=== PATIENT | female | born 1955 | race Caucasian/White ===

== ENCOUNTER 2016-11-16 14:24 | Inpatient (IN) | payer BC, MEDICAID ==
[~2016-11-16] VITALS: Ht 165.1 cm; Wt 63.5 kg
[2016-11-16 14:37] VITALS: Ht 165.1 cm; Wt 63.5 kg
[2016-11-16] MEDS ORDERED: ALBUTEROL 0.5% (NEB) 2.5 MG/0.5 ML AMP INH STA (14:53)
[2016-11-16] MEDS ORDERED: KETOROLAC 15 MG INJ IV STA (14:53)
[2016-11-16] MEDS ORDERED: SOD CHLORIDE 0.9% 1,000 ML IV STA (14:53)
--- NOTE | 2016-11-16 15:04 | ERA ---
ER Documentation Chief Complaint Date/Time DATE: 11/16/16 TIME: 15:01 Chief Complaint palpable chest wall pain since last night, non-radiating described as press HPI 61-year-old woman here for evaluation of anterior chest pain and complaints of shortness of breath, which occurred shortly after being placed at [facility]. She was just discharged from [facility] after being admitted for sepsis. She is on DNR status and has a long history of quadriplegia due to amyotrophic lateral sclerosis, and chronic respiratory failure with tracheostomy on mechanical ventilator dependence. Patient has chronic dysphagia and has a gastrostomy tube as well. Patient is nonverbal and can communicate with a consignee who was later at the bedside. HPI supplemented by speaking to consignee, reviewing residential records, previous medical records. ROS All systems reviewed and are negative except as per history of present illness. Medications Home Meds Reported Medications Eye Lubricant Combination No.1 (Freshkote) 15 Ml Drops, 1 DRP BOTH EYES TID Y for DRY EYES, BOTTLE 11/16/16 Potassium Chloride* (K-Dur*) 20 Meq Tab.prt.sr, 20 MEQ PO DAILY, TAB.SA 11/16/16 Propranolol Hcl* (Propranolol Hcl*) 10 Mg Tablet, 10 MG NG-TUBE Q6, TAB 11/16/16 Sennosides* (Senna Lax*) 8.6 Mg Tablet, 1 TAB NG-TUBE DAILY Y for CONSTIPATION, TAB 11/16/16 Bisacodyl* (Bisacodyl*) 10 Mg Supp, 10 MG GA DAILY, SUPP 11/16/16 Atorvastatin Calcium* (Atorvastatin Calcium*) 20 Mg Tablet, 20 MG NG-TUBE QHS, # 30 TAB 11/16/16 Aspirin (Low Dose Aspirin) 81 Mg Tablet.dr, 81 MG PO DAILY, #30 TAB 11/16/16 Apixaban* (Eliquis*) 5 Mg Tablet, 10 MG PO BID, TAB 11/16/16 Alprazolam* (Xanax*) 0.5 Mg Tab, 0.5 MG PO Q8H Y for ANXIETY, TAB 11/16/16 Allergies Allergies: Coded Allergies: No Known Allergy (Unverified , 11/16/16) PMhx/Soc DNR status, amyotrophic lateral sclerosis, chronic respiratory failure on mechanical ventilator, tracheostomy, colostomy tube, previous cardiac arrest with return of spontaneous circulation, congestive heart failure with left ventricular ejection fraction of 35%, hearing impaired FmHx Family History: No diabetes Physical Exam Vitals Vital Signs Date Time Temp Pulse Resp B/P Pulse Ox O2 Delivery O2 Flow Rate FiO2 11/16/16 16:55 76 18 98 35 11/16/16 15:51 86 18 95 35 11/16/16 14:37 97.8 107 18 89/64 95 11/16/16 14:30 106 18 93 45 Physical Exam GENERAL: Debilitated woman, appears dehydrated, hypotensive initially, afebrile HEENT: Dry mucous membranes, pink conjunctiva, tracheostomy is in place with surrounding skin appearing normal, no cervical spine deformity NEURO: Patient is able to communicate through a consignee CARDIAC: Tachycardic and regular, no murmurs rubs or gallops LUNGS: Crackles at the bases, no wheezing or stridor ABDOMEN: Soft nontender, no guarding, no rigidity, no rebound, no psoas sign no obturator sign. Normoactive bowel sounds SKIN: Warm and dry to touch, no abrasions, contusions, or hematomas, no lacerations, no ecchymosis, no target lesions, and without ulcers EXTREMITIES: No clubbing cyanosis, 2+ pitting edema in the lower extremities bilaterally, calves are bilaterally symmetrical, no Homans sign, no popliteal cord sign. Distal pulses equal and bilateral PSYCH: Depressed affect Result Diagram: 11/16/16 1535 11/16/16 1535 Results 24 hrs Laboratory Tests Test 11/16/16 15:24 11/16/16 15:35 Blood Gas Specimen Source Blood arterial Arterial Blood Date Drawn 11/16/2016 5:45:59 PM Arterial Blood pH (Temp corrected) 7.550 Arterial Blood pCO2 (Temp correct) 29.8mmhg Arterial Blood pO2 (Temp corrected) 103.4mmHG Arterial Blood HCO3 25.5mmol/L Arterial Blood Base Excess 3.3mmol/L Arterial Blood Oxygen Saturation 97.4mmHG Jerel Test ACCEPTAB Arterial Blood Gas Puncture Site Right Radial Arterial Blood Carboxyhemoglobin 0.2% Arterial Blood Methemoglobin 0.3% Blood Gas A-a O2 Differential 111.5mmHg Oxyhemoglobin Percent 96.9% Total Hemoglobin 8.7g/dl Blood Gas Temperature 37.0C Blood Gas Respiration Rate 18.0 Blood Gas Actual Respiration Rate 18 Blood Gas Modality VENT - AC FiO2 35.0% Blood Gas Tidal Volume 455.0mL Blood Gas Low PEEP Setting 5.0cmH2O Blood Gas Inspiratory Pressure 24.0 Blood Gas Notified Whom ELLI RT Blood Gas Notified Time 11/16/2016 6:05:55 PM White Blood Count 10.010^3/ul Red Blood Count 2.9510^6/ul Hemoglobin 8.6g/dl Hematocrit 26.8% Mean Corpuscular Volume 90.8fl Mean Corpuscular Hemoglobin 29.2pg Mean Corpuscular Hemoglobin Concent 32.1g/dl Red Cell Distribution Width 16.0% Platelet Count 05010^3/UL Mean Platelet Volume 8.6fl Neutrophils % 87.0% Lymphocytes % 5.0% Monocytes % 6.9% Eosinophils % 0.3% Basophils % 0.3% Nucleated Red Blood Cells % 0.0/100WBC Neutrophils # 8.710^3/ul Lymphocytes # 0.510^3/ul Monocytes # 0.710^3/ul Eosinophils # 0.010^3/ul Basophils # 0.010^3/ul Nucleated Red Blood Cells # 0.010^3/ul Prothrombin Time 21.2Sec Prothrombin Time Ratio 1.7 INR International Normalized Ratio 1.82 Urine Color STRAW Urine Clarity CLEAR Urine pH 7.0 Urine Specific [place] 1.005 Urine Ketones NEGATIVEmg/dL Urine Nitrite NEGATIVEmg/dL Urine Bilirubin NEGATIVEmg/dL Urine Urobilinogen NEGATIVEmg/dL Urine Leukocyte Esterase TRACELeu/ul Urine Microscopic RBC 2/HPF Urine Microscopic WBC 11/HPF Urine Yeast (Budding) MODERATE/HPF Urine Hemoglobin 1+mg/dL Urine Glucose NEGATIVEmg/dL Urine Total Protein NEGATIVEmg/dl Sodium Level 135mmol/L Potassium Level 2.8mmol/L Chloride Level 101mmol/L Carbon Dioxide Level 28mmol/L Anion Gap 9 Blood Urea Nitrogen 13mg/dl Creatinine 0.35mg/dl Glucose Level 117mg/dl Calcium Level 7.5mg/dl Total Bilirubin 0.2mg/dl Direct Bilirubin 0.00mg/dl Indirect Bilirubin 0.2mg/dl Aspartate Amino Transf (AST/SGOT) 20IU/L Alanine Aminotransferase (ALT/SGPT) 28IU/L Alkaline Phosphatase 109IU/L Troponin I < 0.012ng/ml B-Type Natriuretic Peptide 1090PG/ML Total Protein 5.9g/dl Albumin 2.2g/dl Globulin 3.70g/dl Albumin/Globulin Ratio 0.59 Lipase 95U/L Current Medications Medications (Trade) Dose Ordered Sig/Alida Route PRN Reason Start Time Stop Time Status Last Admin Dose Admin Albuterol 10 mg 10 mg ONCE STAT INH 11/16/16 14:53 11/16/16 15:02 DC 11/16/16 15:50 Sodium Chloride (NS) 1,000 ml @ 1,000 mls/hr Q1H STAT IV 11/16/16 14:53 11/16/16 15:52 DC 11/16/16 15:41 Ketorolac Tromethamine (Toradol) 15 mg ONCE STAT IV 11/16/16 14:53 11/16/16 15:02 DC 11/16/16 15:41 Lorazepam 0.5 mg 0.5 mg ONCE ONCE IV 11/16/16 16:30 11/16/16 16:31 DC 11/16/16 16:09 Potassium Chloride 250 ml @ 62.5 mls/hr ONCE ONCE IVPB 11/16/16 17:00 11/16/16 20:59 Fluconazole/ Sodium Chloride (Diflucan 100 Mg/ NS (Pmx)) 50 ml @ 50 mls/hr ONCE ONCE IVPB 11/16/16 17:00 11/16/16 17:59 DC 11/16/16 17:21 Procedures/MDM IV line was established patient was placed on seam feller rhythm strip revealed sinus tachycardia at 100 bpm. Patient was afebrile but initially hypotensive with a systolic blood pressure about 80 mmHg. Patient has been treated in the past with albuterol and given her complaints of chest pain or shortness of breath I administered albuterol 10 mg via nebulizer, and 1 L normal saline intravenously for initial hypotension. Patient was given lorazepam 0.5 mg IV 1 for anxiety and Toradol 15 mg IV 1 for complaints of pain. EKG performed, read by me revealed a sinus tachycardia 100 bpm, normal axis, narrow QRS complex, no concerning ST elevations or depressions noted. Flattened P and T waves consistent with acute hypokalemia One view chest x-ray performed, read by me reveals bilateral pulmonary vascular congestion, no pneumothorax, no end of the diaphragm, tracheostomy tube in place. CBC reveals anemia with a hemoglobin of 8.6, electrolytes reveal severe hypokalemia 2.8 and hypocalcemia at 7.5, liver function tests normal, troponin negative, BNP elevated over 1000. Urine analysis positive for funguria. Patient's blood pressure has improved and given her complaints of shortness of breath and x-ray findings I did treat her with a touch of furosemide at 20 mg IV 1, also administered calcium gluconate 1 g IV for acute hypocalcemia and fluconazole 200 mg IV for acute funguria. For acute severe hypokalemia patient received IV potassium supplementation Critical Care: Time: 48 minutes, this was time separate from other billable procedures. Treatments/Evaluations: Close monitoring and treatment of unstable vital signs, cardiorespiratory, and neurologic status, while maintaining tight balance of fluid, respiratory, and cardiac interventions. Patient admitted to telemetry setting for continued medical management and pulmonology consultation. Departure Diagnosis: Primary Impression: ALS (amyotrophic lateral sclerosis) Additional Impressions: Acute CHF Qualified Code: I50.41 - Acute combined systolic and diastolic congestive heart failure Acute hypokalemia Hypocalcemia Anemia Qualified Code: D64.9 - Anemia, unspecified type Candiduria Chest pain Qualified Code: R07.9 - Chest pain, unspecified type Condition: Serious ELSIE BENITEZ MD Nov 16, 2016 15:04
[2016-11-16] MEDS ORDERED: ALPR0.5T PO (15:11)
[2016-11-16] MEDS ORDERED: APIX5TAB PO (15:12)
[2016-11-16] MEDS ORDERED: ASPI-664 PO (15:12)
[2016-11-16] MEDS ORDERED: BISA10SU75 PR (15:14)
[2016-11-16] MEDS ORDERED: ATOR20TA38 NG-TUBE (15:14)
[2016-11-16] MEDS ORDERED: SENN-53 NG-TUBE (15:15)
[2016-11-16] MEDS ORDERED: PROP10TA6 NG-TUBE (15:16)
[2016-11-16] MEDS ORDERED: POTA20TA15 PO (15:17)
[2016-11-16] MEDS ORDERED: EYE15DRO BOTH EYES (15:19)
[2016-11-16 15:44] LABS: ABNORMAL IP MESSAGE 1; BASOPHILS % 0.3 % (0.0-2.0); EOSINOPHILS % 0.3 % (0.0-7.0); HEMATOCRIT 26.8 % (37.0-47.0); HEMOGLOBIN 8.6 g/dl (12.0-16.0); LYMPHOCYTES # 0.5 10^3/ul (0.8-2.9); MEAN CORPUSCULAR HEMOGLOBIN 29.2 pg (29.0-33.0); MEAN CORPUSCULAR HGB CONC 32.1 g/dl (32.0-37.0); MEAN CORPUSCULAR VOLUME 90.8 fl (82.0-101.0); MEAN PLATELET VOLUME 8.6 fl (7.4-10.4); MONOCYTE # 0.7 10^3/ul (0.3-0.9); MONOCYTES % 6.9 % (0.0-11.0); NEUTROPHIL # 8.7 10^3/ul (1.6-7.5); PLATELET COUNT 467 10^3/UL (140-415); RED BLOOD COUNT 2.95 10^6/ul (4.20-5.40)
[2016-11-16 15:45] LABS: POSITIVE DIFF @See below
--- NOTE | 2016-11-16 15:49 | RADRPT ---
PROCEDURE: XR Chest. CLINICAL INDICATION: Shortness of breath and abdominal pain TECHNIQUE: Single portable view of the chest was obtained COMPARISON: No priors for comparison FINDINGS: The trachea is midline. Tracheostomy tube in situ. The cardiac silhouette and pulmonary with a promi nent. There are diffuse bilateral infiltrates and bilateral lower lobe consolidation and moderate to large pleural effusions. IMPRESSION: 1. Tracheostomy tube in situ. 2. Cardiomegaly and pulmonary vascular congestion. 3. Diffuse bilateral infiltrates and lower lobe consolidation and moderate to large pleural effusion s. Cannot exclude pneumonia in the appropriate clinical setting. RPTAT: AAPP Physician Ty Date Time Electronically viewed and signed by Physician Ty on 11/16/2016 15:49 JL/
[2016-11-16 15:59] LABS: ADD UMIC YES; UR ASCORBIC ACID NEGATIVE (NEGATIVE); UR BILIRUBIN (Dip) NEGATIVE (NEGATIVE); UR BLOOD (Dip) 1+ mg/dL (NEGATIVE); UR BUDDING YEAST MODERATE /HPF (NONE SEEN); UR CLARITY CLEAR (CLEAR); UR COLOR STRAW (YELLOW); UR GLUCOSE (Dip) NEGATIVE (NEGATIVE); UR KETONES (Dip) NEGATIVE (NEGATIVE); UR LEUKOCYTE ESTERASE (Dip) TRACE Leu/ul (NEGATIVE); UR NITRITE (Dip) NEGATIVE (NEGATIVE); UR RBC 2 /HPF (0-5); UR SPECIFIC GRAVITY (Dip) 1.005 (1.003-1.030); UR TOTAL PROTEIN (Dip) NEGATIVE (NEGATIVE); UR UROBILINOGEN (Dip) NEGATIVE (NEGATIVE)
[2016-11-16 16:01] LABS: INR 1.82; PROTIME 21.2 Sec (12.2-14.2); PT RATIO 1.7
[2016-11-16 16:03] LABS: ALANINE AMINOTRANSFERASE 28 IU/L (13-69); ALBUMIN 2.2 g/dl (3.3-4.9); ALBUMIN/GLOBULIN RATIO 0.59; ALKALINE PHOSPHATASE 109 IU/L (42-121); ANION GAP 9 (8-16); ASPARTATE AMINO TRANSFERASE 20 IU/L (15-46); BILIRUBIN,INDIRECT 0.2 mg/dl (0-1.1); BILIRUBIN,TOTAL 0.2 mg/dl (0.2-1.3); BLOOD UREA NITROGEN 13 mg/dl (7-20); CALCIUM 7.5 mg/dl (8.4-10.2); CARBON DIOXIDE 28 mmol/L (21-31); CHLORIDE 101 mmol/L (97-110); CREATININE 0.35 mg/dl (0.44-1.00); GLUCOSE 117 mg/dl (70-220); SODIUM 135 mmol/L (135-144); TOTAL PROTEIN 5.9 g/dl (6.1-8.1)
[2016-11-16 16:05] LABS: POTASSIUM 2.8 mmol/L (3.5-5.1)
[2016-11-16 16:15] LABS: B-TYPE NATRIURETIC PEPTIDE 1090 PG/ML (0-125)
[2016-11-16 16:16] LABS: TROPONIN-I < 0.012 ng/ml (0.00-0.12)
[2016-11-16] MEDS ORDERED: LORAZEPAM 2 MG INJ IV ONE (16:30)
[2016-11-16] MEDS ORDERED: FLUCONAZOLE 100 MG/NS (PMX) 50 ML IVPB ONE (17:00)
[2016-11-16] MEDS ORDERED: POTASSIUM CHLORIDE 250 ML IVPB ONE (17:00)
[2016-11-16 18:06] LABS: AADO2 Arterial 111.5 mmHg (7.0-24.0); Allen Test ACCEPTAB; Arterial Base Excess 3.3 mmol/L (-3.0-3); Arterial COHb 0.2 % (0.0-3.0); Arterial Fraction of Oxyhgb 96.9 % (93.0-99.0); Arterial HCO3 25.5 mmol/L (22.0-26.0); Arterial MetHb 0.3 % (0.0-1.5); Arterial Total Hemglobin 8.7 g/dl (12.0-18.0); MODE VENT - AC
[2016-11-16] MEDS: POTASSIUM CHLORIDE 250 ML IVPB ONE ×2 (18:30→19:00)
--- NOTE | 2016-11-16 19:01 | HP ---
Date/Time of Note Date/Time of Note DATE: 11/16/16 TIME: 18:38 Assessment/Plan VTE Prophylaxis VTE Prophylaxis Intervention: LMWH Lines/Catheters Reason Cath still needed: urinary retention Assessment/Plan Chief Complaint/Hosp Course 61 yo female with ALS, chronic hypoxemic respiratory failure, recent trach, systolic CHF who was discharged from [place] this AM followign prolonged hospitalization there for respiratoyr failure for which she recieved abx and trach was placed. Sent from SNF for possible complaint of CP. Foudn to have hypokalemia and chronic CHF Hypokalemia: - Suspect 2/2 lasix - Replete w K Acute on chronic CHF exacerbation: - needs lasix but will replete K prior to loop diuretics ALS leading to chronic respiratory failure - Continue MV CP: - Likley 2/2 effusions, unable to provide history - EKG without signs of ischemia - Troponin negative Anemia: - Likely of chornic disease - Trend, check iron stores Discharge back to [facility] hopefully tomorrow DNR Problems: HPI/ROS Admit Date/Time Admit Date/Time Hx of Present Illness 61 yo female wt h/o systolic CHF and ALS presenting with report of chest pain Patient currently sedated and unable to provide a history. [facility] is [facility] and her director of business applications at the bedside. Patient was recently admitted to [facility] for respiratory failure 2/2 pneumoina and ALS. She comepleted a course of abx. She received a trach during the hsopitalization. Also diagnosed with systolic CHF with EF of 35% as well as an UE DVT for which she was prescribed Eliquis. Documents also mention that she was made DNR status during the admission. Interpretor at the bedside confirms that this is her wish The patient was [facility] [place] earlier this AM. When she arrived there, apparently poitned to her chest and there was concern for chest pain, so she was transferred here immediately. Here she was found to have b/l pleural effusions, hypokalemia. Given ativan and is now very sedated. PMH/Family/Social Past Medical History ALS Deafness Systolci CHF Chronic respiratory failure Social History Smoking Status: Former smoker Drug Use: none Exam/Review of Systems Vital Signs Vitals Vital Signs Date Time Temp Pulse Resp B/P Pulse Ox O2 Delivery O2 Flow Rate FiO2 11/16/16 16:55 76 18 98 35 11/16/16 14:37 97.8 89/64 Exam Exam Sedated following benzos Ventilated via trach Lungs rhoncorous anteriorly Heart sound regular Flaccid throughout consistent with ALS Pitting edeam to legs b/l Labs Result Diagram: 11/16/16 1535 11/16/16 1535 Medications Medications Current Medications Potassium Chloride 250 ml @ 62.5 mls/hr ONCE ONCE IVPB ; Start 11/16/16 at 17: 00; Stop 11/16/16 at 20:59 Calcium Gluconate/ Sodium Chloride (Ca Gluc/NS) 110 ml @ 110 mls/hr ONCE IVPB ; Start 11/16/16 at 20:00; Stop 11/16/16 at 20:59 LANA SHARMA MD Nov 16, 2016 19:00
[2016-11-16] MEDS ORDERED: NACL 0.9% 3 ML SYG IV SCH (19:30)
[2016-11-16] MEDS ORDERED: CALCIUM GLUCONATE 10% 1 GM in SOD CHLORIDE 0.9% 100 ML IVPB SCH (20:00)
[2016-11-16 22:29] VITALS: TEMP 98
[2016-11-16 23:45] VITALS: RESP 19
[2016-11-17] VITALS (26 sets, daily range): BP systolic 89–129; BP diastolic 53–78; PULSE 74–92; RESP 18
[2016-11-17] MEDS ORDERED: ARTIFICIAL TEARS 15 ML OPH BOTH EYES PRN (03:00)
[2016-11-17] MEDS ORDERED: PENDING SANTYL ORDER FOR WOUND CARE XX PRN (04:30)
[2016-11-17 06:37] LABS: IRON 16 ug/dl (35-150)
[2016-11-17 06:41] LABS: ALBUMIN/GLOBULIN RATIO 0.6; BILIRUBIN,INDIRECT 0.2 mg/dl (0-1.1); BILIRUBIN,TOTAL 0.2 mg/dl (0.2-1.3); CALCIUM 7.3 mg/dl (8.4-10.2); CREATININE 0.31 mg/dl (0.44-1.00); MAGNESIUM 1.6 mg/dl (1.7-2.5); TOTAL PROTEIN 5.3 g/dl (6.1-8.1)
[2016-11-17 06:47] LABS: TOTAL IRON BINDING CAPACITY 115 ug/dl (241-421)
[2016-11-17 07:06] LABS: POTASSIUM 2.7 mmol/L (3.5-5.1)
[2016-11-17] MEDS ORDERED: ENOXAPARIN 40 MG/0.4 ML SYG SC SCH (09:00)
[2016-11-17] MEDS: BISACODYL 10 MG SUPP PR SCH (09:00)
[2016-11-17] MEDS: APIXABAN 5 MG TABLET GTB SCH ×2 (09:56→22:36)
[2016-11-17] MEDS: ASPIRIN 81 MG TAB GTB SCH (09:56)
[2016-11-17] MEDS: POTASSIUM CHLORIDE 250 ML IVPB SCH ×2 (09:57→11:30)
[2016-11-17] MEDS: POTASSIUM CHLORIDE 20 MEQ POWDER FOR ORAL SOLN GTB SCH (10:00)
[2016-11-17] MEDS ORDERED: POTASSIUM CHLORIDE (SR) 20 MEQ TAB PO STA (10:25)
[2016-11-17] MEDS ORDERED: POTASSIUM CHLORIDE 250 ML IVPB ONE (10:30)
[2016-11-17] MEDS: morphine 2 MG INJ IV PRN ×3 (10:41→22:50)
[2016-11-17] MEDS: ONDANSETRON 4 MG INJ IV PRN ×2 (10:56→17:05)
--- NOTE | 2016-11-17 13:16 | PN ---
Date/Time of Note Date/Time of Note DATE: 11/17/16 TIME: 13:11 Assessment/Plan VTE Prophylaxis VTE Prophylaxis Intervention: LMWH Lines/Catheters IV Catheter Type (from Nrsg): Saline Lock Urinary Cath still in place: Yes Reason Cath still needed: urinary retention Assessment/Plan Chief Complaint/Hosp Course 61 yo female with ALS, Deafness, chronic respiratory failure on MV, recent trach , systolic CHF who was discharged from [place] this AM followign prolonged hospitalization there for respiratoyr failure for which she recieved abx and trach was placed. Sent from SNF for possible complaint of CP. Found to have hypokalemia and chronic CHF Hypokalemia: - Suspect 2/2 lasix - Replete w K Acute on chronic CHF exacerbation: - needs lasix but will replete K prior to loop diuretics ALS leading to chronic respiratory failure - Continue MV CP: - Likley 2/2 effusions, unable to provide history - EKG without signs of ischemia - Troponin negative Anemia: - Likely of chornic disease Need to further investigate patient's goals of care as she does not seem to want to continue with any interventions from what I am able to understand from her bark fitter. Will consult hospice DNR Problems: Subjective 24 Hr Interval Summary Free Text/Dictation Hypokalemia persists so now diuretics started Patient alert today. machine i cutter at bedside. Patient seem very opposed to returning to [facility]. Per bark fitter, keeps saying she wants to be allowed to pass away. Apparently there has been disagreement on palliative care between the patient and her daughter who very much is urging her mom to continue aggressive therapy and avoid hospice. No more complains of chest apain Exam/Review of Systems Vital Signs Vitals Vital Signs Date Time Temp Pulse Resp B/P Pulse Ox O2 Delivery O2 Flow Rate FiO2 11/17/16 12:25 98.0 88 18 89/53 97 11/17/16 11:10 35 11/16/16 22:29 Mechanical Ventilator Intake and Output 11/16/16 11/16/16 11/17/16 15:00 23:00 07:00 Intake Total 1050 ml Output Total 50 ml Balance 1050 ml -50 ml Exam Alert, comfortable Deaf Able to use her R toe to sign to intepreter via alphabet board Edematous MV via trach PEG Results Result Diagram: 11/16/16 1535 11/17/16 0543 Results 24 hrs Laboratory Tests Test 11/16/16 15:24 11/16/16 15:35 11/17/16 05:43 Blood Gas Specimen Source Blood arterial Arterial Blood Date Drawn 11/16/2016 5:45:59 PM Arterial Blood pH (Temp corrected) 7.550 H Arterial Blood pCO2 (Temp correct) 29.8 L Arterial Blood pO2 (Temp corrected) 103.4 H Arterial Blood HCO3 25.5 Arterial Blood Base Excess 3.3 H Arterial Blood Oxygen Saturation 97.4 Jerel Test ACCEPTAB Arterial Blood Gas Puncture Site Right Radial Arterial Blood Carboxyhemoglobin 0.2 Arterial Blood Methemoglobin 0.3 Blood Gas A-a O2 Differential 111.5 H Oxyhemoglobin Percent 96.9 Total Hemoglobin 8.7 L Blood Gas Temperature 37.0 Blood Gas Respiration Rate 18.0 Blood Gas Actual Respiration Rate 18 Blood Gas Modality VENT - AC FiO2 35.0 Blood Gas Tidal Volume 455.0 Blood Gas Low PEEP Setting 5.0 Blood Gas Inspiratory Pressure 24.0 Blood Gas Notified [place] CASTELLANOS Blood Gas Notified Time 11/16/2016 6:05:55 PM White Blood Count 10.0 Red Blood Count 2.95 L Hemoglobin 8.6 L Hematocrit 26.8 L Mean Corpuscular Volume 90.8 Mean Corpuscular Hemoglobin 29.2 Mean Corpuscular Hemoglobin Concent 32.1 Red Cell Distribution Width 16.0 H Platelet Count 467 H Mean Platelet Volume 8.6 Neutrophils % 87.0 H Lymphocytes % 5.0 L Monocytes % 6.9 Eosinophils % 0.3 Basophils % 0.3 Nucleated Red Blood Cells % 0.0 Neutrophils # 8.7 H Lymphocytes # 0.5 L Monocytes # 0.7 Eosinophils # 0.0 Basophils # 0.0 Nucleated Red Blood Cells # 0.0 Prothrombin Time 21.2 H Prothrombin Time Ratio 1.7 INR International Normalized Ratio 1.82 Urine Color STRAW Urine Clarity CLEAR Urine pH 7.0 Urine Specific [place] 1.005 Urine Ketones NEGATIVE Urine Nitrite NEGATIVE Urine Bilirubin NEGATIVE Urine Urobilinogen NEGATIVE Urine Leukocyte Esterase TRACE A Urine Microscopic RBC 2 Urine Microscopic WBC 11 H Urine Yeast (Budding) MODERATE A Urine Hemoglobin 1+ H Urine Glucose NEGATIVE Urine Total Protein NEGATIVE Sodium Level 135 136 Potassium Level 2.8 *L 2.7 *L Chloride Level 101 104 Carbon Dioxide Level 28 27 Anion Gap 9 8 Blood Urea Nitrogen 13 11 Creatinine 0.35 L 0.31 L Glucose Level 117 61 #L Calcium Level 7.5 L 7.3 L Total Bilirubin 0.2 0.2 Direct Bilirubin 0.00 0.00 Indirect Bilirubin 0.2 0.2 Aspartate Amino Transf (AST/SGOT) 20 21 Alanine Aminotransferase (ALT/SGPT) 28 29 Alkaline Phosphatase 109 91 Troponin I < 0.012 < 0.012 B-Type Natriuretic Peptide 1090 H Total Protein 5.9 L 5.3 L Albumin 2.2 L 2.0 L Globulin 3.70 H 3.30 H Albumin/Globulin Ratio 0.59 0.60 Lipase 95 Magnesium Level 1.6 L Iron Level 16 L Total Iron Binding Capacity 115 L Percent Iron Saturation 14 L Ferritin 699.0 H Medications Medications Current Medications Enoxaparin Sodium (Lovenox) 40 mg DAILY SC ; Start 11/17/16 at 09:00; Status Future Hold Alprazolam (Xanax) 0.5 mg Q8H PRN GTB ANXIETY; Start 11/17/16 at 03:00 Apixaban (Eliquis) 10 mg BID GTB Last administered on 11/17/16 09:56; Admin Dose 10 MG; Start 11/17/16 at 09:00 Aspirin (Aspirin) 81 mg DAILY GTB Last administered on 11/17/16 09:56; Admin Dose 81 MG; Start 11/17/16 at 09:00 Atorvastatin Calcium (Lipitor) 20 mg QHS GTB ; Start 11/17/16 at 21:00 Bisacodyl (Dulcolax Supp) 10 mg DAILY DE ; Start 11/17/16 at 09:00 Potassium Chloride (Potassium Chloride Pwd/Soln) 20 meq DAILY GTB Last administered on 11/17/16 10:00; Admin Dose 20 MEQ; Start 11/17/16 at 09:00 Senna (Senokot) 1 tab DAILY PRN GTB CONSTIPATION; Start 11/17/16 at 03:00 Eye Lubricant (Artificial Tears Oph) 1 drop TID PRN BOTH EYES DRY EYES; Start 11/17/16 at 03:00 Miscellaneous Information This patient ames... PRN PRN XX WOUND CARE; Start 11/17 at 04:30 Potassium Chloride (KCl 40 MEQ/250 ML NS) 250 ml @ 62.5 mls/hr Q4H IVPB Last administered on 11/17/16 09:57; Admin Dose 62.5 MLS/HR; Start 11/17/16 at 07:30 ; Stop 11/17/16 at 15:29 Morphine Sulfate 2 mg 2 mg Q2H PRN IV pain Last administered on 11/17/16 10:41 ; Admin Dose 2 MG; Start 11/17/16 at 10:30 Potassium Chloride (KCl 40 MEQ/250 ML NS) 250 ml @ 62.5 mls/hr ONCE ONCE IVPB ; Start 11/17/16 at 10:30; Stop 11/17/16 at 14:29 Ondansetron HCl (Zofran Inj) 4 mg Q4H PRN IV NAUSEA AND/OR VOMITING Last administered on 11/17/16 10:56; Admin Dose 4 MG; Start 11/17/16 at 11:00 LANA SHARMA MD Nov 17, 2016 13:16
[2016-11-17 17:31] LABS: CALCIUM 7.7 mg/dl (8.4-10.2); CREATININE 0.31 mg/dl (0.44-1.00); POTASSIUM 4.7 mmol/L (3.5-5.1)
[2016-11-17] MEDS: ATORVASTATIN 20 MG TAB GTB SCH (22:35)
--- NOTE | 2016-11-17 23:16 | RADRPT ---
Echocardiogram Report Patient Name: NORBERT HERNANDEZ Gender: Female Date: 1955 Study Date: 17-Nov-2016 Frontend Engineer: Misty [facility] Location: 529-A Ref. Physician: LANA SHARMA Quality: Adequate Procedures: Transthoracic echocardiogram with complete 2D, M-Mode, and doppler examination. Indications: Congestive Heart Failure. 2D/M Mode Doppler Measurement Value Normal Ranges Measurement Value Normal Ranges LVIDd 2D 3.9 3.5 - 5.6 cm AV Peak Fredi 1.1 m/sec LVIDs 2D 2.7 2.1 - 4.1 cm AV Peak PG 5.0 mmHg FS 2D 31.9 % LVOT Peak Fredi 1.0 m/sec LVPWd 2D 0.9 0.6 - 1.1 cm LVOT Peak PG 4.0 mmHg IVSd 2D 0.8 0.6 - 1.1 cm MV E Peak Fredi 0.8 m/sec IVS/LVPW 2D 0.9 MV A Peak Fredi 0.9 m/sec AoR Diam 2D 2.2 2.0 - 3.7 cm MV E/A 0.8 LA/Ao 2D 1 0 - 1 MV Decel Time 176 msec EDV 2D 60.2 cm3 MV E/A 0.8 ESV 2D 19.0 cm3 TR Peak Fredi 2.3 m/sec LA Dimen 2D 2.4 2.3 - 4.0 cm TR Peak PG 22.0 mmHg RVSP 30.0 mmHg Findings Left Ventricle: Lower limits of normal systolic function. Normal left ventricular cavity size. Normal left ventricular wall thickness. Ejection fraction is visually estimated at 50 %. Tissue Doppler/Mitral Doppler indices are consistent with impaired relaxation (Stage I diastolic dysfunction). Right Ventricle: Normal right ventricular size. Normal right ventricular systolic function. Left Atrium: The left atrium is normal in size. Right Atrium: The right atrium is normal in size. Mitral Valve: Mitral valve leaflets appear mildly thickened. Mild mitral annular calcification. Trace mitral regurgitation. Aortic Valve: No significant aortic stenosis or insufficiency. Aortic cusps appear mildly calcified. Tricuspid Valve: Normal appearance of the tricuspid valve. Estimated peak PA systolic pressure 30 mmHg. There is mild tricuspid regurgitation. Pulmonic Valve: Pulmonic valve not well visualized. There is trace pulmonic regurgitation. Pericardium: Trivial pericardial effusion. Left pleural effusion seen. Aorta: Normal aortic root. IVC: Inferior vena cava without respiratory collapse, however, patient on ventilator. Conclusions Lower limits of normal systolic function. Normal left ventricular cavity size. Normal left ventricular wall thickness. Ejection fraction is visually estimated at 50 %. Tissue Doppler/Mitral Doppler indices are consistent with impaired relaxation (Stage I diastolic dysfunction). Normal right ventricular size. Normal right ventricular systolic function. Mitral valve leaflets appear mildly thickened. Mild mitral annular calcification. Trace mitral regurgitation. No significant aortic stenosis or insufficiency. Aortic cusps appear mildly calcified. Normal appearance of the tricuspid valve. Estimated peak PA systolic pressure 30 mmHg. There is mild tricuspid regurgitation. Trivial pericardial effusion. Left pleural effusion seen. Electronically Signed By: Naeem Courtney 17-Nov-2016 23:15:36 -0700 Patient Name: NORBERT HERNANDEZ Study Date: 17-Nov-2016 [id number]
[2016-11-18] VITALS (25 sets, daily range): BP systolic 91–108; BP diastolic 52–67; PULSE 68–92; RESP 17–18
[2016-11-18] MEDS: morphine 2 MG INJ IV PRN ×4 (01:55→23:48)
[2016-11-18] MEDS: ALPRAZOLAM 0.5 MG TAB GTB PRN (01:55)
[2016-11-18] MEDS: BISACODYL 10 MG SUPP PR SCH (09:00)
[2016-11-18] MEDS: POTASSIUM CHLORIDE 20 MEQ POWDER FOR ORAL SOLN GTB SCH (09:08)
[2016-11-18] MEDS: ONDANSETRON 4 MG INJ IV PRN ×2 (09:09→14:41)
[2016-11-18] MEDS: APIXABAN 5 MG TABLET GTB SCH ×2 (09:09→21:12)
[2016-11-18] MEDS: ASPIRIN 81 MG TAB GTB SCH (09:09)
[2016-11-18] MEDS: LISINOPRIL 5 MG TAB PO SCH (10:00)
[2016-11-18 11:19] LABS: BASOPHIL # 0.1 10^3/ul (0.0-0.1); BASOPHILS % 0.6 % (0.0-2.0); EOSINOPHILS # 0.3 10^3/ul (0.0-0.5); EOSINOPHILS % 3.5 % (0.0-7.0); HEMATOCRIT 27.8 % (37.0-47.0); HEMOGLOBIN 8.6 g/dl (12.0-16.0); LYMPHOCYTES # 1.1 10^3/ul (0.8-2.9); LYMPHOCYTES % 13.7 % (15.0-51.0); MEAN CORPUSCULAR HEMOGLOBIN 28.7 pg (29.0-33.0); MEAN CORPUSCULAR HGB CONC 30.9 g/dl (32.0-37.0); MEAN CORPUSCULAR VOLUME 92.7 fl (82.0-101.0); MEAN PLATELET VOLUME 9.1 fl (7.4-10.4); MONOCYTE # 0.9 10^3/ul (0.3-0.9); MONOCYTES % 10.7 % (0.0-11.0); NEUTROPHIL # 5.6 10^3/ul (1.6-7.5); PLATELET COUNT 383 10^3/UL (140-415); RED CELL DISTRIBUTION WIDTH 15.9 % (11.5-14.5); WHITE BLOOD COUNT 7.9 10^3/ul (4.8-10.8)
[2016-11-18 11:42] LABS: ALBUMIN/GLOBULIN RATIO 0.54; CALCIUM 7.5 mg/dl (8.4-10.2); CREATININE 0.32 mg/dl (0.44-1.00); POTASSIUM 4.4 mmol/L (3.5-5.1); TOTAL PROTEIN 5.7 g/dl (6.1-8.1)
--- NOTE | 2016-11-18 15:45 | PN ---
Date/Time of Note Date/Time of Note DATE: 11/18/16 TIME: 15:43 Assessment/Plan VTE Prophylaxis VTE Prophylaxis Intervention: LMWH Lines/Catheters IV Catheter Type (from Nrs): Saline Lock Urinary Cath still in place: Yes Reason Cath still needed: urinary retention Assessment/Plan Chief Complaint/Hosp Course 61 yo female with ALS, Deafness, chronic respiratory failure on MV, recent trach , systolic CHF who was discharged from [place] this AM followign prolonged hospitalization there for respiratoyr failure for which she recieved abx and trach was placed. Sent from SNF for possible complaint of CP. Found to have hypokalemia and chronic CHF Hypokalemia: - Resolved Acute on chronic CHF exacerbation: - Start lasix diuresis - LORI started, BB also indicated if in GOC ALS leading to chronic respiratory failure - Continue MV CP: - Likley 2/2 effusions, unable to provide history - EKG without signs of ischemia - Troponin negative Anemia: - Likely of chornic disease Need to further investigate patient's goals of care as she does not seem to want to continue with any interventions from what I am able to understand from her burn nurse. Will consult hospice. Patient stable for discharge to SNF DNR Problems: Subjective 24 Hr Interval Summary Free Text/Dictation Hypokalemia resolved, diuretics started today Discussion with patient's daughter (also deaf) and patient via chief mate Patient very much would like to return home eventually. Last had planned for this and recieved 6 hours of home care daily. Daughter feels like this is not enough and she is incapable of providing 24 hour care her mom likely needs. Decision made to transfer back to [facility] in [place] if possible Exam/Review of Systems Vital Signs Vitals Vital Signs Date Time Temp Pulse Resp B/P Pulse Ox O2 Delivery O2 Flow Rate FiO2 11/18/16 15:31 76 18 94 35 11/18/16 13:47 98.0 93/55 11/16/16 22:29 Mechanical Ventilator Intake and Output 11/17/16 11/17/16 11/18/16 15:00 23:00 07:00 Intake Total 80 ml 416 ml Output Total 800 ml 1100 ml Balance -720 ml -684 ml Results Result Diagram: 11/18/16 1100 11/18/16 1100 Results 24 hrs Laboratory Tests Test 11/17/16 17:01 11/18/16 11:00 Sodium Level 134 L 135 Potassium Level 4.7 # 4.4 Chloride Level 105 106 Carbon Dioxide Level 26 28 Anion Gap 8 5 L Blood Urea Nitrogen 12 10 Creatinine 0.31 L 0.32 L Glucose Level 62 L 84 Calcium Level 7.7 L 7.5 L White Blood Count 7.9 # Red Blood Count 3.00 L Hemoglobin 8.6 L Hematocrit 27.8 L Mean Corpuscular Volume 92.7 Mean Corpuscular Hemoglobin 28.7 L Mean Corpuscular Hemoglobin Concent 30.9 L Red Cell Distribution Width 15.9 H Platelet Count 383 Mean Platelet Volume 9.1 Neutrophils % 71.0 Lymphocytes % 13.7 L Monocytes % 10.7 Eosinophils % 3.5 Basophils % 0.6 Nucleated Red Blood Cells % 0.0 Neutrophils # 5.6 Lymphocytes # 1.1 Monocytes # 0.9 Eosinophils # 0.3 Basophils # 0.1 Nucleated Red Blood Cells # 0.0 Total Bilirubin 0.0 L Direct Bilirubin 0.00 Indirect Bilirubin 0.0 Aspartate Amino Transf (AST/SGOT) 20 Alanine Aminotransferase (ALT/SGPT) 27 Alkaline Phosphatase 98 Total Protein 5.7 L Albumin 2.0 L Globulin 3.70 H Albumin/Globulin Ratio 0.54 Medications Medications Current Medications Enoxaparin Sodium (Lovenox) 40 mg DAILY SC ; Start 11/17/16 at 09:00; Status Future Hold Alprazolam (Xanax) 0.5 mg Q8H PRN GTB ANXIETY Last administered on 11/18/16 01 :55; Admin Dose 0.5 MG; Start 11/17/16 at 03:00 Apixaban (Eliquis) 10 mg BID GTB Last administered on 11/18/16 09:09; Admin Dose 10 MG; Start 11/17/16 at 09:00 Aspirin (Aspirin) 81 mg DAILY GTB Last administered on 11/18/16 09:09; Admin Dose 81 MG; Start 11/17/16 at 09:00 Atorvastatin Calcium (Lipitor) 20 mg QHS GTB Last administered on 11/17/16 22: 35; Admin Dose 20 MG; Start 11/17/16 at 21:00 Bisacodyl (Dulcolax Supp) 10 mg DAILY [place] ; Start 11/17/16 at 09:00 Potassium Chloride (Potassium Chloride Pwd/Soln) 20 meq DAILY GTB Last administered on 11/18/16 09:08; Admin Dose 20 MEQ; Start 11/17/16 at 09:00 Senna (Senokot) 1 tab DAILY PRN GTB CONSTIPATION; Start 11/17/16 at 03:00 Eye Lubricant (Artificial Tears Oph) 1 drop TID PRN BOTH EYES DRY EYES; Start 11/17/16 at 03:00 Miscellaneous Information (Pending [facility] Order For Wound Care) This patient ames... PRN PRN XX WOUND CARE; Start 11/17/16 at 04:30 Morphine Sulfate (morphine) 2 mg Q2H PRN IV pain Last administered on 14:41; Admin Dose 2 MG; Start 11/17/16 at 10:30 Ondansetron HCl (Zofran Inj) 4 mg Q4H PRN IV NAUSEA AND/OR VOMITING Last administered on 11/18/16 14:41; Admin Dose 4 MG; Start 11/17/16 at 11:00 Lisinopril (Zestril) 5 mg DAILY PO ; Start 11/18/16 at 10:00 ALNA SHARMA MD Nov 18, 2016 15:45
[2016-11-18] MEDS: FUROSEMIDE 20 MG INJ IV SCH ×2 (17:50→18:00)
[2016-11-18] MEDS: ATORVASTATIN 20 MG TAB GTB SCH (21:12)
[2016-11-19] VITALS (23 sets, daily range): BP systolic 92–109; BP diastolic 51–70; PULSE 71–91; RESP 17–19
[2016-11-19] MEDS: FUROSEMIDE 20 MG INJ IV SCH ×2 (06:38→18:00)
[2016-11-19] MEDS: morphine 2 MG INJ IV PRN ×3 (06:52→22:42)
[2016-11-19] MEDS: ASPIRIN 81 MG TAB GTB SCH (08:58)
[2016-11-19] MEDS: POTASSIUM CHLORIDE 20 MEQ POWDER FOR ORAL SOLN GTB SCH (08:58)
[2016-11-19] MEDS: APIXABAN 5 MG TABLET GTB SCH ×2 (08:59→20:49)
[2016-11-19] MEDS: LISINOPRIL 5 MG TAB PO SCH (08:59)
[2016-11-19] MEDS: BISACODYL 10 MG SUPP PR SCH (09:00)
[2016-11-19] MEDS ORDERED: ALBUTEROL/IPRATROPIUM (NEB) 3 ML AMP HHN SCH (17:00)
--- NOTE | 2016-11-19 17:18 | PN ---
Date/Time of Note Date/Time of Note DATE: 11/19/16 TIME: 17:10 Assessment/Plan VTE Prophylaxis VTE Prophylaxis Intervention: other Lines/Catheters IV Catheter Type (from Nrsg): Saline Lock Assessment/Plan Chief Complaint/Hosp Course 1. Advanced ALS with chronic respiratory failure status post tracheostomy on vent Continue vent management, pulmonology consultation Daughter would like to make changes trach site but sister does not want to make these changes as she was told by regional safety manager that her trach should be left as is, will discuss with pulmonology, RT aware 2. Chest pain secondary to pulmonary edema compared to mild CHF exacerbation Echo shows an EF of 50% Continue diuresis LORI started, BB also indicated if in GOC Troponin negative, EKG without signs of ischemia 3. Deafness 4. Anemia likely of chronic disease Prophylaxis: Eliquis Problems: Subjective 24 Hr Interval Summary Subjective hx not possible: pt non-verbal Exam/Review of Systems Vital Signs Vitals Vital Signs Date Time Temp Pulse Resp B/P Pulse Ox O2 Delivery O2 Flow Rate FiO2 11/19/16 16:31 81 11/19/16 15:30 18 99 35 11/19/16 15:11 98.6 105/70 11/19/16 06:30 Mechanical Ventilator Intake and Output 11/18/16 11/18/16 11/19/16 15:00 23:00 07:00 Intake Total 460 ml 365 ml Output Total 800 ml 600 ml Balance -340 ml -235 ml Exam Constitutional: alert, non-verbal Respiratory: clear to auscultation Cardiovascular: regular rate and rhythm Gastrointestinal: soft, No distended Musculoskeletal: nl extremities to inspection Results Result Diagram: 11/18/16 1100 11/18/16 1100 Medications Medications Current Medications Enoxaparin Sodium (Lovenox) 40 mg DAILY SC ; Start 11/17/16 at 09:00; Status Future Hold Alprazolam (Xanax) 0.5 mg Q8H PRN GTB ANXIETY Last administered on 11/18/16 01 :55; Admin Dose 0.5 MG; Start 11/17/16 at 03:00 Apixaban (Eliquis) 10 mg BID GTB Last administered on 11/19/16 08:59; Admin Dose 10 MG; Start 11/17/16 at 09:00 Aspirin (Aspirin) 81 mg DAILY GTB Last administered on 11/19/16 08:58; Admin Dose 81 MG; Start 11/17/16 at 09:00 Atorvastatin Calcium (Lipitor) 20 mg QHS GTB Last administered on 11/18/16 21: 12; Admin Dose 20 MG; Start 11/17/16 at 21:00 Bisacodyl (Dulcolax Supp) 10 mg DAILY [place] ; Start 11/17/16 at 09:00 Potassium Chloride (Potassium Chloride Pwd/Soln) 20 meq DAILY GTB Last administered on 11/19/16 08:58; Admin Dose 20 MEQ; Start 11/17/16 at 09:00 Senna (Senokot) 1 tab DAILY PRN GTB CONSTIPATION; Start 11/17/16 at 03:00 Eye Lubricant (Artificial Tears Oph) 1 drop TID PRN BOTH EYES DRY EYES; Start 11/17/16 at 03:00 Miscellaneous Information (Pending [facility] Order For Wound Care) This patient ames... PRN PRN XX WOUND CARE; Start 11/17/16 at 04:30 Morphine Sulfate (morphine) 2 mg Q2H PRN IV pain Last administered on 13:41; Admin Dose 2 MG; Start 11/17/16 at 10:30 Ondansetron HCl (Zofran Inj) 4 mg Q4H PRN IV NAUSEA AND/OR VOMITING Last administered on 11/18/16 14:41; Admin Dose 4 MG; Start 11/17/16 at 11:00 Lisinopril (Zestril) 5 mg DAILY PO ; Start 11/18/16 at 10:00 PATRICK NEWMAN Nov 19, 2016 17:18
[2016-11-19] MEDS: ATORVASTATIN 20 MG TAB GTB SCH (20:49)
[2016-11-19] MEDS: IPRATROPIUM (HFA) 12.9 GM INHALER INH SCH (21:37)
[2016-11-19] MEDS: ALBUTEROL 18 GM INHALER INH SCH (21:37)
[2016-11-20] VITALS (23 sets, daily range): BP systolic 86–108; BP diastolic 52–63; PULSE 72–91; RESP 17–21
[2016-11-20] MEDS: ALBUTEROL 18 GM INHALER INH SCH ×6 (01:21→20:57)
[2016-11-20] MEDS: IPRATROPIUM (HFA) 12.9 GM INHALER INH SCH ×6 (01:21→20:57)
[2016-11-20] MEDS: morphine 2 MG INJ IV PRN ×6 (03:19→21:23)
[2016-11-20] MEDS: FUROSEMIDE 20 MG INJ IV SCH ×2 (06:00→18:28)
[2016-11-20 08:27] LABS: BASOPHIL # 0.1 10^3/ul (0.0-0.1); BASOPHILS % 0.6 % (0.0-2.0); EOSINOPHILS # 0.4 10^3/ul (0.0-0.5); EOSINOPHILS % 5.3 % (0.0-7.0); HEMOGLOBIN 8.6 g/dl (12.0-16.0); LYMPHOCYTES # 1.5 10^3/ul (0.8-2.9); LYMPHOCYTES % 19.5 % (15.0-51.0); MEAN CORPUSCULAR HEMOGLOBIN 28.5 pg (29.0-33.0); MEAN CORPUSCULAR HGB CONC 30.7 g/dl (32.0-37.0); MEAN CORPUSCULAR VOLUME 92.7 fl (82.0-101.0); MEAN PLATELET VOLUME 10.1 fl (7.4-10.4); MONOCYTE # 0.9 10^3/ul (0.3-0.9); MONOCYTES % 11.5 % (0.0-11.0); NEUTROPHIL # 4.8 10^3/ul (1.6-7.5); NEUTROPHILS % 62.6 % (39.0-77.0); PLATELET COUNT 412 10^3/UL (140-415); RED BLOOD COUNT 3.02 10^6/ul (4.20-5.40); RED CELL DISTRIBUTION WIDTH 15.9 % (11.5-14.5); WHITE BLOOD COUNT 7.7 10^3/ul (4.8-10.8)
[2016-11-20 08:50] LABS: CALCIUM 7.4 mg/dl (8.4-10.2); CREATININE 0.3 mg/dl (0.44-1.00); MAGNESIUM 1.6 mg/dl (1.7-2.5); POTASSIUM 3.7 mmol/L (3.5-5.1)
[2016-11-20] MEDS: BISACODYL 10 MG SUPP PR SCH ×2 (09:00→09:10)
[2016-11-20] MEDS: ASPIRIN 81 MG TAB GTB SCH (09:09)
[2016-11-20] MEDS: APIXABAN 5 MG TABLET GTB SCH ×2 (09:09→21:11)
[2016-11-20] MEDS: POTASSIUM CHLORIDE 20 MEQ POWDER FOR ORAL SOLN GTB SCH (09:10)
[2016-11-20] MEDS: LISINOPRIL 5 MG TAB PO SCH (09:10)
[2016-11-20] MEDS ORDERED: MAGNESIUM SULFATE 2 GM/50 ML 50 ML IVPB ONE (10:30)
--- NOTE | 2016-11-20 14:57 | CONS ---
Date/Time of Note Date/Time of Note DATE: 11/20/16 TIME: 14:52 Assessment/Plan Assessment/Plan Additional Assessment/Plan Chest x-ray was reviewed from fourth of this month which is showing extensive bilateral infiltrates. Difficult to rule out superimposed pulmonary fibrosis. 2D echocardiogram results are indicating preserved systolic function. Assessment and recommendations; 1. Patient admitted with anemia and chest pain. 2. Extensive bilateral alveolar infiltrates indicative of pneumonia versus interstitial fibrosis. 3. Chronic respiratory failure due to ALS. Add vancomycin and cefepime. Obtain follow-up chest x-ray. Consultation Date/Type/Reason Admit Date/Time Date of Consultation: Nov 20, 2016 Type of Consultation: Pulmonary Reason for Consultation Pulmonary consultation requested for evaluation of chronic respiratory failure. History of presenting any; patient is a 7-year-old lady who was admitted because of anemia. Patient was recently hospitalized at [facility] for pneumonia where she required a tracheostomy for amyotrophic lateral sclerosis. Patient is deaf and history was obtained by means of an galley worker in the room as well as from medical records. Past medical history; 1. Patient with a history of ALS. 2. Recent tracheostomy and G-tube placement. 3. Functional quadriplegia. 4. Anemia. 5. Apparent recent pneumonia. 6. Possibly CHF. Medications: Reviewed. Allergies; none. Social history; patient never smoked. Family history; not contributory. Occupational history; patient is on disability. Review of systems; limited review of systems could be obtained. Patient denies any chest pain, shortness of breath. Any abdominal pain. General exam; elderly woman, on ventilator via tracheostomy, awake, currently in no distress. Social History Smoking Status: Former smoker Drug Use: none Exam/Review of Systems Vital Signs Vitals Vital Signs Date Time Temp Pulse Resp B/P Pulse Ox O2 Delivery O2 Flow Rate FiO2 11/20/16 12:00 81 11/20/16 12:00 98.1 18 98/54 98 11/20/16 11:10 35 11/19/16 06:30 Mechanical Ventilator Intake and Output 11/19/16 11/19/16 11/20/16 15:00 23:00 07:00 Intake Total 500 ml 620 ml Output Total 2100 ml 1000 ml Balance -1600 ml -380 ml Exam HEENT exam; supple neck, no JVD. No lymphadenopathy. Midline trachea. No thyromegaly. Tracheostomy placed. Patient has fair dentition. Pupils are equal and reactive to light. Chest exam; scattered crackles bilaterally. S1-S2 audible, no murmurs. Regular rhythm. Abdomen exam; soft, no organomegaly. G-tube in place. Bowel sounds audible. Abdomen is nondistended. Extremity exam; 2+ edema in lower extremities with extension contractions. GLASS SELECTOR exam; patient is awake and able to move left upper extremity to very minimal extent. Results Result Diagram: 11/20/16 0750 11/20/16 0749 Results 24 hrs Laboratory Tests Test 11/20/16 07:49 11/20/16 07:50 Sodium Level 136 Potassium Level 3.7 Chloride Level 104 Carbon Dioxide Level 30 Anion Gap 6 L Blood Urea Nitrogen 9 Creatinine 0.30 L Glucose Level 91 Calcium Level 7.4 L Magnesium Level 1.6 L White Blood Count 7.7 Red Blood Count 3.02 L Hemoglobin 8.6 L Hematocrit 28.0 L Mean Corpuscular Volume 92.7 Mean Corpuscular Hemoglobin 28.5 L Mean Corpuscular Hemoglobin Concent 30.7 L Red Cell Distribution Width 15.9 H Platelet Count 412 Mean Platelet Volume 10.1 Neutrophils % 62.6 Lymphocytes % 19.5 Monocytes % 11.5 H Eosinophils % 5.3 Basophils % 0.6 Nucleated Red Blood Cells % 0.0 Neutrophils # 4.8 Lymphocytes # 1.5 Monocytes # 0.9 Eosinophils # 0.4 Basophils # 0.1 Nucleated Red Blood Cells # 0.0 Medications Medications Current Medications Enoxaparin Sodium (Lovenox) 40 mg DAILY SC ; Start 11/17/16 at 09:00; Status Future Hold Alprazolam (Xanax) 0.5 mg Q8H PRN GTB ANXIETY Last administered on 11/18/16 01 :55; Admin Dose 0.5 MG; Start 11/17/16 at 03:00 Apixaban (Eliquis) 10 mg BID GTB Last administered on 11/20/16 09:09; Admin Dose 10 MG; Start 11/17/16 at 09:00 Aspirin (Aspirin) 81 mg DAILY GTB Last administered on 11/20/16 09:09; Admin Dose 81 MG; Start 11/17/16 at 09:00 Atorvastatin Calcium (Lipitor) 20 mg QHS GTB Last administered on 11/19/16 20: 49; Admin Dose 20 MG; Start 11/17/16 at 21:00 Bisacodyl (Dulcolax Supp) 10 mg DAILY MD ; Start 11/17/16 at 09:00 Potassium Chloride (Potassium Chloride Pwd/Soln) 20 meq DAILY GTB Last administered on 11/20/16 09:10; Admin Dose 20 MEQ; Start 11/17/16 at 09:00 Senna (Senokot) 1 tab DAILY PRN GTB CONSTIPATION; Start 11/17/16 at 03:00 Eye Lubricant (Artificial Tears Oph) 1 drop TID PRN BOTH EYES DRY EYES; Start 11/17/16 at 03:00 Miscellaneous Information (Pending [facility] Order For Wound Care) This patient ames... PRN PRN XX WOUND CARE; Start 11/17/16 at 04:30 Morphine Sulfate (morphine) 2 mg Q2H PRN IV pain Last administered on 12:23; Admin Dose 2 MG; Start 11/17/16 at 10:30 Ondansetron HCl (Zofran Inj) 4 mg Q4H PRN IV NAUSEA AND/OR VOMITING Last administered on 11/18/16 14:41; Admin Dose 4 MG; Start 11/17/16 at 11:00 Lisinopril (Zestril) 5 mg DAILY PO Last administered on 11/20/16 09:10; Admin Dose 5 MG; Start 11/18/16 at 10:00 KEE ESPINOZA Nov 20, 2016 14:57
[2016-11-20] MEDS ORDERED: VANCOMYCIN IV PER PHARMACY XX SCH (15:00)
[2016-11-20] MEDS: CEFEPIME 1GM/50 ML (PMX) 50 ML IVPB SCH ×2 (16:05→21:11)
--- NOTE | 2016-11-20 16:47 | PN ---
Date/Time of Note Date/Time of Note DATE: 11/20/16 TIME: 16:41 Assessment/Plan VTE Prophylaxis VTE Prophylaxis Intervention: other Lines/Catheters IV Catheter Type (from Nrsg): Saline Lock Assessment/Plan Chief Complaint/Hosp Course 1. 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 Chest pain secondary to pneumonia and pleural effusions Echo shows an EF of 50% Continue diuresis Started on antibiotics Troponin negative, EKG without signs of ischemia 3. Deafness 4. Anemia likely of chronic disease 5. History of upper extremity DVT Change Eliquis to 5 twice daily Prophylaxis: Eliquis Discharge planning: Patient does not want return to a nursing home facility and would like to go home, have spoken to case management arrangements for patient to return home Problems: Subjective 24 Hr Interval Summary Constitutional: no complaints Exam/Review of Systems Vital Signs Vitals Vital Signs Date Time Temp Pulse Resp B/P Pulse Ox O2 Delivery O2 Flow Rate FiO2 11/20/16 15:36 98.1 82 18 88/52 98 11/20/16 11:10 35 11/19/16 06:30 Mechanical Ventilator Intake and Output 11/19/16 11/19/16 11/20/16 15:00 23:00 07:00 Intake Total 500 ml 620 ml Output Total 2100 ml 1000 ml Balance -1600 ml -380 ml Exam Constitutional: alert Respiratory: clear to auscultation Cardiovascular: regular rate and rhythm Gastrointestinal: soft, No distended Musculoskeletal: nl extremities to inspection Results Result Diagram: 11/20/16 0750 11/20/16 0749 Results 24 hrs Laboratory Tests Test 11/20/16 07:49 11/20/16 07:50 Sodium Level 136 Potassium Level 3.7 Chloride Level 104 Carbon Dioxide Level 30 Anion Gap 6 L Blood Urea Nitrogen 9 Creatinine 0.30 L Glucose Level 91 Calcium Level 7.4 L Magnesium Level 1.6 L White Blood Count 7.7 Red Blood Count 3.02 L Hemoglobin 8.6 L Hematocrit 28.0 L Mean Corpuscular Volume 92.7 Mean Corpuscular Hemoglobin 28.5 L Mean Corpuscular Hemoglobin Concent 30.7 L Red Cell Distribution Width 15.9 H Platelet Count 412 Mean Platelet Volume 10.1 Neutrophils % 62.6 Lymphocytes % 19.5 Monocytes % 11.5 H Eosinophils % 5.3 Basophils % 0.6 Nucleated Red Blood Cells % 0.0 Neutrophils # 4.8 Lymphocytes # 1.5 Monocytes # 0.9 Eosinophils # 0.4 Basophils # 0.1 Nucleated Red Blood Cells # 0.0 Medications Medications Current Medications Enoxaparin Sodium (Lovenox) 40 mg DAILY SC ; Start 11/17/16 at 09:00; Status Future Hold Alprazolam (Xanax) 0.5 mg Q8H PRN GTB ANXIETY Last administered on 11/18/16 01 :55; Admin Dose 0.5 MG; Start 11/17/16 at 03:00 Apixaban (Eliquis) 10 mg BID GTB Last administered on 11/20/16 09:09; Admin Dose 10 MG; Start 11/17/16 at 09:00 Aspirin (Aspirin) 81 mg DAILY GTB Last administered on 11/20/16 09:09; Admin Dose 81 MG; Start 11/17/16 at 09:00 Atorvastatin Calcium (Lipitor) 20 mg QHS GTB Last administered on 11/19/16 20: 49; Admin Dose 20 MG; Start 11/17/16 at 21:00 Bisacodyl (Dulcolax Supp) 10 mg DAILY [place] ; Start 11/17/16 at 09:00 Potassium Chloride (Potassium Chloride Pwd/Soln) 20 meq DAILY GTB Last administered on 11/20/16 09:10; Admin Dose 20 MEQ; Start 11/17/16 at 09:00 Senna (Senokot) 1 tab DAILY PRN GTB CONSTIPATION; Start 11/17/16 at 03:00 Eye Lubricant (Artificial Tears Oph) 1 drop TID PRN BOTH EYES DRY EYES; Start 11/17/16 at 03:00 Miscellaneous Information (Pending [facility] Order For Wound Care) This patient ames... PRN PRN XX WOUND CARE; Start 11/17/16 at 04:30 Morphine Sulfate (morphine) 2 mg Q2H PRN IV pain Last administered on 16:06; Admin Dose 2 MG; Start 11/17/16 at 10:30 Ondansetron HCl (Zofran Inj) 4 mg Q4H PRN IV NAUSEA AND/OR VOMITING Last administered on 11/18/16 14:41; Admin Dose 4 MG; Start 11/17/16 at 11:00 Lisinopril 5 mg 5 mg DAILY PO Last administered on 11/20/16 09:10; Admin Dose 5 MG; Start 11/18/16 at 10:00 Cefepime HCl 50 ml @ 100 mls/hr Q12 IVPB Last administered on 11/20/16 16:05 ; Admin Dose 100 MLS/HR; Start 11/20/16 at 15:00 Vancomycin HCl 1.25 gm/Sodium Chloride 250 ml @ 83.333 mls/ hr ONCE@17 IVPB ; Start 11/20/16 at 17:00; Stop 11/20/16 at 21:00 Vancomycin HCl/ Sodium Chloride (Vancocin/NS) 150 ml @ 75 mls/hr Q12H IVPB ; Start 11/21/16 at 05:00 PATRICK NEWMAN Nov 20, 2016 16:47
[2016-11-20] MEDS ORDERED: VANCOMYCIN 1.25 GM in SOD CHLORIDE 0.9% 250 ML IVPB SCH (17:00)
--- NOTE | 2016-11-20 17:06 | RADRPT ---
PROCEDURE: XR Chest. CLINICAL INDICATION: pneumonia TECHNIQUE: AP view of the chest were obtained. COMPARISON: None. FINDINGS: Stable tracheostomy tube. Bilateral effusions are noted. There is cardiomegaly and calcified atheros clerosis of the aortic arch. There are stable bilateral consolidations in the mid and lower lungs. N o evidence of pneumothorax. IMPRESSION: Stable bilateral consolidations in the mid and lower lungs. The bilateral effusions assure stable. Stable tracheostomy tube. RPTAT: GG .Doyle Costello MD, Date Time Electronically viewed and signed by .Doyle Costello MD, on 11/20/2016 17:06 .G/
[2016-11-20] MEDS: SENNA TAB GTB PRN (18:17)
[2016-11-20] MEDS: ATORVASTATIN 20 MG TAB GTB SCH (21:11)
[2016-11-21] VITALS (23 sets, daily range): BP systolic 90–110; BP diastolic 51–69; PULSE 72–90; RESP 17–19
[2016-11-21] MEDS: ALBUTEROL 18 GM INHALER INH SCH ×6 (01:08→20:12)
[2016-11-21] MEDS: IPRATROPIUM (HFA) 12.9 GM INHALER INH SCH ×6 (01:08→20:12)
[2016-11-21] MEDS: morphine 2 MG INJ IV PRN ×7 (01:10→20:45)
[2016-11-21] MEDS: VANCOMYCIN 750 MG in SOD CHLORIDE 0.9% 150 ML IVPB SCH ×2 (05:15→17:51)
[2016-11-21] MEDS: FUROSEMIDE 20 MG INJ IV SCH ×2 (05:20→17:51)
[2016-11-21 11:12] LABS: CALCIUM 7.1 mg/dl (8.4-10.2); CREATININE 0.28 mg/dl (0.44-1.00); MAGNESIUM 1.9 mg/dl (1.7-2.5); POTASSIUM 3.3 mmol/L (3.5-5.1)
[2016-11-21] MEDS: POTASSIUM CHLORIDE 20 MEQ POWDER FOR ORAL SOLN GTB SCH (11:43)
[2016-11-21] MEDS: BISACODYL 10 MG SUPP PR SCH (11:44)
[2016-11-21] MEDS: CEFEPIME 1GM/50 ML (PMX) 50 ML IVPB SCH ×2 (11:44→20:41)
[2016-11-21] MEDS: ASPIRIN 81 MG TAB GTB SCH (11:44)
[2016-11-21] MEDS: APIXABAN 5 MG TABLET GTB SCH ×2 (11:44→20:41)
[2016-11-21] MEDS: LISINOPRIL 5 MG TAB PO SCH (11:48)
--- NOTE | 2016-11-21 13:14 | CONS ---
Date/Time of Note Date/Time of Note DATE: 11/21/16 TIME: 13:12 Assessment/Plan Assessment/Plan Additional Assessment/Plan Assessment and recommendations; 1. Patient admitted for what appears to be severe bilateral pneumonia, however difficult to rule out chronic interstitial lung disease. 2. Chronic respiratory failure due to amyotrophic lateral sclerosis. Continue current treatment. Continue current ventilator settings and antibiotics. Will obtain follow-up chest x-ray in 4 days time. Consultation Date/Type/Reason Admit Date/Time Nov 16, 2016 at 17:39 Initial Consult Date 11/20/16 Type of Consultation: Pulmonary 24 HR Interval Summary Free Text/Dictation Patient's condition remains stable. Remains awake and alert. General exam; elderly woman, on ventilator via tracheostomy, awake, currently in no distress. Exam/Review of Systems Vital Signs Vitals Vital Signs Date Time Temp Pulse Resp B/P Pulse Ox O2 Delivery O2 Flow Rate FiO2 11/21/16 12:50 88 11/21/16 11:51 98.3 18 94/53 98 Mechanical Ventilator 11/21/16 11:44 35 Intake and Output 11/20/16 11/20/16 11/21/16 15:00 23:00 07:00 Intake Total 50 ml 816.66 ml 680 ml Output Total 700 ml 850 ml Balance 50 ml 116.66 ml -170 ml Exam HEENT exam; supple neck, no JVD. No lymphadenopathy. Midline trachea. No thyromegaly. Tracheostomy in place. Patient has fair dentition. Chest exam; scattered crackles bilaterally. S1-S2 audible, no murmurs. Regular rhythm. Abdomen exam; soft, nontender. No organomegaly. G-tube in place. Bowel sounds audible. Extremity exam; 2+ pitting edema in lower extremities bilaterally. RAIL SPECIALIST exam; patient is awake and able to move left upper extremity to some extent. Results Result Diagram: 11/20/16 0750 11/21/16 1032 Results 24 hrs Laboratory Tests Test 11/21/16 10:32 Sodium Level 136 Potassium Level 3.3 L Chloride Level 105 Carbon Dioxide Level 26 Anion Gap 8 Blood Urea Nitrogen 8 Creatinine 0.28 L Glucose Level 74 Calcium Level 7.1 L Magnesium Level 1.9 Medications Medications Current Medications Alprazolam (Xanax) 0.5 mg Q8H PRN GTB ANXIETY Last administered on 11/18/16t 01 :55; Admin Dose 0.5 MG; Start 11/17/16 at 03:00 Aspirin (Aspirin) 81 mg DAILY GTB Last administered on 11/21/16 11:44; Admin Dose 81 MG; Start 11/17/16 at 09:00 Atorvastatin Calcium (Lipitor) 20 mg QHS GTB Last administered on 11/20/16 21 :11; Admin Dose 20 MG; Start 11/17/16 at 21:00 Bisacodyl (Dulcolax Supp) 10 mg DAILY [place] ; Start 11/17/16 at 09:00 Potassium Chloride (Potassium Chloride Pwd/Soln) 20 meq DAILY GTB Last administered on 11/21/16 11:43; Admin Dose 20 MEQ; Start 11/17/16 at 09:00 Senna (Senokot) 1 tab DAILY PRN GTB CONSTIPATION Last administered on 18:17; Admin Dose 1 TAB; Start 11/17/16 at 03:00 Eye Lubricant (Artificial Tears Oph) 1 drop TID PRN BOTH EYES DRY EYES; Start 11/17/16 at 03:00 Miscellaneous Information (Pending [facility] Order For Wound Care) This patient ames... PRN PRN XX WOUND CARE; Start 11/17/16 at 04:30 Morphine Sulfate (morphine) 2 mg Q2H PRN IV pain Last administered on 11:49; Admin Dose 2 MG; Start 11/17/16 at 10:30 Ondansetron HCl (Zofran Inj) 4 mg Q4H PRN IV NAUSEA AND/OR VOMITING Last administered on 11/18/16 14:41; Admin Dose 4 MG; Start 11/17/16 at 11:00 Lisinopril 5 mg 5 mg DAILY PO Last administered on 11/20/16 09:10; Admin Dose 5 MG; Start 11/18/16 at 10:00 Cefepime HCl 50 ml @ 100 mls/hr Q12 IVPB Last administered on 11/21/16 11:44 ; Admin Dose 100 MLS/HR; Start 11/20/16 at 15:00 Vancomycin HCl/ Sodium Chloride (Vancocin/NS) 150 ml @ 75 mls/hr Q12H IVPB Last administered on 11/21/16 05:15; Admin Dose 75 MLS/HR; Start 11/21/16 at 05:00 Apixaban (Eliquis) 5 mg BID GTB Last administered on 11/21/16t 11:44; Admin Dose 5 MG; Start 11/20/16 at 21:00 Miscellaneous Information (*Rx Drug Level Order Reminder*) VANCOMYCIN TROUGH AT 0400 ONCE ONCE XX ; Start 11/22/16 at 04:00; Stop 11/22/16 at 04:01 KEE ESPINOZA Nov 21, 2016 13:14
[2016-11-21] MEDS ORDERED: POTASSIUM CHLORIDE 250 ML IVPB ONE (14:00)
--- NOTE | 2016-11-21 18:37 | PN ---
Date/Time of Note Date/Time of Note DATE: 11/21/16 TIME: 18:33 Assessment/Plan VTE Prophylaxis VTE Prophylaxis Intervention: other Lines/Catheters IV Catheter Type (from Nrsg): Saline Lock Assessment/Plan Chief Complaint/Hosp Course 1. 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 Chest pain secondary to pneumonia and pleural effusions Echo shows an EF of 50% Continue diuresis Started on antibiotics Troponin negative, EKG without signs of ischemia Pain control 3. Deafness 4. Anemia likely of chronic disease 5. History of upper extremity DVT Change Eliquis to 5 twice daily Prophylaxis: Eliquis Discharge planning: Patient does not want return to a fdc facility and would like to go home, plan is for patient to go to a nursing facility for a short period of time until arrangements can be made for patient to return home Problems: Subjective 24 Hr Interval Summary Constitutional: no complaints Exam/Review of Systems Vital Signs Vitals Vital Signs Date Time Temp Pulse Resp B/P Pulse Ox O2 Delivery O2 Flow Rate FiO2 11/21/16 17:22 89 18 98 35 11/21/16 15:17 98.2 110/69 11/21/16 11:51 Mechanical Ventilator Intake and Output 11/20/16 11/20/16 11/21/16 15:00 23:00 07:00 Intake Total 50 ml 816.66 ml 680 ml Output Total 700 ml 850 ml Balance 50 ml 116.66 ml -170 ml Exam Constitutional: alert Respiratory: clear to auscultation Cardiovascular: regular rate and rhythm Gastrointestinal: soft, No distended Musculoskeletal: nl extremities to inspection Results Result Diagram: 11/20/16 0750 11/21/16 1032 Results 24 hrs Laboratory Tests Test 11/21/16 10:32 Sodium Level 136 Potassium Level 3.3 L Chloride Level 105 Carbon Dioxide Level 26 Anion Gap 8 Blood Urea Nitrogen 8 Creatinine 0.28 L Glucose Level 74 Calcium Level 7.1 L Magnesium Level 1.9 Medications Medications Current Medications Alprazolam (Xanax) 0.5 mg Q8H PRN GTB ANXIETY Last administered on 11/18/16t 01 :55; Admin Dose 0.5 MG; Start 11/17/16 at 03:00 Aspirin (Aspirin) 81 mg DAILY GTB Last administered on 11/21/16 11:44; Admin Dose 81 MG; Start 11/17/16 at 09:00 Atorvastatin Calcium (Lipitor) 20 mg QHS GTB Last administered on 11/20/16 21 :11; Admin Dose 20 MG; Start 11/17/16 at 21:00 Bisacodyl (Dulcolax Supp) 10 mg DAILY [place] ; Start 11/17/16 at 09:00 Potassium Chloride (Potassium Chloride Pwd/Soln) 20 meq DAILY GTB Last administered on 11/21/16 11:43; Admin Dose 20 MEQ; Start 11/17/16 at 09:00 Senna (Senokot) 1 tab DAILY PRN GTB CONSTIPATION Last administered on 18:17; Admin Dose 1 TAB; Start 11/17/16 at 03:00 Eye Lubricant (Artificial Tears Oph) 1 drop TID PRN BOTH EYES DRY EYES; Start 11/17/16 at 03:00 Miscellaneous Information (Pending [facility] Order For Wound Care) This patient ames... PRN PRN XX WOUND CARE; Start 11/17/16 at 04:30 Morphine Sulfate (morphine) 2 mg Q2H PRN IV pain Last administered on 18:20; Admin Dose 2 MG; Start 11/17/16 at 10:30 Ondansetron HCl (Zofran Inj) 4 mg Q4H PRN IV NAUSEA AND/OR VOMITING Last administered on 11/18/16 14:41; Admin Dose 4 MG; Start 11/17/16 at 11:00 Lisinopril 5 mg 5 mg DAILY PO Last administered on 11/20/16 09:10; Admin Dose 5 MG; Start 11/18/16 at 10:00 Cefepime HCl 50 ml @ 100 mls/hr Q12 IVPB Last administered on 11/21/16 11:44 ; Admin Dose 100 MLS/HR; Start 11/20/16 at 15:00 Vancomycin HCl/ Sodium Chloride (Vancocin/NS) 150 ml @ 75 mls/hr Q12H IVPB Last administered on 11/21/16 17:51; Admin Dose 75 MLS/HR; Start 11/21/16 at 05:00 Apixaban (Eliquis) 5 mg BID GTB Last administered on 11/21/16t 11:44; Admin Dose 5 MG; Start 11/20/16 at 21:00 Miscellaneous Information (*Rx Drug Level Order Reminder*) VANCOMYCIN TROUGH AT 0400 ONCE ONCE XX ; Start 11/22/16 at 04:00; Stop 11/22/16 at 04:01 PATRICK NEWMAN Nov 21, 2016 18:37
[2016-11-21] MEDS: ATORVASTATIN 20 MG TAB GTB SCH (20:41)
[2016-11-22] VITALS (23 sets, daily range): BP systolic 87–112; BP diastolic 50–57; PULSE 75–94; RESP 17–20
[2016-11-22] MEDS: IPRATROPIUM (HFA) 12.9 GM INHALER INH SCH ×6 (00:16→21:17)
[2016-11-22] MEDS: ALBUTEROL 18 GM INHALER INH SCH ×6 (00:16→21:18)
[2016-11-22] MEDS: morphine 2 MG INJ IV PRN ×5 (00:40→18:21)
[2016-11-22 03:58] LABS: BASOPHIL # 0.1 10^3/ul (0.0-0.1); BASOPHILS % 0.7 % (0.0-2.0); EOSINOPHILS # 0.4 10^3/ul (0.0-0.5); HEMOGLOBIN 8.3 g/dl (12.0-16.0); LYMPHOCYTES # 1.4 10^3/ul (0.8-2.9); LYMPHOCYTES % 15.8 % (15.0-51.0); MEAN CORPUSCULAR HEMOGLOBIN 28.1 pg (29.0-33.0); MEAN CORPUSCULAR HGB CONC 30.7 g/dl (32.0-37.0); MEAN CORPUSCULAR VOLUME 91.5 fl (82.0-101.0); MONOCYTE # 0.9 10^3/ul (0.3-0.9); MONOCYTES % 10.2 % (0.0-11.0); NEUTROPHIL # 5.9 10^3/ul (1.6-7.5); NEUTROPHILS % 67.7 % (39.0-77.0); PLATELET COUNT 490 10^3/UL (140-415); RED BLOOD COUNT 2.95 10^6/ul (4.20-5.40); RED CELL DISTRIBUTION WIDTH 16.2 % (11.5-14.5); WHITE BLOOD COUNT 8.8 10^3/ul (4.8-10.8)
[2016-11-22 04:19] LABS: CALCIUM 7.2 mg/dl (8.4-10.2); CREATININE 0.3 mg/dl (0.44-1.00); POTASSIUM 3.8 mmol/L (3.5-5.1)
[2016-11-22] MEDS: FUROSEMIDE 20 MG INJ IV SCH ×2 (05:39→17:16)
[2016-11-22] MEDS: VANCOMYCIN 750 MG in SOD CHLORIDE 0.9% 150 ML IVPB SCH ×2 (05:39→17:04)
[2016-11-22] MEDS: LISINOPRIL 5 MG TAB PO SCH (09:00)
[2016-11-22] MEDS: BISACODYL 10 MG SUPP PR SCH (09:00)
[2016-11-22] MEDS: ASPIRIN 81 MG TAB GTB SCH (09:53)
[2016-11-22] MEDS: POTASSIUM CHLORIDE 20 MEQ POWDER FOR ORAL SOLN GTB SCH (09:53)
[2016-11-22] MEDS: CEFEPIME 1GM/50 ML (PMX) 50 ML IVPB SCH ×2 (09:55→20:19)
[2016-11-22] MEDS: APIXABAN 5 MG TABLET GTB SCH ×2 (09:55→20:18)
--- NOTE | 2016-11-22 10:13 | CONS ---
Date/Time of Note Date/Time of Note DATE: 11/22/16 TIME: 10:13 Consultation Date/Type/Reason Admit Date/Time Nov 16, 2016 at 17:39 Initial Consult Date 11/20/16 Type of Consultation: Pulmonary 24 HR Interval Summary Free Text/Dictation dictated 11-22-16 Exam/Review of Systems Vital Signs Vitals Vital Signs Date Time Temp Pulse Resp B/P Pulse Ox O2 Delivery O2 Flow Rate FiO2 11/22/16 08:16 98.3 99 20 87/52 99 88/50 11/22/16 07:20 35 11/21/16 11:51 Mechanical Ventilator Intake and Output 11/21/16 11/21/16 11/22/16 15:00 23:00 07:00 Intake Total 670 ml 480 ml Output Total 800 ml 400 ml Balance -130 ml 80 ml Results Result Diagram: 11/22/16 0350 11/22/16 0350 Results 24 hrs Laboratory Tests Test 11/21/16 10:32 11/22/16 03:50 Sodium Level 136 135 Potassium Level 3.3 L 3.8 Chloride Level 105 106 Carbon Dioxide Level 26 27 Anion Gap 8 6 L Blood Urea Nitrogen 8 10 Creatinine 0.28 L 0.30 L Glucose Level 74 85 Calcium Level 7.1 L 7.2 L Magnesium Level 1.9 White Blood Count 8.8 Red Blood Count 2.95 L Hemoglobin 8.3 L Hematocrit 27.0 L Mean Corpuscular Volume 91.5 Mean Corpuscular Hemoglobin 28.1 L Mean Corpuscular Hemoglobin Concent 30.7 L Red Cell Distribution Width 16.2 H Platelet Count 490 H Mean Platelet Volume 9.0 Neutrophils % 67.7 Lymphocytes % 15.8 Monocytes % 10.2 Eosinophils % 5.0 Basophils % 0.7 Nucleated Red Blood Cells % 0.0 Neutrophils # 5.9 Lymphocytes # 1.4 Monocytes # 0.9 Eosinophils # 0.4 Basophils # 0.1 Nucleated Red Blood Cells # 0.0 Vancomycin Level Trough 12.1 Medications Medications Current Medications Alprazolam (Xanax) 0.5 mg Q8H PRN GTB ANXIETY Last administered on 11/18/16 01 :55; Admin Dose 0.5 MG; Start 11/17/16 at 03:00 Aspirin (Aspirin) 81 mg DAILY GTB Last administered on 11/21/16 11:44; Admin Dose 81 MG; Start 11/17/16 at 09:00 Atorvastatin Calcium (Lipitor) 20 mg QHS GTB Last administered on 11/21/16 20 :41; Admin Dose 20 MG; Start 11/17/16 at 21:00 Bisacodyl (Dulcolax Supp) 10 mg DAILY [place] ; Start 11/17/16 at 09:00 Potassium Chloride (Potassium Chloride Pwd/Soln) 20 meq DAILY GTB Last administered on 11/21/16 11:43; Admin Dose 20 MEQ; Start 11/17/16 at 09:00 Senna (Senokot) 1 tab DAILY PRN GTB CONSTIPATION Last administered on 18:17; Admin Dose 1 TAB; Start 11/17/16 at 03:00 Eye Lubricant (Artificial Tears Oph) 1 drop TID PRN BOTH EYES DRY EYES; Start 11/17/16 at 03:00 Miscellaneous Information (Pending [facility] Order For Wound Care) This patient ames... PRN PRN XX WOUND CARE; Start 11/17/16 at 04:30 Morphine Sulfate (morphine) 2 mg Q2H PRN IV pain Last administered on 08:11; Admin Dose 2 MG; Start 11/17/16 at 10:30 Ondansetron HCl (Zofran Inj) 4 mg Q4H PRN IV NAUSEA AND/OR VOMITING Last administered on 11/18/16 14:41; Admin Dose 4 MG; Start 11/17/16 at 11:00 Lisinopril 5 mg 5 mg DAILY PO Last administered on 11/20/16 09:10; Admin Dose 5 MG; Start 11/18/16 at 10:00 Cefepime HCl 50 ml @ 100 mls/hr Q12 IVPB Last administered on 11/21/16 20:41 ; Admin Dose 100 MLS/HR; Start 11/20/16 at 15:00 Vancomycin HCl/ Sodium Chloride (Vancocin/NS) 150 ml @ 75 mls/hr Q12H IVPB Last administered on 11/22/16 05:39; Admin Dose 75 MLS/HR; Start 11/21/16 at 05:00 Apixaban (Eliquis) 5 mg BID GTB Last administered on 11/21/16 20:41; Admin Dose 5 MG; Start 11/20/16 at 21:00 Acetaminophen/ Hydrocodone Bitart ([place] (5/325)) 1 tab Q4H PRN GTB PAIN; Start 11/21/16 at 19:00 KEE ESPINOZA Nov 22, 2016 10:13
[2016-11-22] MEDS: HYDROCODONE/APAP (5/325) TAB GTB PRN ×2 (11:07→20:18)
--- NOTE | 2016-11-22 11:46 | PN ---
DATE: 11/22/2016 Ms. Mullen's condition is stable. The patient remains awake, alert, remains chronically ventilator dependent, has remained hemodynamically stable. PHYSICAL EXAMINATION: GENERAL: Elderly female on ventilator via tracheostomy, currently in no distress. VITAL SIGNS: Temperature 98 degrees Fahrenheit, respiratory rate is 18 per minute, heart rate 88 per minute, blood pressure is 88/50, O2 sat 99% on current ventilator settings which are assist control of 18, tidal volume 450, PEEP of 35 % FIO2. HEENT: Supple neck, no JVD, no lymphadenopathy, midline trachea, no thyromegaly. Pharynx is clear. Patient has a tracheostomy in place. Patient has fair dentition. CHEST: Diminished but clear breath sounds. HEART: S1, S2 audible. No murmurs, regular rhythm. ABDOMEN: Soft. G-tube in place. No organomegaly. Bowel sounds audible. EXTREMITIES: Trace lower extremity edema. CENTRAL NERVOUS SYSTEM: Patient is awake, able to move left upper extremity to some extent. LABORATORY DATA: Today, white count is 8.8, hemoglobin 8.3, platelet count of 490. Sodium 135, potassium 3.8, chloride 106, bicarb 27, glucose 85. MEDICATIONS: Reviewed. The patient is currently on intravenous vancomycin and cefepime. Other medications reviewed as well. ASSESSMENT AND PLAN: 1. Patient admitted with bilateral pneumonia. 2. History of amyotrophic lateral sclerosis. 3. Possibly underlying pulmonary fibrosis. RECOMMENDATIONS: Continue current treatment. Obtain followup chest x-ray in 48 hours. Dictated By: KEE PATEL/ABISAI Conf#: [id number] DID#: [id number] MTDD
[2016-11-22] MEDS ORDERED: APIX5TAB GTB (14:47)
--- NOTE | 2016-11-22 14:56 | DS ---
Date/Time of Note Date/Time of Note DATE: 11/22/16 TIME: 14:51 Discharge Summary Admission/Discharge Info Admit Date/Time Nov 16, 2016 at 17:39 Discharge Date/Time November 22, 2016 Discharge Diagnosis 1. 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 Chest pain secondary to pneumonia and pleural effusions pain control with [place] Echo shows an EF of 50% Continue diuresis Troponin negative, EKG without signs of ischemia 3. Deafness 4. Anemia likely of chronic disease 5. History of upper extremity DVT Changed Eliquis to 5 twice daily Patient Condition: Fair Hospital Course Patient is a 61 yo female with a h/o systolic CHF with an EF of 35%, upper extremity DVT on Eliquis, ALS as well as deafness presenting with report of chest pain. ACS ruled out, patient was seen by pulmonology and was continued on ventilator. Patient was given a course of antibiotics for possible pneumonia. Patient's pain was controlled with morphine and [place]. It appeared the patient had anxiety at the previous shelter and chest pain was likely secondary to anxiety. After discussion with the family it was decided that patient will go to another nursing facility and ultimately will return home once arrangements are made by family to be able to care for at home with nursing staff. The day of discharge patient's vitals, labs and physical exam stable she had no further acute issues. Home Meds Active Scripts Apixaban* (Eliquis*) 5 Mg Tablet, 5 MG GTB BID for 30 Days, TAB Prov:PATRICK NEWMAN 11/22/16 Reported Medications Eye Lubricant Combination No.1 (Fresh[place]) 15 Ml Drops, 1 DRP BOTH EYES TID Y for DRY EYES, BOTTLE 11/16/16 Potassium Chloride* (K-Dur*) 20 Meq Tab.prt.sr, 20 MEQ PO DAILY, TAB.SA 11/16/16 Propranolol Hcl* (Propranolol Hcl*) 10 Mg Tablet, 10 MG NG-TUBE Q6, TAB 11/16/16 Sennosides* (Senna Lax*) 8.6 Mg Tablet, 1 TAB NG-TUBE DAILY Y for CONSTIPATION, TAB 11/16/16 Bisacodyl* (Bisacodyl*) 10 Mg Supp, 10 MG MI DAILY, SUPP 11/16/16 Atorvastatin Calcium* (Atorvastatin Calcium*) 20 Mg Tablet, 20 MG NG-TUBE QHS, # 30 TAB 11/16/16 Aspirin (Low Dose Aspirin) 81 Mg Tablet.dr, 81 MG PO DAILY, #30 TAB 11/16/16 Alprazolam* (Xanax*) 0.5 Mg Tab, 0.5 MG PO Q8H Y for ANXIETY, TAB 11/16/16 Discontinued Reported Medications Apixaban* (Eliquis*) 5 Mg Tablet, 10 MG PO BID, TAB 11/16/16 Follow-up Plan Follow-up with physicians at custodial facility Primary Care Provider Care Physician No Primary Time spent on discharge: > 30 minutes PATRICK NEWMAN Nov 22, 2016 14:56
[2016-11-22] MEDS ORDERED: HYDR-3498 GTB (14:57)
[2016-11-22] MEDS ORDERED: VITAMIN A & D 5 GM OINT PACKET TOP ONE (17:13)
[2016-11-22] MEDS: ATORVASTATIN 20 MG TAB GTB SCH (20:18)
[2016-11-23] VITALS (23 sets, daily range): BP systolic 84–105; BP diastolic 49–63; PULSE 75–98; RESP 18–21
[2016-11-23] MEDS: morphine 2 MG INJ IV PRN ×7 (00:09→22:54)
[2016-11-23] MEDS: IPRATROPIUM (HFA) 12.9 GM INHALER INH SCH ×6 (01:23→21:03)
[2016-11-23] MEDS: ALBUTEROL 18 GM INHALER INH SCH ×6 (01:23→21:03)
[2016-11-23] MEDS: HYDROCODONE/APAP (5/325) TAB GTB PRN ×3 (04:16→14:00)
[2016-11-23] MEDS: VANCOMYCIN 750 MG in SOD CHLORIDE 0.9% 150 ML IVPB SCH (05:54)
[2016-11-23] MEDS: FUROSEMIDE 20 MG INJ IV SCH ×2 (05:55→17:35)
[2016-11-23] MEDS: APIXABAN 5 MG TABLET GTB SCH ×2 (08:22→20:16)
[2016-11-23] MEDS: ASPIRIN 81 MG TAB GTB SCH (08:22)
[2016-11-23] MEDS: LISINOPRIL 5 MG TAB PO SCH (08:24)
[2016-11-23] MEDS: CEFEPIME 1GM/50 ML (PMX) 50 ML IVPB SCH (08:24)
[2016-11-23] MEDS: POTASSIUM CHLORIDE 20 MEQ POWDER FOR ORAL SOLN GTB SCH (08:24)
[2016-11-23] MEDS: BISACODYL 10 MG SUPP PR SCH (08:25)
--- NOTE | 2016-11-23 13:12 | CONS ---
Date/Time of Note Date/Time of Note DATE: 11/23/16 TIME: 13:10 Assessment/Plan Assessment/Plan Additional Assessment/Plan Ventilator setting; AC of 18, tidal volume 450, PEEP of 5, 35% FiO2. Assessment and recommendations; 1. Patient with history of amyotrophic lateral sclerosis admitted with what appears to be severe bilateral pneumonia, however difficult to rule out background of pulmonary fibrosis. 2. Functional quadriplegia. 3. History of recent pneumonia. Continue current supportive care. Obtain follow-up chest x-ray in 24 hours. Consultation Date/Type/Reason Admit Date/Time Nov 16, 2016 at 17:39 Initial Consult Date 11/20/16 Type of Consultation: Pulmonary 24 HR Interval Summary Free Text/Dictation Patient's condition remains stable. Remains awake alert. Has remained hemodynamically stable. General exam; elderly woman, on ventilator via tracheostomy. Currently in no distress. Awake and alert. Exam/Review of Systems Vital Signs Vitals Vital Signs Date Time Temp Pulse Resp B/P Pulse Ox O2 Delivery O2 Flow Rate FiO2 11/23/16 12:18 75 11/23/16 11:15 18 97 35 11/23/16 07:50 98.2 86/49 11/21/16 11:51 Mechanical Ventilator Intake and Output 11/22/16 11/22/16 11/23/16 15:00 23:00 07:00 Intake Total 50 ml 785 ml 510 ml Output Total 300 ml 300 ml Balance 50 ml 485 ml 210 ml Exam HEENT exam; supple neck, no JVD. No lymphadenopathy. Midline trachea. No thyromegaly. Tracheostomy in place. Patient has fair dentition. Chest exam; scattered crackles bilaterally. S1-S2 audible, no murmurs. Regular rhythm. Abdomen exam; soft, nondistended. G-tube in place. Bowel sounds audible. Extremity exam; no peripheral edema. H[employer] RESOURCE ADVISER exam; patient is able to move left upper extremity to very minimal extent. Results Result Diagram: 11/22/16 0350 11/22/16 0350 Medications Medications Current Medications Alprazolam (Xanax) 0.5 mg Q8H PRN GTB ANXIETY Last administered on 11/18/16 01 :55; Admin Dose 0.5 MG; Start 11/17/16 at 03:00 Aspirin (Aspirin) 81 mg DAILY GTB Last administered on 11/23/16 08:22; Admin Dose 81 MG; Start 11/17/16 at 09:00 Atorvastatin Calcium (Lipitor) 20 mg QHS GTB Last administered on 11/22/16 20 :18; Admin Dose 20 MG; Start 11/17/16 at 21:00 Bisacodyl (Dulcolax Supp) 10 mg DAILY [place] ; Start 11/17/16 at 09:00 Potassium Chloride (Potassium Chloride Pwd/Soln) 20 meq DAILY GTB Last administered on 11/23/16 08:24; Admin Dose 20 MEQ; Start 11/17/16 at 09:00 Senna (Senokot) 1 tab DAILY PRN GTB CONSTIPATION Last administered on 18:17; Admin Dose 1 TAB; Start 11/17/16 at 03:00 Eye Lubricant (Artificial Tears Oph) 1 drop TID PRN BOTH EYES DRY EYES; Start 11/17/16 at 03:00 Miscellaneous Information (Pending [facility] Order For Wound Care) This patient ames... PRN PRN XX WOUND CARE; Start 11/17/16 at 04:30 Morphine Sulfate (morphine) 2 mg Q2H PRN IV pain Last administered on 11:09; Admin Dose 2 MG; Start 11/17/16 at 10:30 Ondansetron HCl (Zofran Inj) 4 mg Q4H PRN IV NAUSEA AND/OR VOMITING Last administered on 11/18/16 14:41; Admin Dose 4 MG; Start 11/17/16 at 11:00 Lisinopril 5 mg 5 mg DAILY PO Last administered on 11/20/16 09:10; Admin Dose 5 MG; Start 11/18/16 at 10:00 Cefepime HCl 50 ml @ 100 mls/hr Q12 IVPB Last administered on 11/23/16 08:24 ; Admin Dose 100 MLS/HR; Start 11/20/16 at 15:00 Vancomycin HCl/ Sodium Chloride (Vancocin/NS) 150 ml @ 75 mls/hr Q12H IVPB Last administered on 11/23/16 05:54; Admin Dose 75 MLS/HR; Start 11/21/16 at 05:00 Apixaban (Eliquis) 5 mg BID GTB Last administered on 10/13/17at 08:22; Admin Dose 5 MG; Start 11/20/16 at 21:00 Acetaminophen/ Hydrocodone Bitart ([place] (5/325)) 1 tab Q4H PRN GTB PAIN Last administered on 11/23/16t 08:23; Admin Dose 1 TAB; Start 11/21/16 at 19:00 KEE ESPINOZA Nov 23, 2016 13:12
--- NOTE | 2016-11-23 14:33 | PN ---
Date/Time of Note Date/Time of Note DATE: 11/23/16 TIME: 14:31 Assessment/Plan VTE Prophylaxis VTE Prophylaxis Intervention: other Lines/Catheters IV Catheter Type (from Nrsg): Saline Lock Assessment/Plan Chief Complaint/Hosp Course 1. 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 Chest pain secondary to pneumonia and pleural effusions Echo shows an EF of 50% Continue diuresis Started on antibiotics Troponin negative, EKG without signs of ischemia Pain control 3. Deafness 4. Anemia likely of chronic disease 5. History of upper extremity DVT Change Eliquis to 5 twice daily Prophylaxis: Eliquis Discharge planning: Patient does not want return to a fci facility and would like to go home, plan is for patient to go to a nursing facility for a short period of time until arrangements can be made for patient to return home. Patient had appealed her discharge the patient lost case, plan is for DC to group home tomorrow Problems: Subjective 24 Hr Interval Summary Musculoskeletal: back pain Exam/Review of Systems Vital Signs Vitals Vital Signs Date Time Temp Pulse Resp B/P Pulse Ox O2 Delivery O2 Flow Rate FiO2 11/23/16 13:25 83 21 96 35 11/23/16 07:50 98.2 86/49 11/21/16 11:51 Mechanical Ventilator Intake and Output 11/22/16 11/22/16 11/23/16 15:00 23:00 07:00 Intake Total 50 ml 785 ml 510 ml Output Total 300 ml 300 ml Balance 50 ml 485 ml 210 ml Exam Constitutional: alert Respiratory: clear to auscultation Cardiovascular: regular rate and rhythm Gastrointestinal: soft, No distended Musculoskeletal: nl extremities to inspection Results Result Diagram: 11/22/16 0350 11/22/16 0350 Medications Medications Current Medications Alprazolam (Xanax) 0.5 mg Q8H PRN GTB ANXIETY Last administered on 11/18/16 01 :55; Admin Dose 0.5 MG; Start 11/17/16 at 03:00 Aspirin (Aspirin) 81 mg DAILY GTB Last administered on 11/23/16 08:22; Admin Dose 81 MG; Start 11/17/16 at 09:00 Atorvastatin Calcium (Lipitor) 20 mg QHS GTB Last administered on 11/22/16 20 :18; Admin Dose 20 MG; Start 11/17/16 at 21:00 Bisacodyl (Dulcolax Supp) 10 mg DAILY [place] ; Start 11/17/16 at 09:00 Potassium Chloride (Potassium Chloride Pwd/Soln) 20 meq DAILY GTB Last administered on 11/23/16 08:24; Admin Dose 20 MEQ; Start 11/17/16 at 09:00 Senna (Senokot) 1 tab DAILY PRN GTB CONSTIPATION Last administered on 18:17; Admin Dose 1 TAB; Start 11/17/16 at 03:00 Eye Lubricant (Artificial Tears Oph) 1 drop TID PRN BOTH EYES DRY EYES; Start 11/17/16 at 03:00 Miscellaneous Information (Pending [facility] Order For Wound Care) This patient ames... PRN PRN XX WOUND CARE; Start 11/17/16 at 04:30 Morphine Sulfate (morphine) 2 mg Q2H PRN IV pain Last administered on 11:09; Admin Dose 2 MG; Start 11/17/16 at 10:30 Ondansetron HCl (Zofran Inj) 4 mg Q4H PRN IV NAUSEA AND/OR VOMITING Last administered on 11/18/16 14:41; Admin Dose 4 MG; Start 11/17/16 at 11:00 Lisinopril 5 mg 5 mg DAILY PO Last administered on 11/20/16 09:10; Admin Dose 5 MG; Start 11/18/16 at 10:00 Cefepime HCl 50 ml @ 100 mls/hr Q12 IVPB Last administered on 11/23/16 08:24 ; Admin Dose 100 MLS/HR; Start 11/20/16 at 15:00 Vancomycin HCl/ Sodium Chloride (Vancocin/NS) 150 ml @ 75 mls/hr Q12H IVPB Last administered on 11/23/16 05:54; Admin Dose 75 MLS/HR; Start 11/21/16 at 05:00 Apixaban (Eliquis) 5 mg BID GTB Last administered on 11/23/16 08:22; Admin Dose 5 MG; Start 11/20/16 at 21:00 Acetaminophen/ Hydrocodone Bitart ([place] (5/325)) 1 tab Q4H PRN GTB PAIN Last administered on 11/23/16t 14:00; Admin Dose 1 TAB; Start 11/21/16 at 19:00 PATRICK NEWMAN Nov 23, 2016 14:33
[2016-11-23] MEDS: HYDROCORTISONE 1% 28 GM CR TOP SCH ×2 (17:27→22:53)
[2016-11-23] MEDS: HYDROCODONE/APAP (10/325) TAB GTB PRN (18:42)
[2016-11-23] MEDS: ATORVASTATIN 20 MG TAB GTB SCH (20:16)
[2016-11-24] VITALS (23 sets, daily range): BP systolic 93–103; BP diastolic 52–61; PULSE 75–85; RESP 18–20
[2016-11-24] MEDS: IPRATROPIUM (HFA) 12.9 GM INHALER INH SCH ×5 (00:59→21:00)
[2016-11-24] MEDS: ALBUTEROL 18 GM INHALER INH SCH ×5 (00:59→21:00)
[2016-11-24] MEDS: morphine 2 MG INJ IV PRN ×2 (02:05→04:35)
[2016-11-24] MEDS: FUROSEMIDE 20 MG INJ IV SCH ×2 (06:49→18:43)
[2016-11-24] MEDS: HYDROCODONE/APAP (10/325) TAB GTB PRN ×5 (06:49→23:08)
[2016-11-24] MEDS: LISINOPRIL 5 MG TAB PO SCH (08:59)
[2016-11-24] MEDS: APIXABAN 5 MG TABLET GTB SCH ×2 (09:00→21:09)
[2016-11-24] MEDS: POTASSIUM CHLORIDE 20 MEQ POWDER FOR ORAL SOLN GTB SCH (09:00)
[2016-11-24] MEDS: BISACODYL 10 MG SUPP PR SCH (09:00)
[2016-11-24] MEDS: ASPIRIN 81 MG TAB GTB SCH (09:01)
[2016-11-24] MEDS: HYDROCORTISONE 1% 28 GM CR TOP SCH ×2 (09:02→21:00)
--- NOTE | 2016-11-24 11:31 | CONS ---
Date/Time of Note Date/Time of Note DATE: 11/24/16 TIME: 11:31 Consultation Date/Type/Reason Admit Date/Time Nov 16, 2016 at 17:39 Initial Consult Date 11/20/16 Type of Consultation: Pulmonary 24 HR Interval Summary Free Text/Dictation dictated [id number] Exam/Review of Systems Vital Signs Vitals Vital Signs Date Time Temp Pulse Resp B/P Pulse Ox O2 Delivery O2 Flow Rate FiO2 11/24/16 09:50 85 18 98 11/24/16 08:00 97.8 93/52 11/24/16 07:30 35 11/21/16 11:51 Mechanical Ventilator Intake and Output 11/23/16 11/23/16 11/24/16 15:00 23:00 07:00 Intake Total 610 ml 510 ml Output Total 1000 ml 1200 ml Balance -390 ml -690 ml Results Result Diagram: 11/22/16 0350 11/22/16 0350 Medications Medications Current Medications Alprazolam (Xanax) 0.5 mg Q8H PRN GTB ANXIETY Last administered on 11/18/16 01 :55; Admin Dose 0.5 MG; Start 11/17/16 at 03:00 Aspirin (Aspirin) 81 mg DAILY GTB Last administered on 11/24/16 09:01; Admin Dose 81 MG; Start 11/17/16 at 09:00 Atorvastatin Calcium (Lipitor) 20 mg QHS GTB Last administered on 11/23/16 20 :16; Admin Dose 20 MG; Start 11/17/16 at 21:00 Bisacodyl (Dulcolax Supp) 10 mg DAILY [place] ; Start 11/17/16 at 09:00 Potassium Chloride (Potassium Chloride Pwd/Soln) 20 meq DAILY GTB Last administered on 11/24/16 09:00; Admin Dose 20 MEQ; Start 11/17/16 at 09:00 Senna (Senokot) 1 tab DAILY PRN GTB CONSTIPATION Last administered on 18:17; Admin Dose 1 TAB; Start 11/17/16 at 03:00 Eye Lubricant (Artificial Tears Oph) 1 drop TID PRN BOTH EYES DRY EYES; Start 11/17/16 at 03:00 Miscellaneous Information (Pending [facility] Order For Wound Care) This patient ames... PRN PRN XX WOUND CARE; Start 11/17/16 at 04:30 Morphine Sulfate (morphine) 2 mg Q2H PRN IV pain Last administered on 04:35; Admin Dose 2 MG; Start 11/17/16 at 10:30 Ondansetron HCl (Zofran Inj) 4 mg Q4H PRN IV NAUSEA AND/OR VOMITING Last administered on 11/18/16 14:41; Admin Dose 4 MG; Start 11/17/16 at 11:00 Lisinopril (Zestril) 5 mg DAILY PO Last administered on 11/20/16 09:10; Admin Dose 5 MG; Start 11/18/16 at 10:00 Apixaban (Eliquis) 5 mg BID GTB Last administered on 11/24/16 09:00; Admin Dose 5 MG; Start 11/20/16 at 21:00 Acetaminophen/ Hydrocodone Bitart ([place] (10/325)) 1 tab Q4H PRN GTB PAIN Last administered on 11/24/16 10:51; Admin Dose 1 TAB; Start 11/23/16 at 15:00 Hydrocortisone (Hydrocortisone 1% Cr) 1 applic BID TOP Last administered on 09:02; Admin Dose 1 APPLIC; Start 11/23/16 at 17:00 KEE ESPINOZA Nov 24, 2016 11:31
[2016-11-24 14:11] LABS: CREATININE 0.27 mg/dl (0.44-1.00)
--- NOTE | 2016-11-24 14:11 | PN ---
Date/Time of Note Date/Time of Note DATE: 11/24/16 TIME: 14:07 Assessment/Plan VTE Prophylaxis VTE Prophylaxis Intervention: other Lines/Catheters IV Catheter Type (from Nrsg): Saline Lock Assessment/Plan Chief Complaint/Hosp Course 1. 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 Chest pain secondary to pneumonia and pleural effusions Echo shows an EF of 50% Continue diuresis Chest x-ray today to eval effusions Started on antibiotics Troponin negative, EKG without signs of ischemia Pain control 3. Deafness 4. Anemia likely of chronic disease 5. History of upper extremity DVT Change Eliquis to 5 twice daily 6. Back pain Switch pain medication to Percocet Prophylaxis: Eliquis Discharge planning: Patient does not want return to a intermediate facility and would like to go home, plan is for patient to go to a nursing facility for a short period of time until arrangements can be made for patient to return home. Patient had appealed her discharge the patient lost case, plan is for DC to detention tomorrow Problems: Subjective 24 Hr Interval Summary Musculoskeletal: back pain Exam/Review of Systems Vital Signs Vitals Vital Signs Date Time Temp Pulse Resp B/P Pulse Ox O2 Delivery O2 Flow Rate FiO2 11/24/16 12:50 82 11/24/16 12:00 97.8 20 101/59 100 11/24/16 07:30 35 11/21/16 11:51 Mechanical Ventilator Intake and Output 11/23/16 11/23/16 11/24/16 15:00 23:00 07:00 Intake Total 610 ml 510 ml Output Total 1000 ml 1200 ml Balance -390 ml -690 ml Exam Constitutional: alert Respiratory: clear to auscultation Cardiovascular: regular rate and rhythm Gastrointestinal: soft, No distended Musculoskeletal: nl extremities to inspection Results Result Diagram: 11/22/16 03511/22/16 035 Medications Medications Current Medications Alprazolam (Xanax) 0.5 mg Q8H PRN GTB ANXIETY Last administered on 11/18/16t 01 :55; Admin Dose 0.5 MG; Start 11/17/16 at 03:00 Aspirin (Aspirin) 81 mg DAILY GTB Last administered on 11/24/16 09:01; Admin Dose 81 MG; Start 11/17/16 at 09:00 Atorvastatin Calcium (Lipitor) 20 mg QHS GTB Last administered on 11/23/16 20 :16; Admin Dose 20 MG; Start 11/17/16 at 21:00 Bisacodyl (Dulcolax Supp) 10 mg DAILY [place] ; Start 11/17/16 at 09:00 Potassium Chloride (Potassium Chloride Pwd/Soln) 20 meq DAILY GTB Last administered on 11/24/16 09:00; Admin Dose 20 MEQ; Start 11/17/16 at 09:00 Senna (Senokot) 1 tab DAILY PRN GTB CONSTIPATION Last administered on 18:17; Admin Dose 1 TAB; Start 11/17/16 at 03:00 Eye Lubricant (Artificial Tears Oph) 1 drop TID PRN BOTH EYES DRY EYES; Start 11/17/16 at 03:00 Miscellaneous Information (Pending [facility] Order For Wound Care) This patient ames... PRN PRN XX WOUND CARE; Start 11/17/16 at 04:30 Morphine Sulfate (morphine) 2 mg Q2H PRN IV pain Last administered on 04:35; Admin Dose 2 MG; Start 11/17/16 at 10:30 Ondansetron HCl (Zofran Inj) 4 mg Q4H PRN IV NAUSEA AND/OR VOMITING Last administered on 11/18/16 14:41; Admin Dose 4 MG; Start 11/17/16 at 11:00 Lisinopril (Zestril) 5 mg DAILY PO Last administered on 11/20/16 09:10; Admin Dose 5 MG; Start 11/18/16 at 10:00 Apixaban (Eliquis) 5 mg BID GTB Last administered on 11/24/16 09:00; Admin Dose 5 MG; Start 11/20/16 at 21:00 Acetaminophen/ Hydrocodone Bitart ([place] (10/325)) 1 tab Q4H PRN GTB PAIN Last administered on 11/24/16 10:51; Admin Dose 1 TAB; Start 11/23/16 at 15:00 Hydrocortisone (Hydrocortisone 1% Cr) 1 applic BID TOP Last administered on 10/ 14/17at 09:02; Admin Dose 1 APPLIC; Start 11/23/16 at 17:00 PATRICK NEWMAN Nov 24, 2016 14:11
--- NOTE | 2016-11-24 18:15 | RADRPT ---
PROCEDURE: XR 1 view Chest. CLINICAL INDICATION: Pneumonia. TECHNIQUE: Portable Single frontal view of the chest was obtained. COMPARISON: November 20, 2016. FINDINGS: Tracheostomy tube is again noted. The heart is normal in size. There is moderate pulmonary vascular congestion. There are perihilar co nsolidation/atelectasis as well as bilateral lower lobe consolidations and small bilateral pleural e ffusions. No pneumothorax is identified. The osseous structures are intact. IMPRESSION: No significant change. Moderate pulmonary vascular congestion with small bilateral pleural effusions with associated consol idation/atelectasis. Tracheostomy tube. Further findings as detailed above. RPTAT: HVF .Shashi Reed MD, Date Time Electronically viewed and signed by .Shashi Reed MD, on 11/24/2016 18:15 .F/
[2016-11-24] MEDS: ATORVASTATIN 20 MG TAB GTB SCH (21:09)
[2016-11-25] VITALS (24 sets, daily range): BP systolic 87–110; BP diastolic 53–63; PULSE 76–118; RESP 18–20
[2016-11-25] MEDS: ALBUTEROL 18 GM INHALER INH SCH ×6 (00:42→22:47)
[2016-11-25] MEDS: IPRATROPIUM (HFA) 12.9 GM INHALER INH SCH ×6 (00:42→22:48)
[2016-11-25] MEDS: ALPRAZOLAM 0.5 MG TAB GTB PRN ×2 (03:31→18:27)
[2016-11-25] MEDS: HYDROCODONE/APAP (10/325) TAB GTB PRN ×3 (03:33→21:28)
--- NOTE | 2016-11-25 05:24 | PN ---
DATE: 11/24/2016 The patient's condition is stable, remains awake, has remained hemodynamically stable. No untoward events reported. PHYSICAL EXAMINATION: GENERAL: Elderly female on ventilator via tracheostomy, currently in no distress. VITAL SIGNS: Temperature 98.8 degrees Fahrenheit, respiratory rate is 18 per minute, heart rate 80 per minute, blood pressure 130/70, O2 sat 98% on current ventilator settings, which are AC of 18, ti anika volume 450, PEEP of 5, 35% FIO2. HEENT: Supple neck. No JVD. No lymphadenopathy. Midline trachea. No thyromegaly. Tracheostomy in place. Insertion site is clean. Patient has fair dentition. Pupils are mid size and reactive t o light. CHEST: Diminished but clear breath sounds. HEART: S1, S2 audible. No murmurs. Regular rhythm. ABDOMEN: Soft. G-tube in place. No organomegaly. Bowel sounds audible. EXTREMITIES: Trace edema in lower extremities bilaterally. NEUROLOGIC: The patient is awake and follows commands by head nodding. Able to move left upper ext remity to very minimal extent. MEDICATIONS The patient is off antibiotics now. She received cefepime and vancomycin until the of this sat. 1. Albuterol q.4 hours. 2. Xanax on a p.r.n. basis. 3. Eliquis 5 mg b.i.d. 4. Aspirin 81 mg a day. 5. The patient is on tube feedings. 6. Lipitor 20 mg a day. 7. Lasix 20 mg IV b.i.d. 8. Hydrocodone on a p.r.n. basis. 9. Lisinopril 5 mg daily. ASSESSMENT AND RECOMMENDATIONS: 1. Patient admitted with history of amyotrophic lateral sclerosis with chronic respiratory failure with chest x-ray findings indicative of likely underlying pulmonary fibrosis rather than acute pneum onia. 2. Functional quadriplegia. 3. History of recent pneumonia. Patient was admitted at another facility for a prolonged time. RECOMMENDATIONS: Continue current treatment. Obtain followup chest x-ray. Dictated By: KEE PATEL/ABISAI Conf#: [id number] DID#: [id number]
[2016-11-25] MEDS: FUROSEMIDE 20 MG INJ IV SCH ×2 (05:57→18:07)
[2016-11-25] MEDS: APIXABAN 5 MG TABLET GTB SCH ×2 (08:36→21:28)
[2016-11-25] MEDS: HYDROCORTISONE 1% 28 GM CR TOP SCH ×2 (08:36→21:00)
[2016-11-25] MEDS: ASPIRIN 81 MG TAB GTB SCH (08:36)
[2016-11-25] MEDS: BISACODYL 10 MG SUPP PR SCH ×2 (08:36→09:00)
[2016-11-25] MEDS: LISINOPRIL 5 MG TAB PO SCH (08:38)
[2016-11-25] MEDS: POTASSIUM CHLORIDE 20 MEQ POWDER FOR ORAL SOLN GTB SCH (08:39)
--- NOTE | 2016-11-25 12:00 | CONS ---
Date/Time of Note Date/Time of Note DATE: 11/25/16 TIME: 11:58 Assessment/Plan Assessment/Plan Additional Assessment/Plan Chest x-ray was reviewed from yesterday evening which is showing stable findings which are compatible with underlying pulmonary fibrotic changes. Assessment and recommendations; 1. Patient admitted with what appeared to be bilateral pneumonia however chest x-ray findings are not indicative of underlying pulmonary fibrosis. Patient status post recent prolonged stay at another facility. 2. History of amyotrophic lateral sclerosis with functional quadriplegia. 3. Hypertension. 4. Chronic lower extremity edema. Continue current treatment. Consider discharge. Consultation Date/Type/Reason Admit Date/Time Nov 16, 2016 at 17:39 Initial Consult Date 11/20/16 Type of Consultation: Pulmonary 24 HR Interval Summary Free Text/Dictation Patient's condition remains stable. Remains awake and alert. Has remained hemodynamically stable. Denies any shortness of breath. General exam; elderly woman, on ventilator via tracheostomy, awake and alert. Currently in no distress. Exam/Review of Systems Vital Signs Vitals Vital Signs Date Time Temp Pulse Resp B/P Pulse Ox O2 Delivery O2 Flow Rate FiO2 11/25/16 09:30 80 18 99 11/25/16 09:25 93/56 11/25/16 08:00 96.9 11/25/16 05:35 35 11/21/16 11:51 Mechanical Ventilator Intake and Output 11/24/16 11/24/16 11/25/16 15:00 23:00 07:00 Intake Total 610 ml 460 ml Output Total 1200 ml 400 ml Balance -590 ml 60 ml Exam HEENT exam; supple neck, no JVD. No lymphadenopathy. Midline trachea. No thyromegaly. Patient has fair dentition. Tracheostomy in place. Chest exam; diminished breath sounds bilaterally. S1-S2 audible, no murmurs. Regular rhythm. Abdomen exam; soft, nondistended. No organomegaly. G-tube in place. Bowel sounds audible. Extremity exam; trace edema in lower extremities bilaterally. HOP WORKER exam; patient is awake and responds appropriately by eye blinking and lip thinking. Able to move left upper extremity to very minimal extent. Results Result Diagram: 11/22/16 0350 11/24/16 1327 Results 24 hrs Laboratory Tests Test 11/24/16 13:27 Blood Urea Nitrogen 11 Creatinine 0.27 L Medications Medications Current Medications Alprazolam (Xanax) 0.5 mg Q8H PRN GTB ANXIETY Last administered on 11/25/16 03:31; Admin Dose 0.5 MG; Start 11/17/16 at 03:00 Aspirin (Aspirin) 81 mg DAILY GTB Last administered on 11/25/16 08:36; Admin Dose 81 MG; Start 11/17/16 at 09:00 Atorvastatin Calcium (Lipitor) 20 mg QHS GTB Last administered on 11/24/16 21 :09; Admin Dose 20 MG; Start 11/17/16 at 21:00 Bisacodyl (Dulcolax Supp) 10 mg DAILY [place] ; Start 11/17/16 at 09:00 Potassium Chloride (Potassium Chloride Pwd/Soln) 20 meq DAILY GTB Last administered on 11/25/16 08:39; Admin Dose 20 MEQ; Start 11/17/16 at 09:00 Senna (Senokot) 1 tab DAILY PRN GTB CONSTIPATION Last administered on 18:17; Admin Dose 1 TAB; Start 11/17/16 at 03:00 Eye Lubricant (Artificial Tears Oph) 1 drop TID PRN BOTH EYES DRY EYES; Start 11/17/16 at 03:00 Miscellaneous Information (Pending [facility] Order For Wound Care) This patient ames... PRN PRN XX WOUND CARE; Start 11/17/16 at 04:30 Morphine Sulfate (morphine) 2 mg Q2H PRN IV pain Last administered on 04:35; Admin Dose 2 MG; Start 11/17/16 at 10:30 Ondansetron HCl (Zofran Inj) 4 mg Q4H PRN IV NAUSEA AND/OR VOMITING Last administered on 11/18/16 14:41; Admin Dose 4 MG; Start 11/17/16 at 11:00 Lisinopril (Zestril) 5 mg DAILY PO Last administered on 11/20/16 09:10; Admin Dose 5 MG; Start 11/18/16 at 10:00 Apixaban (Eliquis) 5 mg BID GTB Last administered on 11/25/16 08:36; Admin Dose 5 MG; Start 11/20/16 at 21:00 Hydrocortisone (Hydrocortisone 1% Cr) 1 applic BID TOP Last administered on 08:36; Admin Dose 1 APPLIC; Start 11/23/16 at 17:00 Acetaminophen/ Hydrocodone Bitart ([place] ()) 2 tab Q4H PRN GTB PAIN Last administered on 11/25/16 03:33; Admin Dose 2 TAB; Start 11/24/16 at 15:00 KEE ESPINOZA Nov 25, 2016 12:00
--- NOTE | 2016-11-25 18:53 | PN ---
Date/Time of Note Date/Time of Note DATE: 11/25/16 TIME: 18:46 Assessment/Plan VTE Prophylaxis VTE Prophylaxis Intervention: other Lines/Catheters IV Catheter Type (from Nrsg): Saline Lock Assessment/Plan Chief Complaint/Hosp Course 1. 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 Chest pain secondary to pleural effusions-resolved Echo shows an EF of 50% Continue diuresis Chest x-ray from yesterday is unchanged continues to show pulmonary vascular congestion with small bilateral pleural effusions Status post antibiotics Troponin negative, EKG without signs of ischemia Pain control 3. Deafness 4. Anemia likely of chronic disease 5. History of upper extremity DVT Change Eliquis to 5 twice daily 6. Back pain Pain now controlled with extra strength [place] 2 tabs p.o. every 4 hours as needed 7. UTI status post antibiotics Prophylaxis: Eliquis Discharge planning: Patient does not want return to a assisted facility and would like to go home but daughter does not feel that she can care for her at home and wants patient to go to custodial, patient was discharged to a nursing facility but she appealed her discharge, currently awaiting Medicare decision Problems: Subjective 24 Hr Interval Summary Constitutional: no complaints Exam/Review of Systems Vital Signs Vitals Vital Signs Date Time Temp Pulse Resp B/P Pulse Ox O2 Delivery O2 Flow Rate FiO2 11/25/16 17:28 88 18 11/25/16 16:00 98.1 108/60 97 11/25/16 05:35 35 11/21/16 11:51 Mechanical Ventilator Intake and Output 11/24/16 11/24/16 11/25/16 15:00 23:00 07:00 Intake Total 610 ml 460 ml Output Total 1200 ml 400 ml Balance -590 ml 60 ml Exam Constitutional: alert, oriented Respiratory: clear to auscultation Cardiovascular: regular rate and rhythm Gastrointestinal: soft, No distended Musculoskeletal: nl extremities to inspection Results Result Diagram: 11/22/16 0350 11/24/16 6294 Medications Medications Current Medications Alprazolam (Xanax) 0.5 mg Q8H PRN GTB ANXIETY Last administered on 11/25/16 18:27; Admin Dose 0.5 MG; Start 11/17/16 at 03:00 Aspirin (Aspirin) 81 mg DAILY GTB Last administered on 11/25/16 08:36; Admin Dose 81 MG; Start 11/17/16 at 09:00 Atorvastatin Calcium (Lipitor) 20 mg QHS GTB Last administered on 11/24/16 21 :09; Admin Dose 20 MG; Start 11/17/16 at 21:00 Bisacodyl (Dulcolax Supp) [address] ; Start 11/17/16 at 09:00 Potassium Chloride (Potassium Chloride Pwd/Soln) 20 meq DAILY GTB Last administered on 11/25/16 08:39; Admin Dose 20 MEQ; Start 11/17/16 at 09:00 Senna (Senokot) 1 tab DAILY PRN GTB CONSTIPATION Last administered on 18:17; Admin Dose 1 TAB; Start 11/17/16 at 03:00 Eye Lubricant (Artificial Tears Oph) 1 drop TID PRN BOTH EYES DRY EYES; Start 11/17/16 at 03:00 Miscellaneous Information (Pending Santyl Order For Wound Care) This patient ames... PRN PRN XX WOUND CARE; Start 11/17/16 at 04:30 Morphine Sulfate (morphine) 2 mg Q2H PRN IV pain Last administered on 04:35; Admin Dose 2 MG; Start 11/17/16 at 10:30 Ondansetron HCl (Zofran Inj) 4 mg Q4H PRN IV NAUSEA AND/OR VOMITING Last administered on 11/18/16 14:41; Admin Dose 4 MG; Start 11/17/16 at 11:00 Lisinopril (Zestril) 5 mg DAILY PO Last administered on 11/20/16 09:10; Admin Dose 5 MG; Start 11/18/16 at 10:00 Apixaban (Eliquis) 5 mg BID GTB Last administered on 11/25/16 08:36; Admin Dose 5 MG; Start 11/20/16 at 21:00 Hydrocortisone (Hydrocortisone 1% Cr) 1 applic BID TOP Last administered on 08:36; Admin Dose 1 APPLIC; Start 11/23/16 at 17:00 Acetaminophen/ Hydrocodone Bitart ([place] ()) 2 tab Q4H PRN GTB PAIN Last administered on 11/25/16t 12:29; Admin Dose 2 TAB; Start 11/24/16 at 15:00 PATRICK NEWMAN Nov 25, 2016 18:53
[2016-11-25] MEDS: ATORVASTATIN 20 MG TAB GTB SCH (21:28)
[2016-11-25] MEDS: morphine 2 MG INJ IV PRN (23:58)
[2016-11-26] VITALS (27 sets, daily range): BP systolic 73–110; BP diastolic 44–58; PULSE 76–96; RESP 18–20
[2016-11-26] MEDS: IPRATROPIUM (HFA) 12.9 GM INHALER INH SCH ×6 (00:52→20:25)
[2016-11-26] MEDS: ALBUTEROL 18 GM INHALER INH SCH ×6 (00:52→20:25)
[2016-11-26] MEDS: morphine 2 MG INJ IV PRN ×5 (02:08→16:35)
[2016-11-26] MEDS: FUROSEMIDE 20 MG INJ IV SCH ×2 (06:00→17:58)
[2016-11-26] MEDS: APIXABAN 5 MG TABLET GTB SCH ×2 (08:15→19:37)
[2016-11-26] MEDS: POTASSIUM CHLORIDE 20 MEQ POWDER FOR ORAL SOLN GTB SCH (08:15)
[2016-11-26] MEDS: ASPIRIN 81 MG TAB GTB SCH (08:15)
[2016-11-26] MEDS: HYDROCODONE/APAP (10/325) TAB GTB PRN ×4 (08:15→22:23)
[2016-11-26] MEDS: SENNA TAB GTB PRN (08:15)
[2016-11-26] MEDS: LISINOPRIL 5 MG TAB PO SCH (08:16)
[2016-11-26] MEDS: BISACODYL 10 MG SUPP PR SCH (08:16)
[2016-11-26] MEDS: HYDROCORTISONE 1% 28 GM CR TOP SCH ×2 (08:16→19:38)
--- NOTE | 2016-11-26 11:39 | CONS ---
Date/Time of Note Date/Time of Note DATE: 11/26/16 TIME: 11:36 Assessment/Plan Assessment/Plan Additional Assessment/Plan Ventilator setting; AC of 18, tidal volume 450, PEEP of 5, 35% FiO2. Assessment and recommendations; 1. Patient with history of chronic respiratory failure due to amyotrophic lateral sclerosis with functional quadriplegia admitted for treatment of what appeared to be bilateral pneumonia, however the chest x-ray findings are consistent with underlying pulmonary fibrosis. Patient is now off antibiotics. Continue current supportive care. Consider discharge. Consultation Date/Type/Reason Admit Date/Time Nov 16, 2016 at 17:39 Initial Consult Date 11/20/16 Type of Consultation: Pulmonary 24 HR Interval Summary Free Text/Dictation Patient's condition remained stable. Remains awake and alert. Has remained hemodynamically stable. General exam; elderly woman, on ventilator via tracheostomy. Currently in no distress. Exam/Review of Systems Vital Signs Vitals Vital Signs Date Time Temp Pulse Resp B/P Pulse Ox O2 Delivery O2 Flow Rate FiO2 11/26/16 09:35 77 18 95 35 11/26/16 07:00 98.6 86/51 Intake and Output 11/25/16 11/25/16 11/26/16 15:00 23:00 07:00 Intake Total 560 ml 550 ml Output Total 350 ml 1000 ml Balance 210 ml -450 ml Exam HEENT exam; supple neck, no JVD. No lymphadenopathy. Midline trachea. No thyromegaly. Patient has fair dentition. Tracheostomy in place. Insertion site is clean. Chest exam; diminished but clear breath sounds. S1-S2 audible, no murmurs. Abdomen exam; soft, G-tube in place. No organomegaly. Bowel sounds audible. Extremity exam; trace pitting edema lower extremities bilaterally. Next COLD MILL SUPERVISOR exam; patient is awake and responds appropriately by lips movements. Able to move her left upper extremity to very minimal extent. Results Result Diagram: 11/22/16 0350 11/24/16 1327 Medications Medications Current Medications Alprazolam (Xanax) 0.5 mg Q8H PRN GTB ANXIETY Last administered on 11/25/16t 18:27; Admin Dose 0.5 MG; Start 11/17/16 at 03:00 Bisacodyl (Dulcolax Supp) 10 mg DAILY [place] ; Start 11/17/16 at 09:00 Potassium Chloride (Potassium Chloride Pwd/Soln) 20 meq DAILY GTB Last administered on 11/26/16 08:15; Admin Dose 20 MEQ; Start 11/17/16 at 09:00 Senna (Senokot) 1 tab DAILY PRN GTB CONSTIPATION Last administered on 08:15; Admin Dose 1 TAB; Start 11/17/16 at 03:00 Eye Lubricant (Artificial Tears Oph) 1 drop TID PRN BOTH EYES DRY EYES; Start 11/17/16 at 03:00 Miscellaneous Information (Pending [facility] Order For Wound Care) This patient ames... PRN PRN XX WOUND CARE; Start 11/17/16 at 04:30 Morphine Sulfate (morphine) 2 mg Q2H PRN IV pain Last administered on 11:10; Admin Dose 2 MG; Start 11/17/16 at 10:30 Ondansetron HCl (Zofran Inj) 4 mg Q4H PRN IV NAUSEA AND/OR VOMITING Last administered on 11/18/16 14:41; Admin Dose 4 MG; Start 11/17/16 at 11:00 Apixaban (Eliquis) 5 mg BID GTB Last administered on 11/26/16 08:15; Admin Dose 5 MG; Start 11/20/16 at 21:00 Hydrocortisone (Hydrocortisone 1% Cr) 1 applic BID TOP Last administered on 08:16; Admin Dose 1 APPLIC; Start 11/23/16 at 17:00 Acetaminophen/ Hydrocodone Bitart ([place] (10/325)) 2 tab Q4H PRN GTB PAIN Last administered on 11/26/16 08:15; Admin Dose 2 TAB; Start 11/24/16 at 15:00 KEE ESPINOZA Nov 26, 2016 11:39
--- NOTE | 2016-11-26 14:36 | PN ---
Date/Time of Note Date/Time of Note DATE: 11/26/16 TIME: 14:34 Assessment/Plan VTE Prophylaxis VTE Prophylaxis Intervention: other Lines/Catheters IV Catheter Type (from Nrsg): Peripheral IV Urinary Cath still in place: Yes Reason Cath still needed: urinary retention Assessment/Plan Chief Complaint/Hosp Course 61 yo female with ALS, Deafness, chronic respiratory failure on MV, recent trach , systolic CHF who was discharged from [facility] this AM followign prolonged hospitalization there for respiratoyr failure for which she recieved abx and trach was placed. Sent from SNF for possible complaint of CP. Found to have hypokalemia and chronic CHF Hypokalemia: - Resolved Acute on chronic CHF exacerbation: - Continue lasix diuresis ALS leading to chronic respiratory failure - Continue MV Anemia: - Likely of chornic disease H/u UE DVT: - Apixiban course Patient stable for discharge to SNF DNR Problems: Subjective 24 Hr Interval Summary Free Text/Dictation Awaiting decision on transfer appeal Patient reports pain in back Exam/Review of Systems Vital Signs Vitals Vital Signs Date Time Temp Pulse Resp B/P Pulse Ox O2 Delivery O2 Flow Rate FiO2 11/26/16 12:23 85 11/26/16 11:05 18 96 35 11/26/16 11:00 97.8 73/44 Intake and Output 11/25/16 11/25/16 11/26/16 15:00 23:00 07:00 Intake Total 560 ml 550 ml Output Total 350 ml 1000 ml Balance 210 ml -450 ml Results Result Diagram: 11/22/16 0350 11/24/16 1327 Medications Medications Current Medications Alprazolam (Xanax) 0.5 mg Q8H PRN GTB ANXIETY Last administered on 11/25/16 18:27; Admin Dose 0.5 MG; Start 11/17/16 at 03:00 Bisacodyl (Dulcolax Supp) 10 mg DAILY [place] ; Start 11/17/16 at 09:00 Potassium Chloride (Potassium Chloride Pwd/Soln) 20 meq DAILY GTB Last administered on 11/26/16 08:15; Admin Dose 20 MEQ; Start 11/17/16 at 09:00 Senna (Senokot) 1 tab DAILY PRN GTB CONSTIPATION Last administered on 08:15; Admin Dose 1 TAB; Start 11/17/16 at 03:00 Eye Lubricant (Artificial Tears Oph) 1 drop TID PRN BOTH EYES DRY EYES; Start 11/17/16 at 03:00 Miscellaneous Information (Pending [facility] Order For Wound Care) This patient ames... PRN PRN XX WOUND CARE; Start 11/17/16 at 04:30 Morphine Sulfate (morphine) 2 mg Q2H PRN IV pain Last administered on 11:10; Admin Dose 2 MG; Start 11/17/16 at 10:30 Ondansetron HCl (Zofran Inj) 4 mg Q4H PRN IV NAUSEA AND/OR VOMITING Last administered on 11/18/16 14:41; Admin Dose 4 MG; Start 11/17/16 at 11:00 Apixaban (Eliquis) 5 mg BID GTB Last administered on 11/26/16 08:15; Admin Dose 5 MG; Start 11/20/16 at 21:00 Hydrocortisone (Hydrocortisone 1% Cr) 1 applic BID TOP Last administered on 08:16; Admin Dose 1 APPLIC; Start 11/23/16 at 17:00 Acetaminophen/ Hydrocodone Bitart ([place] (10/325)) 2 tab Q4H PRN GTB PAIN Last administered on 11/26/16 12:21; Admin Dose 2 TAB; Start 11/24/16 at 15:00 LANA SHARMA MD Nov 26, 2016 14:36
[2016-11-26 15:06] LABS: CALCIUM 7.6 mg/dl (8.4-10.2); CREATININE 0.28 mg/dl (0.44-1.00); MAGNESIUM 1.9 mg/dl (1.7-2.5); POTASSIUM 4.4 mmol/L (3.5-5.1)
[2016-11-27] VITALS (23 sets, daily range): BP systolic 82–107; BP diastolic 52–77; PULSE 85–100; RESP 18–20
[2016-11-27] MEDS: ALBUTEROL 18 GM INHALER INH SCH ×6 (01:15→21:00)
[2016-11-27] MEDS: IPRATROPIUM (HFA) 12.9 GM INHALER INH SCH ×6 (01:15→21:00)
[2016-11-27] MEDS: HYDROCODONE/APAP (10/325) TAB GTB PRN ×3 (02:04→15:44)
[2016-11-27] MEDS: FUROSEMIDE 20 MG INJ IV SCH ×2 (06:00→19:19)
[2016-11-27] MEDS: morphine 2 MG INJ IV PRN ×5 (07:30→23:05)
[2016-11-27] MEDS: BISACODYL 10 MG SUPP PR SCH (09:00)
[2016-11-27] MEDS: APIXABAN 5 MG TABLET GTB SCH ×2 (10:18→20:53)
[2016-11-27] MEDS: POTASSIUM CHLORIDE 20 MEQ POWDER FOR ORAL SOLN GTB SCH (10:18)
[2016-11-27] MEDS: HYDROCORTISONE 1% 28 GM CR TOP SCH ×2 (10:18→20:53)
--- NOTE | 2016-11-27 14:40 | PN ---
Date/Time of Note Date/Time of Note DATE: 11/27/16 TIME: 14:39 Assessment/Plan VTE Prophylaxis VTE Prophylaxis Intervention: LMWH Lines/Catheters IV Catheter Type (from Nrsg): Peripheral IV Urinary Cath still in place: Yes Reason Cath still needed: urinary retention Assessment/Plan Chief Complaint/Hosp Course 61 yo female with ALS, Deafness, chronic respiratory failure on MV, recent trach , systolic CHF who was discharged from [facility] this AM followign prolonged hospitalization there for respiratoyr failure for which she recieved abx and trach was placed. Sent from [facility] for possible complaint of CP. Found to have hypokalemia and chronic CHF Hypokalemia: - Resolved Acute on chronic CHF exacerbation: - Continue lasix diuresis ALS leading to chronic respiratory failure - Continue MV Anemia: - Likely of chornic disease H/u UE DVT: - Apixiban course Patient stable for discharge to [facility] tomorrow DNR Problems: Subjective 24 Hr Interval Summary Free Text/Dictation Per CM patinet denied appeal Will be discharged tomorrow to subacute Exam/Review of Systems Vital Signs Vitals Vital Signs Date Time Temp Pulse Resp B/P Pulse Ox O2 Delivery O2 Flow Rate FiO2 11/27/16 13:10 106 18 96 35 11/27/16 11:29 98.1 107/54 Intake and Output 11/26/16 11/26/16 11/27/16 15:00 23:00 07:00 Intake Total 800 ml Output Total 1700 ml 800 ml Balance -900 ml -800 ml Results Result Diagram: 11/26/16 1400 Medications Medications Current Medications Alprazolam (Xanax) 0.5 mg Q8H PRN GTB ANXIETY Last administered on 11/25/16 18:27; Admin Dose 0.5 MG; Start 11/17/16 at 03:00 Bisacodyl (Dulcolax Supp) 10 mg DAILY [place] ; Start 11/17/16 at 09:00 Potassium Chloride (Potassium Chloride Pwd/Soln) 20 meq DAILY GTB Last administered on 11/27/16 10:18; Admin Dose 20 MEQ; Start 11/17/16 at 09:00 Senna (Senokot) 1 tab DAILY PRN GTB CONSTIPATION Last administered on 08:15; Admin Dose 1 TAB; Start 11/17/16 at 03:00 Eye Lubricant (Artificial Tears Oph) 1 drop TID PRN BOTH EYES DRY EYES; Start 11/17/16 at 03:00 Miscellaneous Information (Pending [facility] Order For Wound Care) This patient ames... PRN PRN XX WOUND CARE; Start 11/17/16 at 04:30 Morphine Sulfate (morphine) 2 mg Q2H PRN IV pain Last administered on 11:21; Admin Dose 2 MG; Start 11/17/16 at 10:30 Ondansetron HCl (Zofran Inj) 4 mg Q4H PRN IV NAUSEA AND/OR VOMITING Last administered on 11/18/16 14:41; Admin Dose 4 MG; Start 11/17/16 at 11:00 Apixaban (Eliquis) 5 mg BID GTB Last administered on 11/27/16 10:18; Admin Dose 5 MG; Start 11/20/16 at 21:00 Hydrocortisone (Hydrocortisone 1% Cr) 1 applic BID TOP Last administered on 10:18; Admin Dose 1 APPLIC; Start 11/23/16 at 17:00 Acetaminophen/ Hydrocodone Bitart ([place] (10/325)) 2 tab Q4H PRN GTB PAIN Last administered on 11/27/16 10:19; Admin Dose 2 TAB; Start 11/24/16 at 15:00 LANA SHARMA MD Nov 27, 2016 14:40
--- NOTE | 2016-11-27 16:05 | CONS ---
Date/Time of Note Date/Time of Note DATE: 11/27/16 TIME: 16:02 Assessment/Plan Assessment/Plan Additional Assessment/Plan Ventilator setting; AC of 16, tidal volume 450, PEEP of 5, 35% FiO2. Assessment and recommendations; 1. Patient admitted for what appeared to be pneumonia based on chest x-ray findings however repeat chest x-ray did not show any interval change in the findings are consistent with underlying pulmonary fibrotic changes. Patient is now off antibiotics. 2. Amyotrophic lateral sclerosis with quadriplegia resulting in chronic respiratory failure. 3. Neuropathy. Continue current supportive care. Patient awaiting placement in a skilled nursing. Consultation Date/Type/Reason Admit Date/Time Nov 16, 2016 at 17:39 Initial Consult Date 11/20/16 Type of Consultation: Pulmonary 24 HR Interval Summary Free Text/Dictation Patient condition remains stable. Remains awake alert. Has remained hemodynamically stable. No untoward events reported. General exam; elderly woman, on ventilator via tracheostomy. Currently in no distress. Exam/Review of Systems Vital Signs Vitals Vital Signs Date Time Temp Pulse Resp B/P Pulse Ox O2 Delivery O2 Flow Rate FiO2 11/27/16 15:05 98 18 96 35 11/27/16 11:29 98.1 107/54 Intake and Output 11/26/16 11/26/16 11/27/16 15:00 23:00 07:00 Intake Total 800 ml Output Total 1700 ml 800 ml Balance -900 ml -800 ml Exam HEENT exam; supple neck, no JVD. No lymphadenopathy. Midline trachea. No thyromegaly. Patient has fair dentition. The colostomy in place. Pupils are small bilaterally. Chest exam; diminished but clear breath sounds. S1-S2 audible, no murmurs. Regular rhythm. Abdomen exam; soft, nondistended. No organomegaly. G-tube in place. Bowel sounds audible. Extremity exam; no peripheral edema in upper extremities. Trace lower extremity pitting edema bilaterally. POST CLOSER exam; patient has intact cranial nerves but has functional quadriplegia with very minimal movement involving the left hand seen. Results Result Diagram: 11/26/16 1400 Medications Medications Current Medications Alprazolam (Xanax) 0.5 mg Q8H PRN GTB ANXIETY Last administered on 11/25/16t 18:27; Admin Dose 0.5 MG; Start 11/17/16 at 03:00 Bisacodyl (Dulcolax Supp) 10 mg DAILY [place] ; Start 11/17/16 at 09:00 Senna (Senokot) 1 tab DAILY PRN GTB CONSTIPATION Last administered on 08:15; Admin Dose 1 TAB; Start 11/17/16 at 03:00 Eye Lubricant (Artificial Tears Oph) 1 drop TID PRN BOTH EYES DRY EYES; Start 11/17/16 at 03:00 [facility] This patient ames... PRN PRN XX WOUND CARE; Start 11/17/16 at 04:30 Morphine Sulfate (morphine) 2 mg Q2H PRN IV pain Last administered on 11:21; Admin Dose 2 MG; Start 11/17/16 at 10:30 Ondansetron HCl (Zofran Inj) 4 mg Q4H PRN IV NAUSEA AND/OR VOMITING Last administered on 11/18/16 14:41; Admin Dose 4 MG; Start 11/17/16 at 11:00 Apixaban (Eliquis) 5 mg BID GTB Last administered on 11/27/16 10:18; Admin Dose 5 MG; Start 11/20/16 at 21:00 Hydrocortisone (Hydrocortisone 1% Cr) 1 applic BID TOP Last administered on 10:18; Admin Dose 1 APPLIC; Start 11/23/16 at 17:00 Acetaminophen/ Hydrocodone Bitart ([place] (10/325)) 2 tab Q4H PRN GTB PAIN Last administered on 11/27/16 15:44; Admin Dose 2 TAB; Start 11/24/16 at 15:00 KEE ESPINOZA Nov 27, 2016 16:05
[2016-11-28] VITALS (26 sets, daily range): BP systolic 91–121; BP diastolic 51–84; PULSE 82–110; RESP 16–18
[2016-11-28] MEDS: ALBUTEROL 18 GM INHALER INH SCH ×6 (00:19→20:52)
[2016-11-28] MEDS: IPRATROPIUM (HFA) 12.9 GM INHALER INH SCH ×6 (00:19→20:52)
[2016-11-28] MEDS: morphine 2 MG INJ IV PRN ×6 (00:58→21:54)
[2016-11-28] MEDS: HYDROCODONE/APAP (10/325) TAB GTB PRN ×2 (03:13→10:55)
[2016-11-28] MEDS: FUROSEMIDE 20 MG INJ IV SCH ×2 (05:12→18:44)
[2016-11-28] MEDS: APIXABAN 5 MG TABLET GTB SCH ×2 (08:21→21:31)
[2016-11-28] MEDS: BISACODYL 10 MG SUPP PR SCH (09:00)
[2016-11-28] MEDS: HYDROCORTISONE 1% 28 GM CR TOP SCH ×2 (09:00→21:31)
--- NOTE | 2016-11-28 10:31 | PN ---
Date/Time of Note Date/Time of Note DATE: 11/28/16 TIME: 10:24 Assessment/Plan VTE Prophylaxis VTE Prophylaxis Intervention: other (apixiban ) Lines/Catheters IV Catheter Type (from Nrsg): Peripheral IV Urinary Cath still in place: Yes Reason Cath still needed: skin wounds contaminated by urine, other (indicate) Assessment/Plan Assessment/Plan 61 yo female with ALS, Deafness, chronic respiratory failure on MV, recent trach , systolic CHF who was discharged from [place] this AM followign prolonged hospitalization there for respiratoyr failure for which she recieved abx and trach was placed. Sent from SNF for possible complaint of CP. Found to have hypokalemia and chronic CHF Hypokalemia: - Resolved Acute on chronic CHF exacerbation: - Continue lasix diuresis ALS leading to chronic respiratory failure - Continue MV Anemia: - Likely of chronic disease H/u UE DVT: - Apixiban course pt family appealed discharged plan to SNF, currently discharged order with medication reconciliation done - whatever decision comes out of appeal, will plan accordingly DNR Subjective 24 Hr Interval Summary Free Text/Dictation pt stable, no chest pain, Sinus rthythm, no palpitation Exam/Review of Systems Vital Signs Vitals Vital Signs Date Time Temp Pulse Resp B/P Pulse Ox O2 Delivery O2 Flow Rate FiO2 11/28/16 09:21 85 18 100 35 11/28/16 08:20 97.4 109/55 Intake and Output 11/27/16 11/27/16 11/28/16 15:00 23:00 07:00 Intake Total 460 ml Output Total 850 ml Balance -390 ml Exam Constitutional: alert, + tracheostomy Respiratory: clear to auscultation Cardiovascular: regular rate and rhythm Gastrointestinal: soft, No distended Musculoskeletal: nl extremities to inspection Results Result Diagram: 11/26/16 1400 Medications Medications Current Medications Alprazolam (Xanax) 0.5 mg Q8H PRN GTB ANXIETY Last administered on 11/25/16 18:27; Admin Dose 0.5 MG; Start 11/17/16 at 03:00 Bisacodyl (Dulcolax Supp) 10 mg DAILY [place] ; Start 11/17/16 at 09:00 Senna (Senokot) 1 tab DAILY PRN GTB CONSTIPATION Last administered on 08:15; Admin Dose 1 TAB; Start 11/17/16 at 03:00 Eye Lubricant (Artificial Tears Oph) 1 drop TID PRN BOTH EYES DRY EYES; Start 11/17/16 at 03:00 [facility] This patient maes... PRN PRN XX WOUND CARE; Start 11/17/16 at 04:30 Morphine Sulfate (morphine) 2 mg Q2H PRN IV pain Last administered on 08:21; Admin Dose 2 MG; Start 11/17/16 at 10:30 Ondansetron HCl (Zofran Inj) 4 mg Q4H PRN IV NAUSEA AND/OR VOMITING Last administered on 11/18/16 14:41; Admin Dose 4 MG; Start 11/17/16 at 11:00 Apixaban (Eliquis) 5 mg BID GTB Last administered on 11/28/16 08:21; Admin Dose 5 MG; Start 11/20/16 at 21:00 Hydrocortisone (Hydrocortisone 1% Cr) 1 applic BID TOP Last administered on 20:53; Admin Dose 1 APPLIC; Start 11/23/16 at 17:00 Acetaminophen/ Hydrocodone Bitart ([place] (10/325)) 2 tab Q4H PRN GTB PAIN Last administered on 11/28/16 03:13; Admin Dose 2 TAB; Start 11/24/16 at 15:00 MUSTAPHA BUSTOS MD Nov 28, 2016 10:31
--- NOTE | 2016-11-28 10:37 | PDOCDIS ---
Discharge Instructions DIAGNOSIS Discharge Diagnosis 1. 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 Chest pain secondary to pneumonia and pleural effusions pain control with [place] shows an EF of 50% Continue diuresis Troponin negative, EKG without signs of ischemia 3. Deafness 4. Anemia likely of chronic disease 5. History of upper extremity DVT Changed Eliquis to 5 twice daily CONDITION Patient Condition: Good HOME CARE INSTRUCTIONS: Special Diet: tube feeding ACTIVITY: Activity Restrictions: Slowly Increase Activity Rest between Activity Avoid heavy lifting Avoid Heavy Housework FOLLOW UP/APPOINTMENTS Follow-up Plan Follow-up with physicians- Primary care physician and Pulmonary physician at [facility] facility MUSTAPHA BUSTOS MD Nov 28, 2016 10:36
[2016-11-28] MEDS: ALPRAZOLAM 0.5 MG TAB GTB PRN (10:55)
--- NOTE | 2016-11-28 17:06 | CONS ---
Date/Time of Note Date/Time of Note DATE: 11/28/16 TIME: 17:04 Assessment/Plan Assessment/Plan Additional Assessment/Plan Ventilator setting; AC of 14, tidal volume 400, PEEP of 5, 30% FiO2. Next Assessment and recommendations; next 1. Patient admitted with diagnosis of pneumonia however chest x-ray findings are consistent with pulmonary fibrosis. Patient off antibiotics. 2. Chronic respiratory failure due to ALS. 3. Anemia. Continue current treatment. Patient awaiting transfer to rehab. Consultation Date/Type/Reason Admit Date/Time Nov 16, 2016 at 17:39 Initial Consult Date 11/20/16 Type of Consultation: Pulmonary 24 HR Interval Summary Free Text/Dictation Patient's condition is stable. Remains awake alert. Has remained hemodynamically stable. General exam; elderly woman, on ventilator via tracheostomy, currently in no distress. Exam/Review of Systems Vital Signs Vitals Vital Signs Date Time Temp Pulse Resp B/P Pulse Ox O2 Delivery O2 Flow Rate FiO2 11/28/16 15:28 84 18 100 35 11/28/16 12:00 97.7 121/84 Intake and Output 11/27/16 11/27/16 11/28/16 15:00 23:00 07:00 Intake Total 460 ml Output Total 850 ml Balance -390 ml Exam HEENT exam; supple neck, no JVD. No lymphadenopathy. Midline trachea. No thyromegaly. Patient has fair dentition. Tracheostomy in place. Chest exam; clear to auscultation. S1-S2 audible, no murmurs. Regular rhythm. Abdomen exam; soft, G-tube in place. No organomegaly. Bowel sounds audible. Extremity exam; trace edema lower extremities. 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 Results Result Diagram: 11/26/16 1400 Medications Medications Current Medications Alprazolam (Xanax) 0.5 mg Q8H PRN GTB ANXIETY Last administered on 11/28/16 10:55; Admin Dose 0.5 MG; Start 11/17/16 at 03:00 Bisacodyl (Dulcolax Supp) 10 mg DAILY [place] ; Start 11/17/16 at 09:00 Senna (Senokot) 1 tab DAILY PRN GTB CONSTIPATION Last administered on 08:15; Admin Dose 1 TAB; Start 11/17/16 at 03:00 Eye Lubricant (Artificial Tears Oph) 1 drop TID PRN BOTH EYES DRY EYES; Start 11/17/16 at 03:00 [facility] This patient ames... PRN PRN XX WOUND CARE; Start 11/17/16 at 04:30 Morphine Sulfate (morphine) 2 mg Q2H PRN IV pain Last administered on 13:18; Admin Dose 2 MG; Start 11/17/16 at 10:30 Ondansetron HCl (Zofran Inj) 4 mg Q4H PRN IV NAUSEA AND/OR VOMITING Last administered on 11/18/16 14:41; Admin Dose 4 MG; Start 11/17/16 at 11:00 Apixaban (Eliquis) 5 mg BID GTB Last administered on 11/28/16 08:21; Admin Dose 5 MG; Start 11/20/16 at 21:00 Hydrocortisone (Hydrocortisone 1% Cr) 1 applic BID TOP Last administered on 09:00; Admin Dose 1 APPLIC; Start 11/23/16 at 17:00 Acetaminophen/ Hydrocodone Bitart ([place] (10/325)) 2 tab Q4H PRN GTB PAIN Last administered on 11/28/16 10:55; Admin Dose 2 TAB; Start 11/24/16 at 15:00 KEE ESPINOZA Nov 28, 2016 17:06
[2016-11-29] VITALS (24 sets, daily range): BP systolic 84–105; BP diastolic 52–89; PULSE 88–112; RESP 16–75
[2016-11-29] MEDS: IPRATROPIUM (HFA) 12.9 GM INHALER INH SCH ×6 (01:04→20:38)
[2016-11-29] MEDS: ALBUTEROL 18 GM INHALER INH SCH ×6 (01:05→20:38)
[2016-11-29] MEDS: morphine 2 MG INJ IV PRN (02:03)
[2016-11-29] MEDS: HYDROCODONE/APAP (10/325) TAB GTB PRN ×4 (05:45→21:16)
[2016-11-29] MEDS: FUROSEMIDE 20 MG INJ IV SCH ×2 (05:45→18:26)
[2016-11-29] MEDS: BISACODYL 10 MG SUPP PR SCH (09:00)
[2016-11-29] MEDS: APIXABAN 5 MG TABLET GTB SCH ×2 (09:32→21:16)
[2016-11-29] MEDS: HYDROCORTISONE 1% 28 GM CR TOP SCH ×2 (09:33→21:23)
--- NOTE | 2016-11-29 18:11 | PN ---
Date/Time of Note Date/Time of Note DATE: 11/29/16 TIME: 18:09 Assessment/Plan VTE Prophylaxis VTE Prophylaxis Intervention: other (Eliquis ) Lines/Catheters IV Catheter Type (from Nrsg): Peripheral IV Urinary Cath still in place: Yes Reason Cath still needed: skin wounds contaminated by urine Assessment/Plan Assessment/Plan 61 yo female with ALS, Deafness, chronic respiratory failure on MV, recent trach , systolic CHF who was discharged from [place] this AM followign prolonged hospitalization there for respiratoyr failure for which she recieved abx and trach was placed. Sent from SNF for possible complaint of CP. Found to have hypokalemia and chronic CHF Hypokalemia: - Resolved Acute on chronic CHF exacerbation: - Continue lasix diuresis ALS leading to chronic respiratory failure - Continue MV Anemia: - Likely of chronic disease H/u UE DVT: - Apixiban course pt family appealed discharged plan to SNF, currently discharged order with medication reconciliation done - whatever decision comes out of appeal, will plan accordingly change [place] 10/325 to 1 tab Q 4 hr prn moderate pain and 2 tablets PO Q 4 hr prn severe pain DNR Subjective 24 Hr Interval Summary Free Text/Dictation c/o pain, norco pain medication has been changed, BP stable Exam/Review of Systems Vital Signs Vitals Vital Signs Date Time Temp Pulse Resp B/P Pulse Ox O2 Delivery O2 Flow Rate FiO2 11/29/16 16:56 107 18 100 11/29/16 15:47 97.2 105/60 11/29/16 15:13 35 Intake and Output 11/28/16 11/28/16 11/29/16 15:00 23:00 07:00 Intake Total 360 ml 370 ml Output Total 700 ml 900 ml Balance -340 ml -530 ml Exam Constitutional: alert, + tracheostomy Respiratory: clear to auscultation Cardiovascular: regular rate and rhythm Gastrointestinal: soft, No distended Musculoskeletal: nl extremities to inspection Results Result Diagram: 11/26/16 1400 Medications Medications Current Medications Alprazolam (Xanax) 0.5 mg Q8H PRN GTB ANXIETY Last administered on 11/28/16t 10:55; Admin Dose 0.5 MG; Start 11/17/16 at 03:00 Bisacodyl (Dulcolax Supp) 10 mg DAILY [place] ; Start 11/17/16 at 09:00 Senna (Senokot) 1 tab DAILY PRN GTB CONSTIPATION Last administered on 08:15; Admin Dose 1 TAB; Start 11/17/16 at 03:00 Eye Lubricant (Artificial Tears Oph) 1 drop TID PRN BOTH EYES DRY EYES; Start 11/17/16 at 03:00 Miscellaneous Information (Pending [facility] Order For Wound Care) This patient ames... PRN PRN XX WOUND CARE; Start 11/17/16 at 04:30 Morphine Sulfate (morphine) 2 mg Q2H PRN IV pain Last administered on 02:03; Admin Dose 2 MG; Start 11/17/16 at 10:30 Ondansetron HCl (Zofran Inj) 4 mg Q4H PRN IV NAUSEA AND/OR VOMITING Last administered on 11/18/16 14:41; Admin Dose 4 MG; Start 11/17/16 at 11:00 Apixaban (Eliquis) 5 mg BID GTB Last administered on 11/29/16 09:32; Admin Dose 5 MG; Start 11/20/16 at 21:00 Hydrocortisone (Hydrocortisone 1% Cr) 1 applic BID TOP Last administered on 09:33; Admin Dose 1 APPLIC; Start 11/23/16 at 17:00 Acetaminophen/ Hydrocodone Bitart ([place] (10/325)) 1 tab Q4H PRN GTB Moderate PAIN Last administered on 11/29/16 15:47; Admin Dose 1 TAB; Start 11/29/16 at 11:00 Acetaminophen/ Hydrocodone Bitart ([place] (10/325)) 2 tab Q4H PRN GTB Severe pain ; Start 11/29/16 at 11:00 MUSTAPHA BUSTOS MD Nov 29, 2016 18:11
[2016-11-30] VITALS (21 sets, daily range): BP systolic 84–125; BP diastolic 54–61; PULSE 76–96; RESP 18–20
[2016-11-30] MEDS: ALBUTEROL 18 GM INHALER INH SCH ×6 (01:06→21:59)
[2016-11-30] MEDS: IPRATROPIUM (HFA) 12.9 GM INHALER INH SCH ×6 (01:06→21:59)
[2016-11-30] MEDS: HYDROCODONE/APAP (10/325) TAB GTB PRN ×5 (01:52→19:53)
[2016-11-30] MEDS: FUROSEMIDE 20 MG INJ IV SCH ×2 (06:00→18:00)
[2016-11-30 06:18] LABS: ABNORMAL IP MESSAGE 1; BASOPHILS % 0.5 % (0.0-2.0); EOSINOPHILS # 0.3 10^3/ul (0.0-0.5); EOSINOPHILS % 3.1 % (0.0-7.0); HEMATOCRIT 21.4 % (37.0-47.0); LYMPHOCYTES # 1.7 10^3/ul (0.8-2.9); LYMPHOCYTES % 20.4 % (15.0-51.0); MEAN CORPUSCULAR HEMOGLOBIN 27.7 pg (29.0-33.0); MEAN CORPUSCULAR HGB CONC 30.8 g/dl (32.0-37.0); MEAN CORPUSCULAR VOLUME 89.9 fl (82.0-101.0); MONOCYTE # 0.8 10^3/ul (0.3-0.9); MONOCYTES % 8.9 % (0.0-11.0); NEUTROPHIL # 5.7 10^3/ul (1.6-7.5); NEUTROPHILS % 66.9 % (39.0-77.0); PLATELET COUNT 561 10^3/UL (140-415); RED BLOOD COUNT 2.38 10^6/ul (4.20-5.40); RED CELL DISTRIBUTION WIDTH 17.2 % (11.5-14.5); WHITE BLOOD COUNT 8.4 10^3/ul (4.8-10.8)
[2016-11-30 06:30] LABS: HEMOGLOBIN 6.6 g/dl (12.0-16.0)
[2016-11-30 06:31] LABS: POSITIVE DIFF @See below
[2016-11-30 06:32] LABS: PATH REVIEW? YES
[2016-11-30 06:47] LABS: INR 1.66; PROTIME 19.7 Sec (12.2-14.2); PT RATIO 1.5
[2016-11-30 06:48] LABS: PARTIAL THROMBOPLASTIN TIME 63.9 Sec (25.0-35.0)
[2016-11-30 07:08] LABS: ALBUMIN 2.1 g/dl (3.3-4.9); ALBUMIN/GLOBULIN RATIO 0.48; BILIRUBIN,INDIRECT 0.1 mg/dl (0-1.1); BILIRUBIN,TOTAL 0.1 mg/dl (0.2-1.3); CALCIUM 7.7 mg/dl (8.4-10.2); CREATININE 0.27 mg/dl (0.44-1.00); POTASSIUM 3.6 mmol/L (3.5-5.1); TOTAL PROTEIN 6.4 g/dl (6.1-8.1)
[2016-11-30] MEDS: HYDROCORTISONE 1% 28 GM CR TOP SCH ×2 (09:00→20:08)
[2016-11-30] MEDS: BISACODYL 10 MG SUPP PR SCH (09:00)
--- NOTE | 2016-11-30 11:52 | CONS ---
Date/Time of Note Date/Time of Note DATE: 11/30/16 TIME: 11:50 Assessment/Plan Assessment/Plan Additional Assessment/Plan Assessment recommendations; 1. Patient admitted with what appeared to be bilateral pneumonia however chest x-ray findings are suggestive of underlying fibrotic changes. Patient off antibiotics. 2. History of amyotrophic lateral sclerosis, with chronic respiratory failure. Continue current treatment. Patient awaiting placement in a care home. Consultation Date/Type/Reason Admit Date/Time Nov 16, 2016 at 17:39 Initial Consult Date 11/20/16 Type of Consultation: Pulmonary 24 HR Interval Summary Free Text/Dictation Patient's condition is stable. Remains awake alert. Has remained hemodynamically stable. General exam; elderly woman, on ventilator via tracheostomy, awake and alert. Currently in no distress. Exam/Review of Systems Vital Signs Vitals Vital Signs Date Time Temp Pulse Resp B/P Pulse Ox O2 Delivery O2 Flow Rate FiO2 11/30/16 11:10 85 18 98 35 11/30/16 07:35 97.8 84/54 Intake and Output 11/29/16 11/29/16 11/30/16 15:00 23:00 07:00 Intake Total 500 ml Output Total 800 ml Balance -300 ml Exam HEENT exam; supple neck, no JVD. No lymphadenopathy. Midline trachea. No thyromegaly. Tracheostomy placed. Patient has fair dentition. Chest exam; diminished but clear breath sounds. S1-S2 audible, no murmurs. Regular rhythm. Abdomen exam; soft, G-tube in place. Bowel sounds audible. Extremity exam; no peripheral edema in upper extremities. Trace lower extremity pitting edema bilaterally. 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 Results Result Diagram: 11/30/16 0525 11/30/16 0525 Results 24 hrs Laboratory Tests Test 11/30/16 05:25 White Blood Count 8.4 Red Blood Count 2.38 L Hemoglobin 6.6 #*L Hematocrit 21.4 #L Mean Corpuscular Volume 89.9 Mean Corpuscular Hemoglobin 27.7 L Mean Corpuscular Hemoglobin Concent 30.8 L Red Cell Distribution Width 17.2 H Platelet Count 561 H Mean Platelet Volume 9.0 Neutrophils % 66.9 Lymphocytes % 20.4 Monocytes % 8.9 Eosinophils % 3.1 Basophils % 0.5 Nucleated Red Blood Cells % 0.0 Neutrophils # 5.7 Lymphocytes # 1.7 Monocytes # 0.8 Eosinophils # 0.3 Basophils # 0.0 Nucleated Red Blood Cells # 0.0 Pathologist Review (Hematology) YES Prothrombin Time 19.7 H Prothrombin Time Ratio 1.5 INR International Normalized Ratio 1.66 Activated Partial Thromboplast Time 63.9 H Sodium Level 136 Potassium Level 3.6 Chloride Level 102 Carbon Dioxide Level 31 Anion Gap 7 L Blood Urea Nitrogen 14 Creatinine 0.27 L Glucose Level 78 Calcium Level 7.7 L Total Bilirubin 0.1 L Direct Bilirubin 0.00 Indirect Bilirubin 0.1 Aspartate Amino Transf (AST/SGOT) 18 Alanine Aminotransferase (ALT/SGPT) 25 Alkaline Phosphatase 124 H Total Protein 6.4 Albumin 2.1 L Globulin 4.30 H Albumin/Globulin Ratio 0.48 Medications Medications Current Medications Alprazolam (Xanax) 0.5 mg Q8H PRN GTB ANXIETY Last administered on 11/28/16 10:55; Admin Dose 0.5 MG; Start 11/17/16 at 03:00 Bisacodyl (Dulcolax Supp) 10 mg DAILY [place] ; Start 11/17/16 at 09:00 Senna (Senokot) 1 tab DAILY PRN GTB CONSTIPATION Last administered on 08:15; Admin Dose 1 TAB; Start 11/17/16 at 03:00 Eye Lubricant (Artificial Tears Oph) 1 drop TID PRN BOTH EYES DRY EYES; Start 11/17/16 at 03:00 Miscellaneous Information (Pending [facility] Order For Wound Care) This patient ames... PRN PRN XX WOUND CARE; Start 11/17/16 at 04:30 Morphine Sulfate (morphine) 2 mg Q2H PRN IV pain Last administered on 02:03; Admin Dose 2 MG; Start 11/17/16 at 10:30 Ondansetron HCl (Zofran Inj) 4 mg Q4H PRN IV NAUSEA AND/OR VOMITING Last administered on 11/18/16 14:41; Admin Dose 4 MG; Start 11/17/16 at 11:00 Apixaban (Eliquis) 5 mg BID GTB Last administered on 11/29/16 21:16; Admin Dose 5 MG; Start 11/20/16 at 21:00 Hydrocortisone (Hydrocortisone 1% Cr) 1 applic BID TOP Last administered on 21:23; Admin Dose 1 APPLIC; Start 11/23/16 at 17:00 Acetaminophen/ Hydrocodone Bitart ([place] (325)) 1 tab Q4H PRN GTB Moderate PAIN Last administered on 11/30/16 09:59; Admin Dose 1 TAB; Start 11/29/16 at 11:00 Acetaminophen/ Hydrocodone Bitart ([place] (325)) 2 tab Q4H PRN GTB Severe pain ; Start 11/29/16 at 11:00 KEE ESPINOZA Nov 30, 2016 11:52
[2016-11-30] MEDS: morphine 2 MG INJ IV PRN ×2 (13:14→22:24)
[2016-11-30 14:34] LABS: BASOPHILS % 0.2 % (0.0-2.0); EOSINOPHILS # 0.2 10^3/ul (0.0-0.5); EOSINOPHILS % 2.2 % (0.0-7.0); HEMATOCRIT 25.9 % (37.0-47.0); HEMOGLOBIN 7.6 g/dl (12.0-16.0); LYMPHOCYTES # 1.8 10^3/ul (0.8-2.9); LYMPHOCYTES % 21.3 % (15.0-51.0); MEAN CORPUSCULAR HEMOGLOBIN 26.9 pg (29.0-33.0); MEAN CORPUSCULAR HGB CONC 29.3 g/dl (32.0-37.0); MEAN CORPUSCULAR VOLUME 91.5 fl (82.0-101.0); MEAN PLATELET VOLUME 10.3 fl (7.4-10.4); MONOCYTE # 0.7 10^3/ul (0.3-0.9); MONOCYTES % 8.9 % (0.0-11.0); NEUTROPHIL # 5.6 10^3/ul (1.6-7.5); PLATELET COUNT 426 10^3/UL (140-415); RED BLOOD COUNT 2.83 10^6/ul (4.20-5.40); RED CELL DISTRIBUTION WIDTH 17.2 % (11.5-14.5); WHITE BLOOD COUNT 8.3 10^3/ul (4.8-10.8)
[2016-11-30] MEDS: APIXABAN 5 MG TABLET GTB SCH ×2 (16:09→20:07)
--- NOTE | 2016-11-30 18:48 | PN ---
Date/Time of Note Date/Time of Note DATE: 11/30/16 TIME: 18:47 Assessment/Plan VTE Prophylaxis VTE Prophylaxis Intervention: SCD's, other (Epixiban ) Lines/Catheters IV Catheter Type (from Nrsg): [place] Urinary Cath still in place: Yes Reason Cath still needed: skin wounds contaminated by urine Assessment/Plan Assessment/Plan 61 yo female with ALS, Deafness, chronic respiratory failure on MV, recent trach , systolic CHF who was discharged from [place] this AM followign prolonged hospitalization there for respiratoyr failure for which she recieved abx and trach was placed. Sent from SNF for possible complaint of CP. Found to have hypokalemia and chronic CHF Hypokalemia: - Resolved Acute on chronic CHF exacerbation: - Continue lasix diuresis ALS leading to chronic respiratory failure - Continue MV Anemia: - Likely of chronic disease H/u UE DVT: - Apixiban course pt family appealed discharged plan to SNF, currently discharged order with medication reconciliation done - whatever decision comes out of appeal, will plan accordingly change [place] 10/325 to 1 tab Q 4 hr prn moderate pain and 2 tablets PO Q 4 hr prn severe pain repeat Hb 7.6- will monitor it and plan for PRBC prn low Hb DNR Subjective 24 Hr Interval Summary Free Text/Dictation Hb 6.6, repeat one is 7.6, BP stable, Exam/Review of Systems Vital Signs Vitals Vital Signs Date Time Temp Pulse Resp B/P Pulse Ox O2 Delivery O2 Flow Rate FiO2 11/30/16 17:23 92 18 97 35 11/30/16 15:48 97.8 95/59 Intake and Output 11/29/16 11/29/16 11/30/16 15:00 23:00 07:00 Intake Total 500 ml Output Total 800 ml Balance -300 ml Exam Constitutional: alert, + tracheostomy Respiratory: clear to auscultation Cardiovascular: regular rate and rhythm Gastrointestinal: soft, No distended Musculoskeletal: nl extremities to inspection Results Result Diagram: 11/30/16 1338 11/30/16 0525 Results 24 hrs Laboratory Tests Test 11/30/16 05:25 11/30/16 13:38 White Blood Count 8.4 8.3 Red Blood Count 2.38 L 2.83 L Hemoglobin 6.6 #*L 7.6 L Hematocrit 21.4 #L 25.9 #L Mean Corpuscular Volume 89.9 91.5 Mean Corpuscular Hemoglobin 27.7 L 26.9 L Mean Corpuscular Hemoglobin Concent 30.8 L 29.3 L Red Cell Distribution Width 17.2 H 17.2 H Platelet Count 561 H 426 #H Mean Platelet Volume 9.0 10.3 Neutrophils % 66.9 67.0 Lymphocytes % 20.4 21.3 Monocytes % 8.9 8.9 Eosinophils % 3.1 2.2 Basophils % 0.5 0.2 Nucleated Red Blood Cells % 0.0 0.0 Neutrophils # 5.7 5.6 Lymphocytes # 1.7 1.8 Monocytes # 0.8 0.7 Eosinophils # 0.3 0.2 Basophils # 0.0 0.0 Nucleated Red Blood Cells # 0.0 0.0 Pathologist Review (Hematology) YES Prothrombin Time 19.7 H Prothrombin Time Ratio 1.5 INR International Normalized Ratio 1.66 Activated Partial Thromboplast Time 63.9 H Sodium Level 136 Potassium Level 3.6 Chloride Level 102 Carbon Dioxide Level 31 Anion Gap 7 L Blood Urea Nitrogen 14 Creatinine 0.27 L Glucose Level 78 Calcium Level 7.7 L Total Bilirubin 0.1 L Direct Bilirubin 0.00 Indirect Bilirubin 0.1 Aspartate Amino Transf (AST/SGOT) 18 Alanine Aminotransferase (ALT/SGPT) 25 Alkaline Phosphatase 124 H Total Protein 6.4 Albumin 2.1 L Globulin 4.30 H Albumin/Globulin Ratio 0.48 Medications Medications Current Medications Alprazolam (Xanax) 0.5 mg Q8H PRN GTB ANXIETY Last administered on 11/28/16 10:55; Admin Dose 0.5 MG; Start 11/17/16 at 03:00 Bisacodyl (Dulcolax Supp) 10 mg DAILY [place] ; Start 11/17/16 at 09:00 Senna (Senokot) 1 tab DAILY PRN GTB CONSTIPATION Last administered on 08:15; Admin Dose 1 TAB; Start 11/17/16 at 03:00 Eye Lubricant (Artificial Tears Oph) 1 drop TID PRN BOTH EYES DRY EYES; Start 11/17/16 at 03:00 Miscellaneous Information (Pending [facility] Order For Wound Care) This patient ames... PRN PRN XX WOUND CARE; Start 11/17/16 at 04:30 Morphine Sulfate (morphine) 2 mg Q2H PRN IV pain Last administered on 13:14; Admin Dose 2 MG; Start 11/17/16 at 10:30 Ondansetron HCl (Zofran Inj) 4 mg Q4H PRN IV NAUSEA AND/OR VOMITING Last administered on 11/18/16 14:41; Admin Dose 4 MG; Start 11/17/16 at 11:00 Apixaban (Eliquis) 5 mg BID GTB Last administered on 11/30/16 16:09; Admin Dose 5 MG; Start 11/20/16 at 21:00 Hydrocortisone (Hydrocortisone 1% Cr) 1 applic BID TOP Last administered on 21:23; Admin Dose 1 APPLIC; Start 11/23/16 at 17:00 Acetaminophen/ Hydrocodone Bitart ([place] (10/325)) 1 tab Q4H PRN GTB Moderate PAIN Last administered on 11/30/16 09:59; Admin Dose 1 TAB; Start 11/29/16 at 11:00 Acetaminophen/ Hydrocodone Bitart ([place] (10/325)) 2 tab Q4H PRN GTB Severe pain Last administered on 11/30/16 16:10; Admin Dose 2 TAB; Start 11/29/16 at 11:00 MUSTAPHA BUSTOS MD Nov 30, 2016 18:48
[2016-12-01] VITALS (28 sets, daily range): BP systolic 91–115; BP diastolic 55–62; PULSE 75–110; RESP 16–18
[2016-12-01] MEDS: HYDROCODONE/APAP (10/325) TAB GTB PRN ×5 (00:26→21:37)
[2016-12-01] MEDS: ALBUTEROL 18 GM INHALER INH SCH ×6 (01:32→22:04)
[2016-12-01] MEDS: IPRATROPIUM (HFA) 12.9 GM INHALER INH SCH ×6 (01:32→22:04)
[2016-12-01] MEDS: morphine 2 MG INJ IV PRN ×6 (03:42→19:44)
[2016-12-01] MEDS: FUROSEMIDE 20 MG INJ IV SCH (06:00)
[2016-12-01] MEDS: BISACODYL 10 MG SUPP PR SCH (09:00)
[2016-12-01] MEDS: HYDROCORTISONE 1% 28 GM CR TOP SCH ×2 (09:00→21:36)
[2016-12-01] MEDS: APIXABAN 5 MG TABLET GTB SCH ×2 (09:33→21:35)
[2016-12-01 10:49] LABS: BASOPHILS % 0.5 % (0.0-2.0); EOSINOPHILS # 0.3 10^3/ul (0.0-0.5); EOSINOPHILS % 3.2 % (0.0-7.0); HEMATOCRIT 23.2 % (37.0-47.0); LYMPHOCYTES # 1.2 10^3/ul (0.8-2.9); LYMPHOCYTES % 13.8 % (15.0-51.0); MEAN CORPUSCULAR HEMOGLOBIN 27.7 pg (29.0-33.0); MEAN CORPUSCULAR HGB CONC 30.2 g/dl (32.0-37.0); MEAN CORPUSCULAR VOLUME 91.7 fl (82.0-101.0); MEAN PLATELET VOLUME 8.6 fl (7.4-10.4); MONOCYTE # 0.7 10^3/ul (0.3-0.9); NEUTROPHIL # 6.3 10^3/ul (1.6-7.5); PLATELET COUNT 543 10^3/UL (140-415); RED BLOOD COUNT 2.53 10^6/ul (4.20-5.40); WHITE BLOOD COUNT 8.6 10^3/ul (4.8-10.8)
--- NOTE | 2016-12-01 17:07 | PN ---
Date/Time of Note Date/Time of Note DATE: 12/01/16 TIME: 17:05 Assessment/Plan VTE Prophylaxis VTE Prophylaxis Intervention: other Lines/Catheters IV Catheter Type (from Nrsg): Saline Lock Urinary Cath still in place: Yes Reason Cath still needed: urinary retention Assessment/Plan Chief Complaint/Hosp Course 61 yo female with ALS, Deafness, chronic respiratory failure on MV, recent trach , systolic CHF who was discharged from [facility] this AM followign prolonged hospitalization there for respiratoyr failure for which she recieved abx and trach was placed. Sent from [facility] for possible complaint of CP. 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 Awaiting decision on placement Volume status is much better than on admission Exam/Review of Systems Vital Signs Vitals Vital Signs Date Time Temp Pulse Resp B/P Pulse Ox O2 Delivery O2 Flow Rate FiO2 12/01/16 16:06 98 12/01/16 16:02 98.1 17 104/55 98 12/01/16 13:35 35 Intake and Output 11/30/16 11/30/16 12/01/16 15:00 23:00 07:00 Intake Total 450 ml 660 ml 450 ml Output Total 700 ml 600 ml 550 ml Balance -250 ml 60 ml -100 ml Exam ALS on vent/trach Flaccid/weak throughout Can wiggle toes b/l 1/5 in legs Results Result Diagram: 12/01/16 1029 11/30/16 0525 Results 24 hrs Laboratory Tests Test 12/01/16 10:29 White Blood Count 8.6 Red Blood Count 2.53 L Hemoglobin 7.0 L Hematocrit 23.2 L Mean Corpuscular Volume 91.7 Mean Corpuscular Hemoglobin 27.7 L Mean Corpuscular Hemoglobin Concent 30.2 L Red Cell Distribution Width 17.0 H Platelet Count 543 #H Mean Platelet Volume 8.6 Neutrophils % 74.0 Lymphocytes % 13.8 L Monocytes % 8.0 Eosinophils % 3.2 Basophils % 0.5 Nucleated Red Blood Cells % 0.0 Neutrophils # 6.3 Lymphocytes # 1.2 Monocytes # 0.7 Eosinophils # 0.3 Basophils # 0.0 Nucleated Red Blood Cells # 0.0 Medications Medications Current Medications Alprazolam (Xanax) 0.5 mg Q8H PRN GTB ANXIETY Last administered on 11/28/16 10:55; Admin Dose 0.5 MG; Start 11/17/16 at 03:00 Bisacodyl (Dulcolax Supp) 10 mg DAILY [place] ; Start 11/17/16 at 09:00 Senna (Senokot) 1 tab DAILY PRN GTB CONSTIPATION Last administered on 08:15; Admin Dose 1 TAB; Start 11/17/16 at 03:00 Eye Lubricant (Artificial Tears Oph) 1 drop TID PRN BOTH EYES DRY EYES; Start 11/17/16 at 03:00 Miscellaneous Information (Pending [facility] Order For Wound Care) This patient ames... PRN PRN XX WOUND CARE; Start 11/17/16 at 04:30 Morphine Sulfate (morphine) 2 mg Q2H PRN IV pain Last administered on 16:12; Admin Dose 2 MG; Start 11/17/16 at 10:30 Ondansetron HCl (Zofran Inj) 4 mg Q4H PRN IV NAUSEA AND/OR VOMITING Last administered on 11/18/16 14:41; Admin Dose 4 MG; Start 11/17/16 at 11:00 Apixaban (Eliquis) 5 mg BID GTB Last administered on 12/01/16 09:33; Admin Dose 5 MG; Start 11/20/16 at 21:00 Hydrocortisone (Hydrocortisone 1% Cr) 1 applic BID TOP Last administered on 21:23; Admin Dose 1 APPLIC; Start 11/23/16 at 17:00 Acetaminophen/ Hydrocodone Bitart ([place] (10/325)) 1 tab Q4H PRN GTB Moderate PAIN Last administered on 12/01/16 05:12; Admin Dose 1 TAB; Start 11/29/16 at 11:00 Acetaminophen/ Hydrocodone Bitart ([place] (10/325)) 2 tab Q4H PRN GTB Severe pain Last administered on 12/01/16 14:05; Admin Dose 2 TAB; Start 11/29/16 at 11:00 LANA SHARMA MD Dec 01, 2016 17:07
--- NOTE | 2016-12-01 18:14 | CONS ---
Date/Time of Note Date/Time of Note DATE: 12/01/16 TIME: 18:13 Consult Date/Type/Reason Admit Date/Time Nov 16, 2016 at 17:39 Initial Consult Date 11/20/16 Type of Consultation: Pulmonary Subjective No events. Objective Vital Signs Date Time Temp Pulse Resp B/P Pulse Ox O2 Delivery O2 Flow Rate FiO2 12/01/16 17:10 91 18 97 35 12/01/16 16:02 98.1 104/55 Intake and Output 11/30/16 11/30/16 12/01/16 15:00 23:00 07:00 Intake Total 450 ml 660 ml 450 ml Output Total 700 ml 600 ml 550 ml Balance -250 ml 60 ml -100 ml Exam HEENT: Neck supple; no JVD; no LAD; + trach CVS: RRR, S1 and S2 CHEST: Clear ABD: Soft, NT, + BS EXT: No c/c/e Results/Medications Result Diagram: 12/01/16 1029 11/30/16 0525 Results 24 hrs Laboratory Tests Test 12/01/16 10:29 White Blood Count 8.6 Red Blood Count 2.53 L Hemoglobin 7.0 L Hematocrit 23.2 L Mean Corpuscular Volume 91.7 Mean Corpuscular Hemoglobin 27.7 L Mean Corpuscular Hemoglobin Concent 30.2 L Red Cell Distribution Width 17.0 H Platelet Count 543 #H Mean Platelet Volume 8.6 Neutrophils % 74.0 Lymphocytes % 13.8 L Monocytes % 8.0 Eosinophils % 3.2 Basophils % 0.5 Nucleated Red Blood Cells % 0.0 Neutrophils # 6.3 Lymphocytes # 1.2 Monocytes # 0.7 Eosinophils # 0.3 Basophils # 0.0 Nucleated Red Blood Cells # 0.0 Medications Current Medications Alprazolam (Xanax) 0.5 mg Q8H PRN GTB ANXIETY Last administered on 11/28/16 10:55; Admin Dose 0.5 MG; Start 11/17/16 at 03:00 Bisacodyl (Dulcolax Supp) 10 mg DAILY [place] ; Start 11/17/16 at 09:00 Senna (Senokot) 1 tab DAILY PRN GTB CONSTIPATION Last administered on 08:15; Admin Dose 1 TAB; Start 11/17/16 at 03:00 Eye Lubricant (Artificial Tears Oph) 1 drop TID PRN BOTH EYES DRY EYES; Start 11/17/16 at 03:00 Miscellaneous Information (Pending Santyl Order For Wound Care) This patient ames... PRN PRN XX WOUND CARE; Start 11/17/16 at 04:30 Morphine Sulfate (morphine) 2 mg Q2H PRN IV pain Last administered on 16:12; Admin Dose 2 MG; Start 11/17/16 at 10:30 Ondansetron HCl (Zofran Inj) 4 mg Q4H PRN IV NAUSEA AND/OR VOMITING Last administered on 11/18/16 14:41; Admin Dose 4 MG; Start 11/17/16 at 11:00 Apixaban (Eliquis) 5 mg BID GTB Last administered on 12/01/16 09:33; Admin Dose 5 MG; Start 11/20/16 at 21:00 Hydrocortisone (Hydrocortisone 1% Cr) 1 applic BID TOP Last administered on 21:23; Admin Dose 1 APPLIC; Start 11/23/16 at 17:00 Acetaminophen/ Hydrocodone Bitart ([place] (10/325)) 1 tab Q4H PRN GTB Moderate PAIN Last administered on 12/01/16 17:20; Admin Dose 1 TAB; Start 11/29/16 at 11:00 Acetaminophen/ Hydrocodone Bitart ([place] (10/325)) 2 tab Q4H PRN GTB Severe pain Last administered on 12/01/16 14:05; Admin Dose 2 TAB; Start 11/29/16 at 11:00 Furosemide (Lasix) 40 mg DAILY GTB ; Start 12/02/16 at 09:00 Assessment/Plan Additional Assessment/Plan IMP: 1. Chronic Resp Failure/Vent/due to ALS 2. CHF 3. Anemia RECS: 1. Stable for transfer to [facility] JINNY ROE MD Dec 01, 2016 18:14
[2016-12-01] MEDS ORDERED: SOD CHLORIDE 0.9% 250 ML IV* ONE ×2 (21:46→21:51)
[2016-12-02] VITALS (23 sets, daily range): BP systolic 97–126; BP diastolic 55–69; PULSE 84–110; RESP 16–20
[2016-12-02] MEDS: morphine 2 MG INJ IV PRN ×6 (00:09→20:44)
[2016-12-02] MEDS: ALBUTEROL 18 GM INHALER INH SCH ×6 (01:00→21:34)
[2016-12-02] MEDS: IPRATROPIUM (HFA) 12.9 GM INHALER INH SCH ×6 (01:00→21:33)
[2016-12-02] MEDS: HYDROCODONE/APAP (10/325) TAB GTB PRN ×2 (02:38→22:33)
[2016-12-02] MEDS: HYDROCORTISONE 1% 28 GM CR TOP SCH ×2 (09:00→20:48)
[2016-12-02] MEDS: BISACODYL 10 MG SUPP PR SCH (09:00)
[2016-12-02] MEDS: APIXABAN 5 MG TABLET GTB SCH ×2 (09:55→20:47)
[2016-12-02] MEDS: FUROSEMIDE 40 MG TAB GTB SCH (10:11)
--- NOTE | 2016-12-02 15:47 | PN ---
Date/Time of Note Date/Time of Note DATE: 12/02/16 TIME: 15:46 Assessment/Plan VTE Prophylaxis VTE Prophylaxis Intervention: LMWH, other Lines/Catheters IV Catheter Type (from Nrsg): Saline Lock Urinary Cath still in place: Yes Reason Cath still needed: urinary retention Assessment/Plan Chief Complaint/Hosp Course 61 yo female with ALS, Deafness, chronic respiratory failure on MV, recent trach , systolic CHF who was discharged from [place] this AM followign prolonged hospitalization there for respiratoyr failure for which she recieved abx and trach was placed. Sent from [facility] for possible complaint of CP. Found to have hypokalemia and chronic CHF Hypokalemia: - Resolved Acute on chronic CHF exacerbation: - Continue maintenance lasix 40 daily ALS leading to chronic respiratory failure - Continue MV Anemia: - Likely of chronic disease - Transfuse > 7 PRN H/u UE DVT: - Apixiban course Patient stable for discharge to [facility] DNR Problems: Subjective 24 Hr Interval Summary Free Text/Dictation No change to clinical status Awaiting placement decision Exam/Review of Systems Vital Signs Vitals Vital Signs Date Time Temp Pulse Resp B/P Pulse Ox O2 Delivery O2 Flow Rate FiO2 12/02/16 13:00 95 18 96 35 12/02/16 11:00 97.6 113/58 Intake and Output 12/01/16 12/01/16 12/02/16 15:00 23:00 07:00 Intake Total 460 ml 660 ml Output Total 550 ml 450 ml Balance -90 ml 210 ml Results Result Diagram: 12/01/16 1029 11/30/16 0525 Medications Medications Current Medications Alprazolam (Xanax) 0.5 mg Q8H PRN GTB ANXIETY Last administered on 11/28/16 10:55; Admin Dose 0.5 MG; Start 11/17/16 at 03:00 Bisacodyl (Dulcolax Supp) 10 mg DAILY [place] ; Start 11/17/16 at 09:00 Senna (Senokot) 1 tab DAILY PRN GTB CONSTIPATION Last administered on 08:15; Admin Dose 1 TAB; Start 11/17/16 at 03:00 Eye Lubricant (Artificial Tears Oph) 1 drop TID PRN BOTH EYES DRY EYES; Start 11/17/16 at 03:00 Miscellaneous Information (Pending Santyl Order For Wound Care) This patient ames... PRN PRN XX WOUND CARE; Start 11/17/16 at 04:30 Morphine Sulfate (morphine) 2 mg Q2H PRN IV pain Last administered on 09:53; Admin Dose 2 MG; Start 11/17/16 at 10:30 Ondansetron HCl (Zofran Inj) 4 mg Q4H PRN IV NAUSEA AND/OR VOMITING Last administered on 11/18/16 14:41; Admin Dose 4 MG; Start 11/17/16 at 11:00 Apixaban (Eliquis) 5 mg BID GTB Last administered on 12/02/16 09:55; Admin Dose 5 MG; Start 11/20/16 at 21:00 Hydrocortisone (Hydrocortisone 1% Cr) 1 applic BID TOP Last administered on 21:36; Admin Dose 1 APPLIC; Start 11/23/16 at 17:00 Acetaminophen/ Hydrocodone Bitart ([place] (10/325)) 1 tab Q4H PRN GTB Moderate PAIN Last administered on 12/01/16 17:20; Admin Dose 1 TAB; Start 11/29/16 at 11:00 Acetaminophen/ Hydrocodone Bitart ([place] (10/325)) 2 tab Q4H PRN GTB Severe pain Last administered on 12/02/16 02:38; Admin Dose 2 TAB; Start 11/29/16 at 11:00 Furosemide (Lasix) 40 mg DAILY GTB Last administered on 12/02/16 10:11; Admin Dose 40 MG; Start 12/02/16 at 09:00 LANA SHARMA MD Dec 02, 2016 15:47
--- NOTE | 2016-12-02 16:50 | CONS ---
Date/Time of Note Date/Time of Note DATE: 12/02/16 TIME: 16:49 Consult Date/Type/Reason Admit Date/Time Nov 16, 2016 at 17:39 Initial Consult Date 11/20/16 Type of Consultation: Pulmonary Subjective No events. Stable on the vent. Objective Vital Signs Date Time Temp Pulse Resp B/P Pulse Ox O2 Delivery O2 Flow Rate FiO2 12/02/16 16:22 106 12/02/16 15:15 18 97 35 12/02/16 15:00 97.8 109/61 Intake and Output 12/01/16 12/01/16 12/02/16 15:00 23:00 07:00 Intake Total 460 ml 660 ml Output Total 550 ml 450 ml Balance -90 ml 210 ml Exam HEENT: Neck supple; no JVD; no LAD; + trach CVS: RRR, S1 and S2 CHEST: Clear ABD: Soft, NT, + BS EXT: No c/c/e Results/Medications Result Diagram: 12/01/16 1029 11/30/16 0525 Medications Current Medications Alprazolam (Xanax) 0.5 mg Q8H PRN GTB ANXIETY Last administered on 11/28/16 10:55; Admin Dose 0.5 MG; Start 11/17/16 at 03:00 Bisacodyl (Dulcolax Supp) 10 mg DAILY [place] ; Start 11/17/16 at 09:00 Senna (Senokot) 1 tab DAILY PRN GTB CONSTIPATION Last administered on 08:15; Admin Dose 1 TAB; Start 11/17/16 at 03:00 Eye Lubricant (Artificial Tears Oph) 1 drop TID PRN BOTH EYES DRY EYES; Start 11/17/16 at 03:00 Miscellaneous Information (Pending Santyl Order For Wound Care) This patient ames... PRN PRN XX WOUND CARE; Start 11/17/16 at 04:30 Morphine Sulfate (morphine) 2 mg Q2H PRN IV pain Last administered on 16:29; Admin Dose 2 MG; Start 11/17/16 at 10:30 Ondansetron HCl (Zofran Inj) 4 mg Q4H PRN IV NAUSEA AND/OR VOMITING Last administered on 11/18/16 14:41; Admin Dose 4 MG; Start 11/17/16 at 11:00 Apixaban (Eliquis) 5 mg BID GTB Last administered on 12/02/16 09:55; Admin Dose 5 MG; Start 11/20/16 at 21:00 Hydrocortisone (Hydrocortisone 1% Cr) 1 applic BID TOP Last administered on 21:36; Admin Dose 1 APPLIC; Start 11/23/16 at 17:00 Acetaminophen/ Hydrocodone Bitart ([place] (10/325)) 1 tab Q4H PRN GTB Moderate PAIN Last administered on 12/01/16 17:20; Admin Dose 1 TAB; Start 11/29/16 at 11:00 Acetaminophen/ Hydrocodone Bitart ([place] (10/325)) 2 tab Q4H PRN GTB Severe pain Last administered on 12/02/16 02:38; Admin Dose 2 TAB; Start 11/29/16 at 11:00 Furosemide (Lasix) 40 mg DAILY GTB Last administered on 12/02/16 10:11; Admin Dose 40 MG; Start 12/02/16 at 09:00 Assessment/Plan Additional Assessment/Plan IMP: 1. Chronic Resp Failure/Vent/due to ALS 2. CHF 3. Anemia RECS: 1. Stable for transfer to subacute 2. Vent support. JINNY ROE MD Dec 02, 2016 16:50
[2016-12-03] VITALS (19 sets, daily range): BP systolic 104–133; BP diastolic 63–74; PULSE 76–95; RESP 8–20
[2016-12-03] MEDS: IPRATROPIUM (HFA) 12.9 GM INHALER INH SCH ×5 (01:15→17:37)
[2016-12-03] MEDS: ALBUTEROL 18 GM INHALER INH SCH ×5 (01:15→17:37)
[2016-12-03] MEDS: morphine 2 MG INJ IV PRN ×6 (01:17→15:15)
[2016-12-03 07:12] LABS: BASOPHIL # 0.1 10^3/ul (0.0-0.1); BASOPHILS % 0.7 % (0.0-2.0); EOSINOPHILS # 0.2 10^3/ul (0.0-0.5); EOSINOPHILS % 2.6 % (0.0-7.0); HEMATOCRIT 32.2 % (37.0-47.0); HEMOGLOBIN 10.3 g/dl (12.0-16.0); LYMPHOCYTES # 1.5 10^3/ul (0.8-2.9); LYMPHOCYTES % 17.7 % (15.0-51.0); MEAN CORPUSCULAR HEMOGLOBIN 28.7 pg (29.0-33.0); MEAN CORPUSCULAR VOLUME 89.7 fl (82.0-101.0); MEAN PLATELET VOLUME 8.7 fl (7.4-10.4); MONOCYTE # 0.6 10^3/ul (0.3-0.9); MONOCYTES % 7.5 % (0.0-11.0); NEUTROPHIL # 6.1 10^3/ul (1.6-7.5); NEUTROPHILS % 71.1 % (39.0-77.0); PLATELET COUNT 581 10^3/UL (140-415); RED BLOOD COUNT 3.59 10^6/ul (4.20-5.40); WHITE BLOOD COUNT 8.5 10^3/ul (4.8-10.8)
[2016-12-03 07:37] LABS: ALBUMIN 2.7 g/dl (3.3-4.9); ALBUMIN/GLOBULIN RATIO 0.62; BILIRUBIN,INDIRECT 0.3 mg/dl (0-1.1); BILIRUBIN,TOTAL 0.3 mg/dl (0.2-1.3); CALCIUM 7.8 mg/dl (8.4-10.2); CREATININE 0.28 mg/dl (0.44-1.00); POTASSIUM 3.8 mmol/L (3.5-5.1)
[2016-12-03] MEDS: BISACODYL 10 MG SUPP PR SCH (09:00)
[2016-12-03] MEDS: HYDROCORTISONE 1% 28 GM CR TOP SCH (09:48)
[2016-12-03] MEDS: FUROSEMIDE 40 MG TAB GTB SCH (09:49)
[2016-12-03] MEDS: APIXABAN 5 MG TABLET GTB SCH (09:49)
[2016-12-03] MEDS: SENNA TAB GTB PRN (12:54)
--- NOTE | 2016-12-03 14:59 | CONS ---
Date/Time of Note Date/Time of Note DATE: 12/03/16 TIME: 14:58 Consult Date/Type/Reason Admit Date/Time Nov 16, 2016 at 17:39 Initial Consult Date 11/20/16 Type of Consultation: Pulmonary Subjective Patient comfortable. Objective Vital Signs Date Time Temp Pulse Resp B/P Pulse Ox O2 Delivery O2 Flow Rate FiO2 12/03/16 13:34 90 18 98 35 12/03/16 13:04 97.8 104/63 Intake and Output 12/02/16 12/02/16 12/03/16 14:59 22:59 06:59 Intake Total 460 ml 880 ml Output Total 2150 ml 450 ml Balance -1690 ml 430 ml Exam GENERAL: VITAL SIGNS: per chart NECK: Supple. No JVD or lymphadenopathy. CARDIAC EXAM: S1, S2. No added sounds or murmurs. CHEST: clear bilaterally, No added sounds, rales or wheezes ABDOMEN: Soft, nontender. No guarding or rebound. EXTREMITIES: No cyanosis, clubbing or edema. NEUROLOGIC: Generalized weakness. No focal deficits. Results/Medications Result Diagram: 12/03/16 0640 12/03/16 0640 Results 24 hrs Laboratory Tests Test 12/03/16 06:40 White Blood Count 8.5 Red Blood Count 3.59 #L Hemoglobin 10.3 #L Hematocrit 32.2 #L Mean Corpuscular Volume 89.7 Mean Corpuscular Hemoglobin 28.7 L Mean Corpuscular Hemoglobin Concent 32.0 Red Cell Distribution Width 16.0 H Platelet Count 581 H Mean Platelet Volume 8.7 Neutrophils % 71.1 Lymphocytes % 17.7 Monocytes % 7.5 Eosinophils % 2.6 Basophils % 0.7 Nucleated Red Blood Cells % 0.0 Neutrophils # 6.1 Lymphocytes # 1.5 Monocytes # 0.6 Eosinophils # 0.2 Basophils # 0.1 Nucleated Red Blood Cells # 0.0 Sodium Level 138 Potassium Level 3.8 Chloride Level 102 Carbon Dioxide Level 28 Anion Gap 12 Blood Urea Nitrogen 12 Creatinine 0.28 L Glucose Level 68 L Calcium Level 7.8 L Total Bilirubin 0.3 Direct Bilirubin 0.00 Indirect Bilirubin 0.3 Aspartate Amino Transf (AST/SGOT) 21 Alanine Aminotransferase (ALT/SGPT) 24 Alkaline Phosphatase 133 H Total Protein 7.0 Albumin 2.7 L Globulin 4.30 H Albumin/Globulin Ratio 0.62 Medications Current Medications Alprazolam (Xanax) 0.5 mg Q8H PRN GTB ANXIETY Last administered on 11/28/16 10:55; Admin Dose 0.5 MG; Start 11/17/16 at 03:00 Bisacodyl (Dulcolax Supp) 10 mg DAILY [place] ; Start 11/17/16 at 09:00 Senna (Senokot) 1 tab DAILY PRN GTB CONSTIPATION Last administered on 12:54; Admin Dose 1 TAB; Start 11/17/16 at 03:00 Eye Lubricant (Artificial Tears Oph) 1 drop TID PRN BOTH EYES DRY EYES; Start 11/17/16 at 03:00 Miscellaneous Information (Pending [facility] Order For Wound Care) This patient ames... PRN PRN XX WOUND CARE; Start 11/17/16 at 04:30 Morphine Sulfate (morphine) 2 mg Q2H PRN IV pain Last administered on 12:54; Admin Dose 2 MG; Start 11/17/16 at 10:30 Ondansetron HCl (Zofran Inj) 4 mg Q4H PRN IV NAUSEA AND/OR VOMITING Last administered on 11/18/16 14:41; Admin Dose 4 MG; Start 11/17/16 at 11:00 Apixaban (Eliquis) 5 mg BID GTB Last administered on 12/03/16 09:49; Admin Dose 5 MG; Start 11/20/16 at 21:00 Hydrocortisone (Hydrocortisone 1% Cr) 1 applic BID TOP Last administered on 09:48; Admin Dose 1 APPLIC; Start 11/23/16 at 17:00 Acetaminophen/ Hydrocodone Bitart ([place] (10/325)) 1 tab Q4H PRN GTB Moderate PAIN Last administered on 12/01/16 17:20; Admin Dose 1 TAB; Start 11/29/16 at 11:00 Acetaminophen/ Hydrocodone Bitart ([place] (10/325)) 2 tab Q4H PRN GTB Severe pain Last administered on 12/02/16 22:33; Admin Dose 2 TAB; Start 11/29/16 at 11:00 Furosemide (Lasix) 40 mg DAILY GTB Last administered on 12/03/16 09:49; Admin Dose 40 MG; Start 12/02/16 at 09:00 Assessment/Plan Chief Complaint/Hosp Course IMP: 1. Chronic Resp Failure/Vent/due to ALS 2. CHF 3. Anemia RECS: 1. Stable for transfer to subacute 2. Vent support. DC planning okay from primary standpoint Problems: AURY PIZANO MD, [facility] Dec 03, 2016 14:59
[2016-12-03] MEDS: HYDROCODONE/APAP (10/325) TAB GTB PRN (16:28)
--- NOTE | 2016-12-05 14:22 | DS ---
Date/Time of Note Date/Time of Note DATE: 12/05/16 TIME: 14:19 Discharge Summary Admission/Discharge Info Admit Date/Time Nov 16, 2016 at 17:39 Discharge Date/Time Dec 03, 2016 at 20:08 Discharge Diagnosis 1. Advanced ALS with acute on chronic respiratory failure status post tracheostomy on vent-stable Status post antibiotics for possible pneumonia 2. Chest pain secondary to pneumonia and pleural effusions-resolved pain control with [place] Echo shows an EF of 50% Troponin negative, EKG without signs of ischemia 3. Deafness 4. Anemia likely of chronic disease 5. History of upper extremity DVT Changed Eliquis to 5 twice daily Patient Condition: Fair Hospital Course Patient is a 61 yo female with a h/o systolic CHF with an EF of 35%, upper extremity DVT on Eliquis, ALS as well as deafness presenting with report of chest pain. ACS ruled out, patient was seen by pulmonology and was continued on ventilator. Patient was given a course of antibiotics for possible pneumonia. Patient's pain was controlled with morphine and Coventry. It appeared the patient had anxiety at the previous assisted and chest pain was likely secondary to anxiety. After discussion with the family it was decided that patient will go to an LTAC and ultimately will return home once arrangements are made by family to be able to care for at home with nursing staff. The day of discharge patient's vitals, labs and physical exam stable she had no further acute issues. Home Meds Active Scripts Hydrocodone Bit-Acetaminophen (Hydrocodone Bit-APAP) 5-325MG Tablet, 1 TAB GTB Q4H Y for PAIN, #30 TAB Prov:PATRICK NEWMAN 11/22/16 Apixaban* (Eliquis*) 5 Mg Tablet, 5 MG GTB BID for 30 Days, TAB Prov:PATRICK NEWMAN 11/22/16 Reported Medications Eye Lubricant Combination No.1 (Fresh[place]) 15 Ml Drops, 1 DRP BOTH EYES TID Y for DRY EYES, BOTTLE 11/16/16 Potassium Chloride* (K-Dur*) 20 Meq Tab.prt.sr, 20 MEQ PO DAILY, TAB.SA 11/16/16 Propranolol Hcl* (Propranolol Hcl*) 10 Mg Tablet, 10 MG NG-TUBE Q6, TAB 11/16/16 Sennosides* (Senna Lax*) 8.6 Mg Tablet, 1 TAB NG-TUBE DAILY Y for CONSTIPATION, TAB 11/16/16 Bisacodyl* (Bisacodyl*) 10 Mg Supp, 10 MG LA DAILY, SUPP 11/16/16 Atorvastatin Calcium* (Atorvastatin Calcium*) 20 Mg Tablet, 20 MG NG-TUBE QHS, # 30 TAB 11/16/16 Aspirin (Low Dose Aspirin) 81 Mg Tablet.dr, 81 MG PO DAILY, #30 TAB 11/16/16 Alprazolam* (Xanax*) 0.5 Mg Tab, 0.5 MG PO Q8H Y for ANXIETY, TAB 11/16/16 Follow-up Plan Follow-up with physicians- Primary care physician and Pulmonary physician at senior living facility Primary Care Provider Care Physician No Primary Time spent on discharge: > 30 minutes PATRICK NEWMAN Dec 05, 2016 14:22
== END 2016-12-03 20:08 | DRG 207 ==
LOC: E/R 14:24 → TEL 17:39
PROVIDERS: ADMIT Internal Medicine; ATTEND Internal Medicine
PROC: 5A1955Z Respiratory Ventilation, Greater than 96 Consecutive Hours (ICD-10-PCS; principal; 2016-11-16)
DX: J18.9 Pneumonia, unspecified organism (principal); I50.43 Acute on chronic combined systolic (congestive) and diastolic (congestive) heart failure; G82.50 Quadriplegia, unspecified; G12.21 Amyotrophic lateral sclerosis; J96.20 Acute and chronic respiratory failure, unspecified whether with hypoxia or hypercapnia; L89.893 Pressure ulcer of other site, stage 3; I11.0 Hypertensive heart disease with heart failure; R13.10 Dysphagia, unspecified; B37.49 Other urogenital candidiasis; E83.51 Hypocalcemia; Z93.0 Tracheostomy status; E87.6 Hypokalemia; Z66 Do not resuscitate; Z93.1 Gastrostomy status; Z86.718 Personal history of other venous thrombosis and embolism; D63.8 Anemia in other chronic diseases classified elsewhere; H91.3 Deaf nonspeaking, not elsewhere classified; Z79.82 Long term (current) use of aspirin
CPT/HCPCS: 36415; 36430; 36600; 71010; 80048; 80053; 80202; 81001; 82270; 82565; 82728; 82803; 83540; 83690; 83735; 83880; 84484; 84520; 85025; 85610; 85730; 86850; 86860; 86870; 86880; 86900; 86901; 86902; 86906; 86920; 86970; 86971; 87081; 93005; 93306; 94002; 94003; 94640; 94644; 94664; 96361; 96365; 96375; 97110; 97161; 97166; 97530; J1940; J0610; J0692; J1450; J1885; J2060; J2270; J2405; J3370; J3475; J3480; J7030; J7040; J7050; P9016; P9612

== ENCOUNTER 2017-05-04 16:54 | Inpatient (IN) | END 2017-05-06 08:57 | disposition EXP | DRG 871 ==